=== PATIENT | male | born 1950 | race Caucasian/White ===

== ENCOUNTER 2019-12-07 10:15 | Outpatient (REF) | payer MEDICARE, SELFPAY ==
--- NOTE | 2019-12-07 10:18 | XR_ITS ---
EXAMINATION: XR HIP, RIGHT CLINICAL INFORMATION: Unilateral primary osteoarthritis right hip COMPARISON: Pelvic radiographs 09/20/2019, or radiographs right hip 11/15/2017 TECHNIQUE: AP and frog-lateral projections of the right hip. FINDINGS: There are progressive osteoarthritic changes right hip greatest superior lateral aspect with joint narrowing, osteophytes, subchondral sclerosis, and small geodes. There is bulky osteophyte from the superior lateral acetabulum and small osteophyte base femoral head. There is no fracture or destructive process. No dislocation. The right SI joint in the pubis are unremarkable. IMPRESSION: Progressive osteoarthritic changes right hip.
== END 2019-12-07 10:16 | disposition home or self-care (01) ==
LOC: HO.XRAY 10:15
PROVIDERS: PCP Emergency Medicine; Referring Provider Emergency Medicine; Visit Provider Physician Assistant
DX: M16.11 Unilateral primary osteoarthritis, right hip (principal)
CPT/HCPCS: 73502; 99213

== ENCOUNTER → 2020-02-07 13:37 | Outpatient (BNVA) | payer MEDICARE, SELFPAY | PROVIDERS: PCP Emergency Medicine; Visit Provider Nurse Practitioner | DX: K21.9 Gastro-esophageal reflux disease without esophagitis (principal); K64.9 Unspecified hemorrhoids | CPT/HCPCS: Q3014 ==

== ENCOUNTER → 2020-02-18 12:55 | Outpatient (BNVA) | payer MEDICARE, SELFPAY | PROVIDERS: PCP Emergency Medicine; Visit Provider Surgery | DX: K64.4 Residual hemorrhoidal skin tags (principal) | CPT/HCPCS: 46600; 99202 ==

== ENCOUNTER → 2020-06-11 12:44 | Outpatient (BNVA) | payer MEDICARE, SELFPAY | PROVIDERS: PCP Internal Medicine; Visit Provider Nurse Practitioner | DX: K64.9 Unspecified hemorrhoids (principal); K21.9 Gastro-esophageal reflux disease without esophagitis; K59.04 Chronic idiopathic constipation; R10.33 Periumbilical pain | CPT/HCPCS: 99212 ==

== ENCOUNTER → 2020-06-16 12:41 | Outpatient (BNVA) | payer MEDICARE, SELFPAY | PROVIDERS: PCP Emergency Medicine; Visit Provider Orthopaedic Surgery | DX: M16.11 Unilateral primary osteoarthritis, right hip (principal); Z98.890 Other specified postprocedural states | CPT/HCPCS: 99212 ==

== ENCOUNTER 2020-06-24 09:31 | Outpatient (REF) | payer MEDICARE, SELFPAY ==
--- NOTE | ~2020-06-24 | FL_ITS ---
EXAMINATION: XR UPPER GI SERIES WITH SMALL BOWEL CLINICAL INFORMATION: Chronic etiopathic constipation COMPARISON: None. TECHNIQUE: Upper GI was performed using thin and thick barium and effervescent granules. Small bowel follow-through was subsequently performed following additional thin barium. FINDINGS: The esophagus is normal-appearing. No esophageal hernia, mass, stricture or reflux is seen. The stomach and duodenum are normal-appearing. No fold thickening, mass, ulcer or stricture is seen. Oral contrast reaches the colon at 30 minutes. Small bowel transit is normal. Small bowel mucosal pattern is normal. No fistula, mass, bowel wall thickening, stricture or evidence of obstruction is seen. FLUOROSCOPY TIME: 1.2 minutes DOSE AREA PRODUCT: 17 monique per centimeter squared. 38 saved fluoroscopic images. FL/FL upper GI small bowel IMPRESSION: Normal upper GI and small bowel follow-through.
== END 2020-06-24 09:32 | disposition home or self-care (01) ==
LOC: HO.XRAY 09:31
PROVIDERS: Visit Provider Nurse Practitioner
DX: K59.04 Chronic idiopathic constipation (principal); R10.33 Periumbilical pain
CPT/HCPCS: 74240; 74248

== ENCOUNTER → 2020-07-15 12:37 | Outpatient (BNVA) | payer MEDICARE, SELFPAY | PROVIDERS: Referring Provider Internal Medicine; Visit Provider Nurse Practitioner | DX: R10.33 Periumbilical pain (principal); K64.9 Unspecified hemorrhoids; K21.9 Gastro-esophageal reflux disease without esophagitis; K59.04 Chronic idiopathic constipation | CPT/HCPCS: 99212 ==

== ENCOUNTER → 2020-07-28 15:17 | Outpatient (BNVA) | payer MEDICARE, SELFPAY | PROVIDERS: PCP Internal Medicine; Visit Provider Surgery | DX: K64.8 Other hemorrhoids (principal) | CPT/HCPCS: 46600; 99212 ==

== ENCOUNTER 2020-08-12 06:38 | Day surgery (SDC) | payer MEDICARE, SELFPAY ==
[2020-08-06 14:25] VITALS: BMI 30.9
--- NOTE | 2020-08-11 08:45 | HO.ANESPROP2 ---
HPI - Anesthesia Eval Consult details Narrative: 70yo M for Hemorrhoidectomy, EUA PMFSH Active Problems Active Problems: All Active Problems (Updated 08/05/20 @ 15:38 by Clara Johns) Primary osteoarthritis of right hip (Acute) Chronic idiopathic constipation (Acute) GERD (gastroesophageal reflux disease) (Acute) Hemorrhoids (Acute) Periumbilical abdominal pain (Acute) Hemorrhoids with complication (Acute) Past Medical History Medical History GERD (gastroesophageal reflux disease) Hemorrhoids with complication Family History Family History Brother Diabetes Blind Surgical History Surgical History History of arthroplasty of left hip (11/09/16) History of colonoscopy History of esophagogastroduodenoscopy (EGD) History of prostate surgery (2004) History of pterygium excision Hx of cataract extraction Social History Social History Household Members: None Alcohol intake: current Alcohol intake frequency: holidays/special occasions only Alcohol type: beer Current occupational status: disabled 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
--- NOTE | 2020-08-12 07:18 | MHC.SHP ---
Pre-Procedural Eval Section B Chief Complaint: Hemorrhoids with complication Allergies: Allergies Allergy/AdvReac Type Severity Reaction Status Date / Time No Known Allergies Allergy Verified 07/28/20 15:32 [No Known Allergies*] Plan I have reviewed the history and physical and performed a pertinent physical examination on my patient. No changes have occurred unless specified.
[2020-08-12 07:24] VITALS: BP 139/77; PULSE 75; RESP 16; TEMP 36.3; O2SAT 95
[2020-08-12] MEDS: Lactated Ringers 1,000 ML 100 ML IVCONT (07:35)
--- NOTE | 2020-08-12 08:13 | P.CONAN_ITS ---
[facility] Active Problems Active Problems: All Active Problems (Updated 08/05/20 @ 15:38 by Clara de la paz) Primary osteoarthritis of right hip (Acute) Chronic idiopathic constipation (Acute) GERD (gastroesophageal reflux disease) (Acute) Hemorrhoids (Acute) Periumbilical abdominal pain (Acute) Hemorrhoids with complication (Acute) Past Medical History Medical History GERD (gastroesophageal reflux disease) Hemorrhoids with complication Family History Family History Brother Diabetes Blind Family history of problems with anesthesia: No Surgical History Surgical History History of arthroplasty of left hip (11/09/16) History of colonoscopy History of esophagogastroduodenoscopy (EGD) History of prostate surgery (2004) History of pterygium excision Hx of cataract extraction History of Problems with Anesthesia: No Social History Social History Household Members: None Alcohol intake: current Alcohol intake frequency: holidays/special occasions only Alcohol type: beer Advance Directives Information Provided: No Current occupational status: disabled 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 Meds Allergies Allergy/AdvReac Type Severity Reaction Status Date / Time No Known Allergies Allergy Verified 07/28/20 15:32 [No Known Allergies*] Active Medications: Current Medications Generic Name Dose Route Start Last Admin Trade Name Freq PRN Reason Stop Dose Admin Lactated Ringer's 1,000 mls @ 100 mls/hr 08/12/20 06:15 08/12/20 07:35 Lr IVCONT 100 mls/hr .Q10H IVETTE Administration Home Medications Medication Instructions Recorded Confirmed Last Taken Type tamsulosin 0.4 mg capsule 0.4 mg PO BEDTIME 12/07/19 08/06/20 Unknown History zolpidem 5 mg tablet 5 mg PO BEDTIME PRN 12/07/19 08/06/20 Unknown History Exam Exam Date and Time: August 12, 2020 0813 Height,Weight and Vital Signs: Height 5 ft 6 in Weight 87 kg Last Vital Signs Temp 97.4 F 08/12/20 07:24 Pulse 75 08/12/20 07:24 Resp 16 08/12/20 07:24 BP 139/77 08/12/20 07:24 Pulse Ox 95 08/12/20 07:24 Airway Mallampati Class: I TM Dist: <=3cm Neck ROM: Full Denture: Upper and Lower Assessment and Plan Assessment Anesthesia Assessment: Anesthesia Plan Discussed and Chart Reviewed Final Anesthetic Review NPO: Yes ASA Class: II Final Preanesthetic Review: No Changes in Pt Med Stat, Meds/Allgs Chart Reviewed, Consent Obtained/Reviewed and Anes Risks/Benef Reviewed Patient Risk: Low Procedure Risk: Intermediate Anesthetic Plan Anesthetic Plan: GA and Agree w/ Assess. and Plan Disposition: Standard PACU
--- NOTE | 2020-08-12 09:06 | P.OP_ITS ---
Operative Note Operative Note Date of Service: 08/12/20 Narrative: Preop diagnosis: Internal and external hemorrhoids with pain and recurrent swelling Postop diagnosis: As above Procedure: Exam under anesthesia, hemorrhoidectomy x2 columns Surgeon: José Miguel Kessler MD The patient is a 70-year-old male who has had a long history of hemorrhoids with significant pain and discomfort. In view of worsening symptoms he wanted to proceed with hemorrhoidectomy. He understood the technique of the procedure. He was aware of the risks, benefits, and alternatives. She was brought to the operating room and placed in prone yash-knife position under general anesthesia via laryngeal mask airway. The buttocks were retracted with wide tape laterally. The perianal area was prepped and draped in the usual sterile fashion. A surgical time-out was done. The patient received Cefotan 2 g IV preoperatively Examination of the anal orifice revealed moderate-sized external hemorrhoids on both left and right side. I inserted the Jesus Granda retractor and examined the anal canal circumferentially. Again this mix of internal and external columns were seen on the left and right side. There were no other lesions. There was no fissure. There was no induration in the anal canal. I applied a Orr grasper at the hemorrhoidal column on the right side which was the bigger column. I applied a [id number] stitch with chromic 3- 0 at its pedicle past the dentate line. I made an incision around this hemorrhoidal column to the perianal skin using blade 15. I excised this hemorrhoidal column above the plane of sphincters along this incision using fine scissors all the way to the pedicle. I closed this incision with a running chromic 3-0 stitch. Additional hemostatic sutures with a chromic 3-0 were then placed. I then proceeded to retract the hemorrhoidal column on the left side with a Orr grasper as well. I applied a fvdtwx-[id number] chromic 3-0 stitch at the pedicle. I made an incision around this hemorrhoidal column all the way to the perianal skin using a blade 15. I excised this hemorrhoidal column above the plane of sphincters using scissors. I closed this incision with a running chromic 3-0 stitch. Additional hemostatic sutures with a chromic 3-0 were then placed Once hemostasis was ensured, I infiltrated the perianal area with Marcaine 0.5% for postop analgesia. I positioned a rolled Gelfoam into the anal canal for additional hemostasis. Procedures on completed The patient tolerated procedure well. There were no complication noted. Initial and final counts of sponges and instruments were correct. Estimated blood loss about 20 cc The patient was extubated without difficulty and transferred to the recovery room with stable vital signs.
[2020-08-12 09:10] VITALS: BP 154/88; PULSE 72; RESP 18; TEMP 36.5; O2SAT 99
--- NOTE | 2020-08-12 09:10 | PM.OP ---
Brief Operative Note Date of Service: 08/12/20 Pre-op diagnosis: Internal and external hemorrhoids Post-op diagnosis: same Procedure: Exam under anesthesia hemorrhoidectomy x2 Surgeon: José Miguel Kessler MD Anesthesia: GLMA Was an Hot Metal Car Operator used for this Procedure?: No Estimated blood loss (mL): 20 Pathology: other (Hemorrhoids) Condition: stable Disposition: PACU
[2020-08-12 09:15] VITALS: BP 147/78; PULSE 68; RESP 16; O2SAT 100
[2020-08-12] MEDS: oxyCODONE HCl Immed Release 5 MG TABLET PO (09:18)
[2020-08-12] MEDS: Acetaminophen 325 MG TABLET 650 MG PO (09:18)
[2020-08-12 09:20] VITALS: BP 142/79; PULSE 72; RESP 18; O2SAT 99
[2020-08-12 09:25] VITALS: BP 141/67; PULSE 64; RESP 16; O2SAT 98
[2020-08-12 09:40] VITALS: BP 137/76; PULSE 67; RESP 18; O2SAT 98
== END 2020-08-12 10:44 | disposition home or self-care (01) ==
PROVIDERS: Visit Provider Surgery
PROC: (CPT 46260; principal; 2020-08-12 08:30)
DX: K64.8 Other hemorrhoids (principal); K64.4 Residual hemorrhoidal skin tags; K21.9 Gastro-esophageal reflux disease without esophagitis; Z79.899 Other long term (current) drug therapy
CPT/HCPCS: 46260; 88304; J3010

== ENCOUNTER → 2020-08-19 10:02 | Outpatient (BNVA) | payer MEDICARE, SELFPAY | PROVIDERS: PCP Internal Medicine; Visit Provider Orthopaedic Surgery ==

== ENCOUNTER → 2020-09-01 14:59 | Outpatient (BNVA) | payer MEDICARE, SELFPAY | PROVIDERS: PCP Internal Medicine; Visit Provider Surgery | DX: Z48.815 Encounter for surgical aftercare following surgery on the digestive system (principal); Z87.19 Personal history of other diseases of the digestive system | CPT/HCPCS: 99212 ==

== ENCOUNTER 2020-09-18 | Outpatient (REF) | payer MEDICARE, SELFPAY ==
--- NOTE | 2020-08-19 11:02 | ECG_ITS ---
Test Reason : PREPROC EXAM Blood Pressure : / mmHG Vent. Rate : 066 BPM Atrial Rate : 066 BPM P-R Int : 158 ms QRS Dur : 080 ms QT Int : 374 ms P-R-T Axes : 064 018 033 degrees QTc Int : 392 ms Sinus rhythm with Premature atrial complexes with Aberrant conduction Otherwise normal ECG When compared with ECG of 04-SEP-2015 23:12, Aberrant conduction is now Present Referred By: Hang Manzo Electronically Signed By:LATOSHA WOLFF MD
[2020-08-19 11:43] LABS: MANUAL DIFF FLAG NO
[2020-08-19 11:59] LABS: Basophils Percent Auto 0.4 % (0-2); Eosinophils Absolute Auto 0.2 X10*3/uL (0.0-0.4); Eosinophils Percent Auto 2.4 % (0-4); Hematocrit 38.5 % (42-52); Hemoglobin 12.9 g/dl (14.0-18.0); Imm Gran Abs Auto 0.05 X10*3/uL (0.00-0.03); Imm Gran Pct Auto 0.7 % (0.0-0.4); Lymphocytes Absolute Auto 2.1 X10*3/uL (1.2-4.9); Lymphocytes Percent Auto 27.9 % (20-40); Mean Corpuscular HGB Conc 33.5 g/dl (31.0-36.0); Mean Corpuscular Hemoglobin 30.7 pg (27.0-33.0); Mean Corpuscular Volume 91.7 fL (80-98); Mean Platelet Volume 9.9 fL (9.4-12.4); Monocytes Absolute Auto 0.6 X10*3/uL (0.1-1.2); Monocytes Percent Auto 7.6 % (2-11); Neutrophils Absolute Auto 4.6 X10*3/uL (2.0-8.3); Platelet Count 270 X10*3/uL (160-400); Red Cell Distribution Width 13.6 % (11.0-16.0); White Blood Count 7.5 X10*3/uL (4.8-10.8)
[2020-08-19 12:40] LABS: Anion Gap 11 (12-20); Blood Urea Nitrogen 11 mg/dL (9-16); Calcium 9.8 mg/dL (8.4-10.2); Carbon Dioxide 21 mmol/L (22-29); Chloride 113 mmol/L (96-108); Estimated Glomerular Filt Rate > 60; Glucose Random 89 mg/dL (60-115); Potassium 4.3 mmol/L (3.3-5.1); Sodium 141 mmol/L (135-145)
== END 2020-09-18 00:01 | disposition home or self-care (01) ==
LOC: HO.LAB
PROVIDERS: PCP Internal Medicine; Visit Provider Orthopaedic Surgery
DX: Z01.812 Encounter for preprocedural laboratory examination (principal); Z01.810 Encounter for preprocedural cardiovascular examination; M16.11 Unilateral primary osteoarthritis, right hip; I49.3 Ventricular premature depolarization; I45.89 Other specified conduction disorders
CPT/HCPCS: 36415; 80048; 85025; 93005

== ENCOUNTER → 2020-10-09 12:34 | Outpatient (BNVA) | payer MEDICARE, SELFPAY | PROVIDERS: PCP Internal Medicine; Visit Provider Physician Assistant | DX: M16.11 Unilateral primary osteoarthritis, right hip (principal) | CPT/HCPCS: 99212 ==

== ENCOUNTER 2020-10-15 06:36 | Inpatient (IN) | payer MEDICARE, SELFPAY ==
[2020-09-18 12:32] VITALS: BP 112/69; PULSE 70; RESP 20; O2SAT 98; BMI 29.8
--- NOTE | 2020-09-18 13:05 | P.CONAN_ITS ---
Documented by User: Yusra Becerril NP 10/14/20 09:18 HPI - Anesthesia Eval Consult details Narrative: 70yo M for for Right Total Hip Replacement s/p hemmoroidectomy 07/2020 with GA-LMA 4 s/p L MERISSA 2016. Anesthesia went very well per patient. Old record requested. PCP cleared [facility] Active Problems Active Problems: All Active Problems (Updated 09/18/20 @ 12:45 by Clara Johns) Primary osteoarthritis of right hip (Acute) Chronic idiopathic constipation (Acute) GERD (gastroesophageal reflux disease) (Acute) Hemorrhoids (Acute) Periumbilical abdominal pain (Acute) Hemorrhoids with complication (Acute) Past Medical History Medical History Arthritis COVID-19 vaccine administered GERD (gastroesophageal reflux disease) Hemorrhoids with complication History of BPH HTN (hypertension) Family History Family History Brother Diabetes Blind Family history of problems with anesthesia: No Surgical History Surgical History History of arthroplasty of left hip (11/09/16) History of colonoscopy History of esophagogastroduodenoscopy (EGD) History of hemorrhoidectomy History of prostate surgery (2004) History of pterygium excision Hx of cataract extraction History of Problems with Anesthesia: No Social History Social History Household Members: None Are you a primary director career services to a significant other at home: No Do you presently have visiting nurse or other home services: Yes ([facility]) Alcohol intake: current Alcohol intake frequency: holidays/special occasions only Alcohol type: beer Patient Tobacco Use Status: Never used Tobacco Are you DNR?: No Advance Directives: No Advance Directives Information Provided: Yes (states his son Sharif-no official HCP on file) Advance Directives on File: No Recently lost weight without trying: No Eating poorly because of decreased appetite: No Nutrition Risks: No Nutritional Risk Poor oral hygiene: No (one upper implant screw but no teeth at this time) Current occupational status: disabled 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 Narrative Narrative: No recent illness No CP/SOB within limits of pain Meds Allergies Allergy/AdvReac Type Severity Reaction Status Date / Time No Known Allergies Allergy Verified 10/09/20 12:42 [No Known Allergies*] Home Medications Medication Instructions Recorded Confirmed Last Taken Type tamsulosin 0.4 mg capsule (Flomax) 0.4 mg PO BEDTIME 12/07/19 09/18/20 Unknown History zolpidem 5 mg tablet (Ambien) 5 mg PO BEDTIME PRN 12/07/19 09/18/20 Unknown History lisinopril 10 mg tablet 1 tab PO DAILY 09/18/20 09/18/20 Unknown History paroxetine HCl 20 mg tablet 1 tab PO DAILY 09/18/20 09/18/20 Unknown History sennosides 8.6 mg tablet (senna) 2 tab PO DAILY PRN 09/18/20 09/18/20 Unknown History Exam Exam Date and Time: September 18, 2020 1305 Height,Weight and Vital Signs: Height 5 ft 6 in Weight 83.915 kg Last Vital Signs Pulse 70 09/18/20 12:32 Resp 20 09/18/20 12:32 BP 112/69 09/18/20 12:32 Pulse Ox 98 09/18/20 12:32 Pertinent Lab Results Pertinent Lab Results: Laboratory Tests 08/19/20 08/19/20 11:10 11:10 WBC 7.5 Hgb 12.9 L Hct 38.5 L Plt Count 270 Sodium 141 Potassium 4.3 Chloride 113 H Carbon Dioxide 21 L BUN 11 Creatinine 1.15 Lab Results 09/18/20 10/10/20 Range/Units 13:00 14:25 Nasal Screen MRSA (PCR) NEGATIVE (Negative) Nasal S. aureus Screen POSITIVE A (Negative) Nasal MRSA/S.aureus Interp SEE NOTE Blood Type A Positive Antibody Screen NEGATIVE Narrative Narrative: EKG 07/2020 Vent. Rate : 066 BPM ? ? Atrial Rate : 066 BPM ?? P-R Int : 158 ms? QRS Dur : 080 ms ? ? QT Int : 374 ms ? ? ? P-R-T Axes : 064 018 033 degrees ?? QTc Int : 392 ms ? Sinus rhythm with Premature atrial complexes with Aberrant conduction Otherwise normal ECG When compared with ECG of 04-SEP-2015 23:12, Aberrant conduction is now Present Airway Mallampati Class: II TM Dist: >3cm Neck ROM: Full Loose/Missing/Broken Teeth: Yes Heart: RRR Lungs: CTAB Assessment and Plan Assessment Anesthesia Assessment: Anesthesia Plan Discussed and PAT Visit Final Anesthetic Review Family History of Problems with Anesthesia: No History of Problems with Anesthesia: No Documented by User: Yana Gonzalez MD 10/15/20 07:04 [facility] Past Medical History Medical History Arthritis COVID-19 vaccine administered GERD (gastroesophageal reflux disease) Hemorrhoids with complication History of BPH HTN (hypertension) Family History Family History Brother Diabetes Blind Surgical History Surgical History History of arthroplasty of left hip (11/09/16) History of colonoscopy History of esophagogastroduodenoscopy (EGD) History of hemorrhoidectomy History of prostate surgery (2004) History of pterygium excision Hx of cataract extraction Social History Social History Household Members: None Are you a primary director career services to a significant other at home: No Do you presently have visiting nurse or other home services: Yes ([employer]-gran daughter) Alcohol intake: current Alcohol intake frequency: holidays/special occasions only Alcohol type: beer Patient Tobacco Use Status: Never used Tobacco Are you DNR?: No Advance Directives: No Advance Directives Information Provided: Yes (states his son Sharif-no official HCP on file) Advance Directives on File: No Recently lost weight without trying: No Eating poorly because of decreased appetite: No Nutrition Risks: No Nutritional Risk Poor oral hygiene: No (one upper implant screw but no teeth at this time) Current occupational status: disabled 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 Meds Allergies Allergy/AdvReac Type Severity Reaction Status Date / Time No Known Allergies Allergy Verified 10/09/20 12:42 [No Known Allergies*] Home Medications Medication Instructions Recorded Confirmed Last Taken Type tamsulosin 0.4 mg capsule (Flomax) 0.4 mg PO BEDTIME 12/07/19 09/18/20 Unknown History zolpidem 5 mg tablet (Ambien) 5 mg PO BEDTIME PRN 12/07/19 09/18/20 Unknown History lisinopril 10 mg tablet 1 tab PO DAILY 09/18/20 09/18/20 Unknown History paroxetine HCl 20 mg tablet 1 tab PO DAILY 09/18/20 09/18/20 Unknown History sennosides 8.6 mg tablet (senna) 2 tab PO DAILY PRN 09/18/20 09/18/20 Unknown History Assessment and Plan Assessment Anesthesia Assessment: Chart Reviewed Final Anesthetic Review NPO: Yes ASA Class: II Final Preanesthetic Review: No Changes in Pt Med Stat, Meds/Allgs Chart Reviewed, Consent Obtained/Reviewed and Anes Risks/Benef Reviewed Patient Risk: Low Procedure Risk: Intermediate Assessment/Block/Sedation in SS: Assess/Block/Sedation- Anesthetic Plan Anesthetic Plan: GA
[2020-09-18 15:13] LABS: MRSA Nasal PCR NEGATIVE (Negative); SA Nasal PCR POSITIVE (Negative)
[2020-10-15] VITALS (13 sets, daily range): BP systolic 127–151; BP diastolic 54–95; PULSE 62–99; RESP 16–20; TEMP 36.3–36.8; O2SAT 94–100
--- NOTE | ~2020-10-15 | XR_ITS ---
EXAMINATION: XR PELVIS CLINICAL INFORMATION: Post right hip replacement COMPARISON: Previous x-ray most recent November 2019 TECHNIQUE: AP view of the pelvis. FINDINGS: There is a new right hip replacement in satisfactory position. No fracture or dislocation is seen. There is a left hip replacement that appears unchanged. Soft tissues are unremarkable. XR/XR pelvis 1-2V IMPRESSION: Satisfactory appearance of right hip replacement.
[2020-10-15 06:51] LABS: COVID-19 Test Negative (Negative)
[2020-10-15] MEDS: oxyCODONE HCl ER 10 MG TAB.ER.12H PO ×2 (07:08→20:03)
[2020-10-15] MEDS: Lactated Ringers 1,000 ML 100 ML IVCONT (07:22)
--- NOTE | 2020-10-15 07:26 | MHC.SHP ---
Pre-Procedural Eval Section A Date of Service: 10/15/20 The patient is an INPATIENT: No Changes since office visit: Yes Patient answered all questions; No Cold of Flu in the past 2 weeks, No New Medical Problems and No Changes in Medication The History & Physical has been completed within 30 days and I have reviewed it.: Yes Section B Chief Complaint: Osteoarthritis Right Hip Allergies: Allergies Allergy/AdvReac Type Severity Reaction Status Date / Time No Known Allergies Allergy Verified 10/15/20 07:07 [No Known Allergies*] Plan I have reviewed the history and physical and performed a pertinent physical examination on my patient. No changes have occurred unless specified.
--- NOTE | 2020-10-15 09:26 | P.BOP_ITS ---
Brief Operative Note Date of Service: 10/15/20 Pre-op diagnosis: right hip OA Post-op diagnosis: same Procedure: right MERISSA Implants: Trident 2 52; Accolade 2 #5 127 deg with 36 -2.5 ceramic head and 20 deg post lip liner Surgeon: Hang Manzo MD Anesthesia: GETA and local Was an Technical Solutions Consultant used for this Procedure?: Yes Technical Solutions Consultant: Margoth Sadler Estimated blood loss (mL): 150 IV fluids (mL): 1,000 Pathology: other Condition: stable Disposition: PACU
--- NOTE | 2020-10-15 09:33 | P.OP_ITS ---
Operative Note Operative Note Date of Service: 10/15/20 Narrative: Pre-op diagnosis: right hip OA Post-op diagnosis: same Procedure: right MERISSA Implants: Trident 2 52; Accolade 2 #5 127 deg with 36 -2.5 ceramic head and 20 deg post lip liner Surgeon: Hang Manzo MD Anesthesia: GETA and local Was an Digital Design Engineer used for this Procedure?: Yes Digital Design Engineer: Margoth Sadler Estimated blood loss (mL): 150 IV fluids (mL): 1,000 Pathology: other Condition: stable Disposition: PACU Procedure in detail: Patient was brought into the operating room and placed in the lateral decubitus position. All bony prominences were well padded and the limb was prepped and draped in standard sterile fashion. Time-out was called to identify proper site, procedure, proper surgeon and IV antibiotics and 1 g of transaxemic acid were administered. I began by making a curvilinear incision over the ophthalmic assistant olateral aspect of the greater trochanter. Dissection was taken down to the tensor fascia which was incised in line with the incision and a Charnley retractor was placed. Cautery was used to maintain hemostasis. The hip was internally rotated and the external rotators were identified. The vessels were cauterized and a full-thickness capsular/external rotator layer was developed starting just proximal to the piriformis. This layer was tagged and a dull Hohmann retractor was placed underneath the neck in the hip was dislocated. The head was deformed and eburnated. A neck cut was made 1 cm proximal to the lesser trochanter and the head and neck were removed and measured on the back table. I then placed my anterior and posterior acetabular retractors and performed a labrectomy. The cup was reamed to a 52 and I then impacted a 52 cup at approximately 45 degrees of inclination and 25 degrees of version. I then placed a ___20 deg posterior lipped liner and turned my attention to the femur. I identified the piriformis insertion and used this as a starting point for my alida cutter. The medius tendon was protected with a Hibs retractor. I then used a Charnley awl to identify the canal and a curved curette to remove the lateral bone. I then sequentially broached in the patient's natural version to a size 5 and placed my trial implants. Using a -5 36 head. I took the hip through range of motion and was very satisfied with the stability and length. Therefore removed all instrumentation copiously irrigated placed my final femoral implant. I again took the hip through range of motion and was satisfied with the stability and length using a -2.5 and so my final femoral head was impacted in place. I then irrigated for 3 minutes with iodine and placed 1 g of local TXA. I then performed a capsular closure with FiberWire, Marc's fascia with 0 Vicryl, subcuticular with 2-0 vicryl and skin with carlota. Patient was placed into a sterile dressing. Radiographs were obtained at the completion of the case and I was satisfied with the component position. Patient was extubated brought to the recovery room in stable condition.
[2020-10-15] MEDS: HYDROmorphone HCl 0.5 MG/0.5 ML SYRINGE IVPUSH (09:51)
[2020-10-15] MEDS: oxyCODONE HCl Immed Release 5 MG TABLET PO (10:50)
[2020-10-15] MEDS: Dextrose 5 % and 0.45 % NaCl 1,000 ML 80 ML IVCONT ×2 (11:41→21:41)
[2020-10-15] MEDS: HYDROmorphone HCl 0.5 MG/0.5 ML SYRINGE 0.25 MG IVPUSH (12:08)
--- NOTE | 2020-10-15 13:23 | HO.PM.IMCN ---
History of Present Illness Data of Consult Service Date: 10/15/20 Requesting physician: Hang Manzo Primary Care Provider: Frances Lua MD [facility] Reason for consult: Medical Management This is a 70 yo M with a PMH as outlined below who is admitted post-op from a [facility] under the orthopedic services. Medical services are consulted for management of his medical issues. Patient is seen and examined on med/surg with the help of a Nigerian speaking computer hardware designer. The patient reports no active complaints. He ambulated with PT and reports he felt well doing so. In regards to his chronic medical problems, he reports he has none. Review of Systems Review of Systems: General - no fevers or chills Cardiovascular - no chest pain Respiratory - no shortness of breath or cough Abdominal- no abdominal pain, nausea, vomiting, diarrhea PMFSH Medical History Arthritis COVID-19 vaccine administered GERD (gastroesophageal reflux disease) Hemorrhoids with complication History of BPH HTN (hypertension) Family History Brother Diabetes Blind Pertinent family history: Diabetes in brother, mother Surgical History History of arthroplasty of left hip (11/09/16) History of colonoscopy History of esophagogastroduodenoscopy (EGD) History of hemorrhoidectomy History of prostate surgery (2004) History of pterygium excision Hx of cataract extraction Social History Household Members: None Are you a primary direct support professional caregiver to a significant other at home: No Do you presently have visiting nurse or other home services: Yes ([facility]) Alcohol intake: current Alcohol intake frequency: holidays/special occasions only Alcohol type: beer Patient Tobacco Use Status: Never used Tobacco Currently Displaying Signs/Symptoms of Drug Intoxication Withdrawal: No Are you DNR?: No Advance Directives: No Advance Directives Information Provided: Yes (states his son Sharif-no official HCP on file) Advance Directives on File: No Do you have thoughts of harming others: None Recently lost weight without trying: No Eating poorly because of decreased appetite: No Nutrition Risks: No Nutritional Risk Poor oral hygiene: No (one upper implant screw but no teeth at this time) Current occupational status: disabled 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 Meds Allergies Allergy/AdvReac Type Severity Reaction Status Date / Time No Known Allergies Allergy Verified 10/15/20 07:07 [No Known Allergies*] Active Medications: Current Medications Generic Name Dose Route Start Last Admin Trade Name Freq PRN Reason Stop Dose Admin Acetaminophen 650 mg 10/15/20 09:39 Acetaminophen 325 Mg Tablet PO Q6H PRN Pain, Mild (Pain Scale 1-3) Celecoxib 200 mg 10/15/20 21:00 Celecoxib 200 Mg Capsule PO BID [facility] Docusate Sodium 100 mg 10/15/20 21:00 Docusate Sodium 100 Mg Capsule PO BID IVETTE Docusate Sodium 100 mg 10/15/20 21:00 Docusate Sodium 100 Mg Capsule PO BID [facility] Hydromorphone HCl 0.25 mg 10/15/20 09:39 10/15/20 12:08 Hydromorphone Hcl 0.5 Mg/0.5 Ml Syringe IVPUSH 0.25 mg Q4H PRN Administration Pain, Severe (Pain Scale 7-10) Protocol Dextrose/Sodium Chloride 1,000 mls @ 80 mls/hr 10/15/20 09:45 10/15/20 11:41 D51/2ns IVCONT 80 mls/hr .[id number] IVETTE Administration Cefazolin Sodium 2 gm/ Sodium 50 mls @ 100 mls/hr 10/15/20 14:00 Chloride IV 10/15/20 14:29 POSTOP ONE Lisinopril 10 mg 10/16/20 09:00 Lisinopril 10 Mg Tablet PO DAILY [facility] Protocol Non-Formulary Medication 60 mg 10/15/20 21:00 Dexlansoprazole [Dexilant] PO BEDTIME IVETTE Ondansetron HCl 4 mg 10/15/20 09:39 Ondansetron Hcl 4 Mg/2 Ml Vial IVPUSH Q8H PRN Nausea and Vomiting Oxycodone HCl 10 mg 10/15/20 21:00 Oxycodone Hcl Er 10 Mg Tab.Er.12h PO BID IVETTE Oxycodone HCl 5 - 10 mg 10/15/20 13:19 Oxycodone Hcl Immed Release 5 Mg Tablet PO Q4H PRN Pain, Moderate (Pain Scale 4-6 Paroxetine HCl 20 mg 10/16/20 09:00 Paroxetine Hcl 20 Mg Tablet PO DAILY IVETTE Sodium Chloride 3 ml 10/15/20 16:00 0.9 % Sodium Chloride Flush 3 Ml Syringe IVFLUSH QSHIFT IVETTE Tamsulosin HCl 0.4 mg 10/15/20 21:00 Tamsulosin Hcl 0.4 Mg Capsule PO BEDTIME IVETTE Zolpidem Tartrate 5 mg 10/15/20 13:15 Zolpidem Tartrate 5 Mg Tablet PO BEDTIME PRN Insomnia Home Medications Medication Instructions Recorded Confirmed Last Taken Type tamsulosin 0.4 mg capsule (Flomax) 0.4 mg PO BEDTIME 12/07/19 09/18/20 Unknown History zolpidem 5 mg tablet (Ambien) 5 mg PO BEDTIME PRN 12/07/19 09/18/20 Unknown History lisinopril 10 mg tablet 1 tab PO DAILY 09/18/20 09/18/20 Unknown History paroxetine HCl 20 mg tablet 1 tab PO DAILY 09/18/20 09/18/20 Unknown History sennosides 8.6 mg tablet (senna) 2 tab PO DAILY PRN 09/18/20 09/18/20 Unknown History Physical Exam Vital Signs and Narrative: Vital Signs: Last Vital Signs Temp 97.3 F 10/15/20 12:00 Pulse 67 10/15/20 12:00 Resp 17 10/15/20 12:00 BP 146/75 H 10/15/20 12:00 Pulse Ox 99 10/15/20 12:00 Body Mass Index 29.8 Const: Other: General - no acute distress, appears comfortable Cardiovascular - regular rate and rhythm, S1-S2 Lungs - normal respiratory effort, clear to auscultation bilaterally, no wheezing Abdomen - soft, nontender, no rebound or guarding Extremities - no edema bilaterally Neuro - awake and alert, no focal deficits Results Labs Labs: Laboratory Results - last 24 hr 10/15/20 06:30 COVID-19 ([facility]) Negative COVID-19 Clin Com See Note Imaging Radiologist's Impressions: Impressions Pelvis X-Ray 10/15/20 08:20 IMPRESSION: Satisfactory appearance of right hip replacement. Assessment and Plan (1) Primary osteoarthritis of right hip: Status: Acute This is a 70 yo M with who is admitted under the orthopedic services post-op from a R [facility]. Medical services consulted for medical management. 1. HTN continue lisinopril 2. GERD PPI -- his home med is NF, changed to Prilosec 3. Constipation continue scheduled colace 4. Mood continue Paroxetine 5. BPH flomax 6. R [facility] mgmt per ortho Medically stable, will follow up as needed. If any specific questions, please re-consult PRN or [facility]. Thank you.
[2020-10-15] MEDS: oxyCODONE HCl Immed Release 5 MG TABLET 10 MG PO (14:05)
[2020-10-15] MEDS: Tamsulosin HCL 0.4 MG CAPSULE PO (20:03)
[2020-10-15] MEDS: Docusate Sodium 100 MG CAPSULE PO (20:03)
[2020-10-15] MEDS: Omeprazole 40 MG CAPSULE.DR PO (20:03)
[2020-10-15] MEDS: Celecoxib 200 MG CAPSULE PO (20:03)
[2020-10-16] VITALS (7 sets, daily range): BP systolic 106–131; BP diastolic 63–65; PULSE 63–80; RESP 16–18; TEMP 36.1–36.7; O2SAT 96–98
[2020-10-16] MEDS: diphenhydrAMINE HCL 25 MG TABLET PO (00:37)
[2020-10-16 06:18] LABS: Hematocrit 34.9 % (42-52); Hemoglobin 11.7 g/dl (14.0-18.0)
[2020-10-16] MEDS: oxyCODONE HCl Immed Release 5 MG TABLET PO (06:27)
[2020-10-16 06:46] LABS: Anion Gap 9 (12-20); Blood Urea Nitrogen 9 mg/dL (9-16); Carbon Dioxide 26 mmol/L (22-29); Chloride 106 mmol/L (96-108); Creatinine Clr Calc Pharmacy 84.5; Estimated Glomerular Filt Rate > 60; Glucose Fasting 135 mg/dL (60-99); Potassium 4.1 mmol/L (3.3-5.1); Sodium 137 mmol/L (135-145)
--- NOTE | 2020-10-16 07:45 | P.PNOP_ITS ---
Subjective Subjective Date of Service: 10/16/20 Interval history: POD! s/p RTHA with Dr. Manzo. Patient is resting comfortably in bed. NO overnight events. Pain is well managed. No additional complaints. Physical Exam Vital Signs: Vital Signs: Last Vital Signs Temp 96.9 F 10/16/20 07:31 Pulse 66 10/16/20 07:31 Resp 16 10/16/20 07:31 BP 131/65 10/16/20 07:31 Pulse Ox 96 10/16/20 07:31 Body Mass Index 29.8 Const: General: cooperative, healthy appearing and no acute distress Resp: Effort & Inspection: normal respiratory effort and able to speak in complete sentences Cardio: Rate: regular rate Peripheral pulses: Peripheral pulses 2+ throughout GI: Palpation (GI): Soft to palpation Skin: Lesions: no lesions Rashes: no rashes Extrem: Other: Right hip aquacel is clean, dry, and intact. Patient is able to plantarflex and dorsiflex. NVI. Procedures Date of Service Date of Service: 10/16/20 Progress Note: A&P Assessment and plan (1) Status post total replacement of right hip: Status: Acute Assessment and Plan: Continue pain mgmnt Begin ASA for dvt ppx Continue PT for RTHA Dispo planning-Continue PT today and pain mgmnt Fall Risk Details Current Medications: Current Medications Generic Name Dose Route Start Last Admin Trade Name Freq PRN Reason Stop Dose Admin Acetaminophen 650 mg 10/15/20 09:39 Acetaminophen 325 Mg Tablet PO Q6H PRN Pain, Mild (Pain Scale 1-3) Celecoxib 200 mg 10/15/20 21:00 10/15/20 20:03 Celecoxib 200 Mg Capsule PO 200 mg BID IVETTE Administration Docusate Sodium 100 mg 10/15/20 21:00 10/15/20 20:03 Docusate Sodium 100 Mg Capsule PO 100 mg BID IVETTE Administration Hydromorphone HCl 0.25 mg 10/15/20 09:39 10/15/20 12:08 Hydromorphone Hcl 0.5 Mg/0.5 Ml Syringe IVPUSH 0.25 mg Q4H PRN Administration Pain, Severe (Pain Scale 7-10) Protocol Dextrose/Sodium Chloride 1,000 mls @ 80 mls/hr 10/15/20 09:45 10/15/20 21:41 D51/2ns IVCONT 80 mls/hr .[id number] IVETTE Administration Lisinopril 10 mg 10/16/20 09:00 Lisinopril 10 Mg Tablet PO DAILY [facility] Protocol Omeprazole 40 mg 10/15/20 21:00 10/15/20 20:03 Omeprazole 40 Mg Capsule.Dr PO 40 mg BEDTIME IVETTE Administration Ondansetron HCl 4 mg 10/15/20 09:39 Ondansetron Hcl 4 Mg/2 Ml Vial IVPUSH Q8H PRN Nausea and Vomiting Oxycodone HCl 10 mg 10/15/20 21:00 10/15/20 20:03 Oxycodone Hcl Er 10 Mg Tab.Er.12h PO 10 mg BID IVETTE Administration Oxycodone HCl 5 mg 10/15/20 13:19 10/16/20 06:27 Oxycodone Hcl Immed Release 5 Mg Tablet PO 5 mg Q4H PRN Administration Pain, Moderate (Pain Scale 4-6 Oxycodone HCl 10 mg 10/15/20 13:28 10/15/20 14:05 Oxycodone Hcl Immed Release 5 Mg Tablet PO 10 mg Q4H PRN Administration Pain, Severe (Pain Scale 7-10) Paroxetine HCl 20 mg 10/16/20 09:00 Paroxetine Hcl 20 Mg Tablet PO DAILY IVETTE Sodium Chloride 3 ml 10/15/20 16:00 10/16/20 00:17 0.9 % Sodium Chloride Flush 3 Ml Syringe IVFLUSH Not Given QSHIFT IVETTE Tamsulosin HCl 0.4 mg 10/15/20 21:00 10/15/20 20:03 Tamsulosin Hcl 0.4 Mg Capsule PO 0.4 mg BEDTIME IVETTE Administration Zolpidem Tartrate 5 mg 10/15/20 13:15 Zolpidem Tartrate 5 Mg Tablet PO BEDTIME PRN Insomnia Time Spent With Patient Time: Total time spent is greater than 50% in coordination of care (as documented) at patient's floor/unit and/or counseling patient: Time with patient: less than 15 minutes Quality Stroke Does the patient have a stroke diagnosis?: No VTE Prior VTE?: No VTE Risk Level:: Surgical - low VTE Device Contraindication: N/A - Device Ordered VTE Drug Contraindication: N/A - Med Ordered
[2020-10-16] MEDS: Docusate Sodium 100 MG CAPSULE PO (07:48)
[2020-10-16] MEDS: oxyCODONE HCl ER 10 MG TAB.ER.12H PO (07:48)
[2020-10-16] MEDS: Celecoxib 200 MG CAPSULE PO (07:49)
[2020-10-16] MEDS: PARoxetine HCL 20 MG TABLET PO (07:49)
[2020-10-16] MEDS: lisinopriL 10 MG TABLET PO (07:49)
--- NOTE | 2020-10-16 08:45 | HO.POSTANES ---
Post Anesthesia Evaluation Post Anesthesia Evaluation Vital Signs: Vital Signs Temp Pulse Resp BP Pulse Ox 10/16/20 07:31 96.9 F 66 16 131/65 96 10/16/20 07:15 96.9 F 66 16 131/65 96 10/16/20 03:14 98.1 F 63 16 114/63 98 10/16/20 00:00 97.6 F 68 18 116/63 98 Anesthesia: General Endotracheal-GETA Mental Status: Awake Pain Control: Satisfactory Nausea/Vomiting: None Hydration: Adequate Anesthesia-Related Issues: No Anes. Related Issues
[2020-10-16] MEDS: Aspirin 325 MG TABLET PO (12:47)
--- NOTE | 2020-10-16 12:59 | P.DS_ITS ---
DS: Providers Provider Date of Service: 10/16/20 Date of admission: 10/15/20 06:36 Primary care physician: Frances Lua MD Consults: 10/15/20 09:39 Consult to Medicine Routine Consulting Provider: Hospitalist Reason for consultation: medical management routine DS: Diagnosis Discharge Diagnosis (1) Status post total replacement of right hip: Status: Acute DS: Medications Discharge Medications Home Medications: Home Medications Medication Instructions Recorded Confirmed tamsulosin 0.4 mg capsule (Flomax) 0.4 mg PO BEDTIME 12/07/19 09/18/20 zolpidem 5 mg tablet (Ambien) 5 mg PO BEDTIME PRN 12/07/19 09/18/20 lisinopril 10 mg tablet 1 tab PO DAILY 09/18/20 09/18/20 paroxetine HCl 20 mg tablet 1 tab PO DAILY 09/18/20 09/18/20 sennosides 8.6 mg tablet (senna) 2 tab PO DAILY PRN 09/18/20 09/18/20 Previous Rx's Medication Instructions Recorded walker #1 ea 12/07/19 linaclotide 290 mcg capsule 290 mcg PO DAILY 30 Days #30 cap 06/11/20 (Linzess) docusate sodium 100 mg capsule 100 mg PO BID #60 cap 08/12/20 (Colace) ibuprofen 600 mg tablet 600 mg PO Q6H PRN #30 tab 08/12/20 oxycodone-acetaminophen 5 mg-325 1 - 2 tab PO Q4-6H PRN #30 tab 08/12/20 mg tablet (Percocet) dexlansoprazole 60 mg 60 mg PO BEDTIME #30 cap 09/03/20 capsule,biphase delayed release (Dexilant) hydrocortisone 2.5 % topical cream 1 appl [place] BID 14 Days #30 g 09/03/20 with perineal applicator (Proctozone-HC) acetaminophen 325 mg tablet 650 mg PO Q6H PRN 30 Days #240 tab 10/16/20 aspirin 325 mg tablet,delayed 325 mg PO BID #84 tab 10/16/20 release celecoxib 200 mg capsule 200 mg PO BID 30 Days #60 cap 10/16/20 docusate sodium 100 mg capsule 100 mg PO BID 30 Days #60 cap 10/16/20 oxycodone 5 mg tablet 5 mg PO Q4H PRN 7 Days #42 tab 10/16/20 DS: Summary Hospital Course Hospital Course: Mr. Vega is a 70-year-old male who presented to the office with ongoing right hip pain. He was found to have osteoarthritis of the right hip and failed all conservative treatment. He continued to have difficulty with ambulation and daily activities. Therefore, he consented to move forward with a right total hip arthroplasty. The patient underwent a successful right total hip arthroplasty, they were transferred to PACU and then to the floor to recover. During their stay, their vitals were stable, afebrile at 96.9. Labs were unremarkable, H/H (11.7/34.9). POD 1 they were started on Aspirin 325mg po bid for DVT ppx, they also received Physical Therapy services twice a day. Prior to discharge, their dressing was changed, incision clean dry and intact, new Aquacel dressing applied and the plan was to be discharged home with VNA services. Time Spent with Patient Time attestation: Total time spent providing and/or coordinating discharge services: Discharge coordination time: Less than 30 minutes Quality: Stroke Does the patient have a stroke diagnosis?: No Physical Exam Vital Signs: Vital Signs: Last Vital Signs Temp 96.9 F 10/16/20 11:07 Pulse 80 10/16/20 11:07 Resp 17 10/16/20 11:07 BP 106/63 10/16/20 11:07 Pulse Ox 97 10/16/20 11:07 Body Mass Index 29.8 Const: General: cooperative, healthy appearing and no acute distress Resp: Effort & Inspection: normal respiratory effort and able to speak in complete sentences Cardio: Rate: regular rate Peripheral pulses: Peripheral pulses 2+ throughout GI: Palpation (GI): Soft to palpation Skin: Lesions: no lesions Rashes: no rashes Extrem: Other: Right hip incision is clean dry and intact. Andre intact. The incision site is well approximated. A new Aquacel dressing was applied. Patient is able to plantarflex and dorsiflex. NVI. DS: Data Data Completed and Pending Pending studies at discharge: Pending at discharge 10/15/20 08:56 Surgical [PTH] Routine Labs on day of discharge: Laboratory Results - last 24 hr 10/16/20 10/16/20 05:51 05:51 Hgb 11.7 L Hct 34.9 L Sodium 137 Potassium 4.1 Chloride 106 Carbon Dioxide 26 Anion Gap 9 L BUN 9 Creatinine 0.85 Estim Creat Clear Calc 84.5 Estimated GFR > 60 Fasting Glucose 135 H Calcium 9.0 D Discharge Plan Discharge Patient Disposition: Home Health Service Discharge Diagnosis: total right hip replacement Referrals: Petar Mccray PA-C [Physician Fuel Buyer] - 1 Week (10/23/20 at 1:30pm) Discharge Medications: New celecoxib 200 mg Capsule 200 mg PO BID 30 Days Qty: 60 RF: 0 acetaminophen 325 mg Tablet 650 mg PO Q6H PRN (Reason: Pain, Mild (Pain Scale 1-3)) 30 Days Qty: 240 RF: 0 docusate sodium 100 mg Capsule 100 mg PO BID 30 Days Qty: 60 RF: 0 oxycodone 5 mg Tablet 5 mg PO Q4H PRN (Reason: Pain, Moderate (Pain Scale 4-6) 7 Days Qty: 42 RF: 0 aspirin 325 mg tablet,delayed release (DR/EC) 325 mg PO BID Qty: 84 RF: 0 Continued hydrocortisone [Proctozone-HC] 2.5 % cream with perineal applicator 1 appl OK BID 14 Days Qty: 30 RF: 1 dexlansoprazole [Dexilant] 60 mg capsule,biphase delayed releas 60 mg PO BEDTIME Qty: 30 RF: 1 oxycodone-acetaminophen [Percocet] 5-325 mg tablet 1 - 2 tab PO Q4-6H PRN (Reason: pain) Qty: 30 RF: 0 docusate sodium [Colace] 100 mg capsule 100 mg PO BID Qty: 60 RF: 2 ibuprofen 600 mg tablet 600 mg PO Q6H PRN (Reason: pain) Qty: 30 RF: 0 sennosides [senna] 8.6 mg tablet 2 tab PO DAILY PRN (Reason: constipation) RF: 0 paroxetine HCl 20 mg tablet 1 tab PO DAILY RF: 0 lisinopril 10 mg tablet 1 tab PO DAILY RF: 0 zolpidem [Ambien] 5 mg tablet 5 mg PO BEDTIME PRN (Reason: Insomnia) RF: 0 tamsulosin [Flomax] 0.4 mg capsule 0.4 mg PO BEDTIME RF: 0 (DME) walker Misc See Rx Instructions .MEDSUPPLY Qty: 1 RF: 0 Linzess 290 mcg capsule 290 mcg PO DAILY 30 Days Qty: 30 RF: 3 Discharge Orders: Discharge Order (Routine); Ordered 10/16/20 Ordered By: Margoth Sadler Diet: regular diet Activity on Discharge: Use cane or walker Stand Alone Forms: Patient Portal Discharge page Care Plan Goals: restore fxn to rt hip Health Concerns: none Plan of Treatment: Physical Therapy for total hip arthroplasty: posterior precautions, gait training, ROM, strength Limit stair climbing No showering, no tub bath-keep dressing clean, dry and intact No driving x6 weeks Continue Aspirin tabs once a day x 6 weeks Follow up with [facility] in 2 weeks Assessment: stable for d/c Discharge Date/Time: 10/16/20 15:59
--- NOTE | 2020-10-16 13:53 | MHC.CM.PN ---
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 PT IS CLEARED TO DC HOME TODAY WITH [facility] FOR PT PTS SON WILL PICK HIM UP JUST BEFORE 1500 HOURS HE HAS A [facility] APPT ON CAMPUS AT THAT TIME.
== END 2020-10-16 15:59 | disposition home health service (06) | DRG 470 ==
LOC: HO.SSSA 06:38 → HO.S3 10:21
PROVIDERS: Physician Assistant; Admitting Provider Orthopaedic Surgery; PCP Internal Medicine; Visit Provider Orthopaedic Surgery
PROC: 0SR903A Replacement of Right Hip Joint with Ceramic Synthetic Substitute, Uncemented, Open Approach (ICD-10-PCS; CPT 27130; principal; 2020-10-15 07:30)
DX: M16.11 Unilateral primary osteoarthritis, right hip (principal); I10 Essential (primary) hypertension; K21.9 Gastro-esophageal reflux disease without esophagitis; K59.00 Constipation, unspecified; N40.0 Benign prostatic hyperplasia without lower urinary tract symptoms; F39 Unspecified mood [affective] disorder; Z20.822 Contact with and (suspected) exposure to COVID-19; Z79.899 Other long term (current) drug therapy
CPT/HCPCS: 36415; 72170; 80048; 85014; 85018; 86850; 86900; 86901; 87635; 87640; 87641; 88304; 88311; 97110; 97116; 97161; 97165; C1776; J0131; J0690; J1170; J3010; Q0163

== ENCOUNTER → 2020-10-30 14:07 | Outpatient (BNVA) | payer MEDICARE, SELFPAY | PROVIDERS: Visit Provider Physician Assistant | DX: Z47.1 Aftercare following joint replacement surgery (principal); Z96.641 Presence of right artificial hip joint | CPT/HCPCS: 99212 ==

== ENCOUNTER → 2020-11-20 15:05 | Outpatient (BNVA) | payer MEDICARE, SELFPAY | PROVIDERS: Visit Provider Orthopaedic Surgery | DX: Z47.1 Aftercare following joint replacement surgery (principal); Z96.641 Presence of right artificial hip joint | CPT/HCPCS: 99212 ==

== ENCOUNTER → 2021-01-26 15:17 | Outpatient (BNVA) | payer MEDICARE, SELFPAY | PROVIDERS: Visit Provider Nurse Practitioner ==

== ENCOUNTER → 2021-05-28 12:51 | Outpatient (BNVA) | payer MEDICARE, SELFPAY | PROVIDERS: PCP Internal Medicine; Referring Provider Internal Medicine; Visit Provider Nurse Practitioner | DX: K59.04 Chronic idiopathic constipation (principal); K21.9 Gastro-esophageal reflux disease without esophagitis; K64.8 Other hemorrhoids; K59.9 Functional intestinal disorder, unspecified; R13.12 Dysphagia, oropharyngeal phase; R10.33 Periumbilical pain; R51.9 Headache, unspecified; M54.2 Cervicalgia | CPT/HCPCS: 99212 ==

== ENCOUNTER 2021-07-09 12:52 | Outpatient (REF) | payer OTHER, SELFPAY ==
[2021-07-09 15:16] LABS: Alanine Aminotransferase 45 U/L (0-40); Albumin Level 4.2 g/dL (3.5-5.0); Alkaline Phosphatase 91 U/L (39-117); Anion Gap 12 (12-20); Aspartate Amino Transferase 25 U/L (5-37); Blood Urea Nitrogen 13 mg/dL (9-16); Calcium 10.5 mg/dL (8.4-10.2); Carbon Dioxide 28 mmol/L (22-29); Chloride 103 mmol/L (96-108); Estimated Glomerular Filt Rate > 60; Glucose Random 103 mg/dL (60-115); Potassium 4.7 mmol/L (3.3-5.1); Sodium 138 mmol/L (135-145); Total Protein 7.2 g/dL (6.5-8.0)
[2021-07-09 15:33] LABS: TSH reflex Free T4 1.42 uIU/mL (0.32-4.0)
== END 2021-07-09 12:53 | disposition home or self-care (01) ==
LOC: HO.LAB 12:52
PROVIDERS: PCP Internal Medicine; Referring Provider Internal Medicine; Visit Provider Nurse Practitioner
DX: R10.33 Periumbilical pain (principal); K59.04 Chronic idiopathic constipation
CPT/HCPCS: 36415; 80053; 84443; 99212

== ENCOUNTER → 2021-08-06 14:24 | Outpatient (BNVA) | payer OTHER, SELFPAY | PROVIDERS: PCP Internal Medicine; Visit Provider Nurse Practitioner | DX: K59.9 Functional intestinal disorder, unspecified (principal); K59.04 Chronic idiopathic constipation; R10.33 Periumbilical pain; R13.12 Dysphagia, oropharyngeal phase | CPT/HCPCS: 99212 ==

== ENCOUNTER 2021-08-14 08:03 | Outpatient (REF) | payer OTHER, SELFPAY ==
--- NOTE | ~2021-08-14 | CT_ITS ---
EXAMINATION: CT ABDOMEN AND PELVIS WITHOUT CONTRAST CLINICAL INFORMATION: Periumbilical pain COMPARISON: Previous CT of the abdomen and pelvis most recent June 2016 TECHNIQUE: Multidetector volumetric imaging was performed from the superior aspect of the liver through the pubic symphysis. Sagittal and coronal reformatted images were obtained on the technologist's workstation. This CT examination was performed using dose optimization techniques as appropriate, variously including the following: *Automated exposure control *Adjustment of mA and/or kV according to patient size (this includes techniques or standardized protocols for targeted exams where dose is matched to indication/reason for exam; i.e. extremities or head) *Use of iterative reconstruction technique DLP: 552 mGy-cm FINDINGS: LUNG BASES: The visualized lung bases are unremarkable. LIVER, GALLBLADDER, AND BILIARY TREE: The liver is normal in size, shape, and attenuation. No focal hepatic lesion or biliary ductal dilatation is present. The gallbladder is unremarkable with no evidence of radiopaque gallstones, gallbladder wall thickening, or obvious pericholecystic inflammatory changes. PANCREAS: Unremarkable. SPLEEN: Unremarkable. ADRENAL GLANDS: Unremarkable. KIDNEYS AND URETERS: The kidneys are normal in size, shape, and attenuation. No hydronephrosis, hydroureter, or calculi seen. No perinephric stranding. BLADDER: Not well visualized due to artifact from bilateral hip replacements. GASTROINTESTINAL TRACT: The small and large bowel are unremarkable. The appendix is unremarkable. ABDOMINAL WALL: Small right inguinal hernia containing fat. LYMPH NODES: Normal. VASCULAR: Unremarkable. PELVIC VISCERA: Not well-visualized due to artifact from bilateral hip replacements. OSSEOUS STRUCTURES: Degenerative changes. CT/CT abdomen pelvis wo con IMPRESSION: Small right inguinal hernia containing fat. Limited evaluation of the pelvis due to artifact from bilateral hip replacements. Fleischner guidelines were followed.
== END 2021-08-14 08:04 | disposition home or self-care (01) ==
LOC: HO.CT 08:03
PROVIDERS: Visit Provider Nurse Practitioner
DX: R10.33 Periumbilical pain (principal)
CPT/HCPCS: 74176

== ENCOUNTER 2021-09-03 13:04 | Day surgery (SDC) | payer OTHER, SELFPAY ==
--- NOTE | 2021-09-02 09:32 | P.CONAN_ITS ---
Documented by User: Yusra Becerril NP 09/02/21 09:36 HPI - Anesthesia Eval Consult details Narrative: 71yo M for Upper Endoscopy PMF Active Problems Active Problems: All Active Problems (Updated 05/28/21 @ 13:50 by SHANIKA Gallardo) Small bowel motility disorder (Acute) Generalized headaches (Acute) Neck pain (Acute) Dysphagia, oropharyngeal phase (Acute) Status post total replacement of right hip (Acute) Chronic idiopathic constipation (Acute) GERD (gastroesophageal reflux disease) (Acute) Hemorrhoids (Acute) Periumbilical abdominal pain (Acute) Hemorrhoids with complication (Acute) Past Medical History Medical History Arthritis COVID-19 vaccine administered GERD (gastroesophageal reflux disease) History of BPH HTN (hypertension) Primary osteoarthritis of right hip Family History Family History Brother Diabetes Blind Family history of problems with anesthesia: No Surgical History Surgical History History of arthroplasty of left hip (11/09/16) History of colonoscopy History of esophagogastroduodenoscopy (EGD) History of hemorrhoidectomy History of prostate surgery (2004) History of pterygium excision Hx of cataract extraction History of Problems with Anesthesia: No Social History Social History Household Members: None Are you a primary acute care certified nursing assistant to a significant other at home: No Do you presently have visiting nurse or other home services: Yes ([facility]) Alcohol intake: current Alcohol intake frequency: holidays/special occasions only Alcohol type: beer Patient Tobacco Use Status: Never used Tobacco Are you DNR?: No Advance Directives: No Advance Directives Information Provided: Yes Current occupational status: disabled 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 Meds Allergies Allergy/AdvReac Type Severity Reaction Status Date / Time No Known Allergies Allergy Verified 08/06/21 14:29 [No Known Allergies*] Home Medications Medication Instructions Recorded Confirmed Last Taken Type tamsulosin 0.4 mg capsule (Flomax) 0.4 mg PO BEDTIME 12/07/19 09/18/20 Unknown History lisinopril 10 mg tablet 1 tab PO DAILY 09/18/20 09/18/20 Unknown History paroxetine HCl 20 mg tablet 1 tab PO DAILY 09/18/20 09/18/20 Unknown History atorvastatin 40 mg tablet 40 mg PO DAILY 07/09/21 Unknown History zolpidem 10 mg tablet 10 mg PO BEDTIME 07/09/21 Unknown History Exam Exam Date and Time: September 02, 2021 0932 Pertinent Lab Results Pertinent Lab Results: Laboratory Tests 07/09/21 14:24 Sodium 138 Potassium 4.7 Chloride 103 Carbon Dioxide 28 BUN 13 Creatinine 1.13 Assessment and Plan Assessment Anesthesia Assessment: Chart Reviewed Final Anesthetic Review Family History of Problems with Anesthesia: No History of Problems with Anesthesia: No Documented by User: Marco Rodriguez MD 09/03/21 14:11 PMFSH Past Medical History Medical History Arthritis COVID-19 vaccine administered GERD (gastroesophageal reflux disease) History of BPH HTN (hypertension) Primary osteoarthritis of right hip Family History Family History Brother Diabetes Blind Surgical History Surgical History History of arthroplasty of left hip (11/09/16) History of colonoscopy History of esophagogastroduodenoscopy (EGD) History of hemorrhoidectomy History of prostate surgery (2004) History of pterygium excision Hx of cataract extraction Social History Social History Household Members: None Are you a primary acute care certified nursing assistant to a significant other at home: No Do you presently have visiting nurse or other home services: Yes ([facility]) Alcohol intake: current Alcohol intake frequency: holidays/special occasions only Alcohol type: beer Patient Tobacco Use Status: Never used Tobacco Are you DNR?: No Advance Directives: No Advance Directives Information Provided: Yes Current occupational status: disabled 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 Meds Allergies Allergy/AdvReac Type Severity Reaction Status Date / Time No Known Allergies Allergy Verified 08/06/21 14:29 [No Known Allergies*] Home Medications Medication Instructions Recorded Confirmed Last Taken Type tamsulosin 0.4 mg capsule (Flomax) 0.4 mg PO BEDTIME 12/07/19 09/18/20 Unknown History lisinopril 10 mg tablet 1 tab PO DAILY 09/18/20 09/18/20 Unknown History paroxetine HCl 20 mg tablet 1 tab PO DAILY 09/18/20 09/18/20 Unknown History atorvastatin 40 mg tablet 40 mg PO DAILY 07/09/21 Unknown History zolpidem 10 mg tablet 10 mg PO BEDTIME 07/09/21 Unknown History Exam Airway Mallampati Class: II TM Dist: >3cm Neck ROM: Full Denture: Upper and Lower Loose/Missing/Broken Teeth: Yes Assessment and Plan Assessment Anesthesia Assessment: Anesthesia Plan Discussed Final Anesthetic Review NPO: Yes ASA Class: II Final Preanesthetic Review: No Changes in Pt Med Stat, Meds/Allgs Chart Reviewed, Consent Obtained/Reviewed and Anes Risks/Benef Reviewed Patient Risk: Low Procedure Risk: Low Anesthetic Plan Anesthetic Plan: MAC: Disposition: Standard PACU
[2021-09-03 13:16] VITALS: BP 116/66; PULSE 84; RESP 8; TEMP 36.3; O2SAT 99; BMI 29.9
[2021-09-03] MEDS: Lactated Ringers 1,000 ML 100 ML IVCONT (13:30)
--- NOTE | 2021-09-03 13:38 | MHC.SHP ---
Pre-Procedural Eval Section A Date of Service: 09/03/21 Section B Chief Complaint: dysphagia Relevant Family History (Specify if Yes): No Relevant Social History: None Present Medications: see Short Stay Collaborative assessment Medical History: Significant History (Arthritis COVID-19 vaccine administered GERD (gastroesophageal reflux disease) History of BPH HTN (hypertension) Primary osteoarthritis of right hip) History of Previous Operations: Relevant previous surgery/procedure and date(s) (History of arthroplasty of left hip (11/09/16) History of colonoscopy History of esophagogastroduodenoscopy (EGD) History of hemorrhoidectomy History of prostate surgery (2004) History of pterygium excision Hx of cataract extraction) Allergies: Allergies Allergy/AdvReac Type Severity Reaction Status Date / Time No Known Allergies Allergy Verified 08/06/21 14:29 [No Known Allergies*] Review of Systems Sugical H&P ROS: Negative: Constitution, Cardiovascular, Respiratory, Neurological, Psychiatric, Hem-Onc, Allergic/Immunologic, Gastrointestinal, Genitourinary, Musculoskeletal, Integumentary, Endocrine and Eyes/Ears/Nose/Throat Exam Surgical H&P Exam: Normal: HEENT, Normal: Heart, Normal: Lungs, Normal: Extremities, Normal: Abdomen, Normal: Skin and Normal: Neurological Plan Diagnosis/Plan: Unchanged I have reviewed the history and physical and performed a pertinent physical examination on my patient. No changes have occurred unless specified.
--- NOTE | 2021-09-03 13:40 | W.PM.OPN ---
Operative Note Operative Note Date of Service: 09/03/21 Narrative: Procedure Description: EGD Indication: dysphagia Anesthesia: MAC FLEXIBLE TRANSORAL UPPER GASTROINTESTINAL ENDOSCOPY UPPER ENDOSCOPY Consent: Indications for the procedure and potential complications of bleeding, perforation, reaction to medications and missed diagnosis were discussed with the patient and informed consent was obtained. Instrument: Olympus GIF H 190 J mid size upper endoscope Monitoring: Vital signs and clinical assessment, continuous EKG monitoring, Pulse oximetry, Carbon Dioxide monitoring and blood pressure monitoring were done throughout the procedure. Procedure: The patient was placed in the left lateral decubitis position and pre-procedure medications were administered and a bite block was placed. The endoscope was inserted into the mouth and advanced under direct vision to the third part of duodenum. A careful inspection was made as the upper endoscope was withdrawn including a retroflexed examination of the proximal stomach; Findings and interventions are described below. Findings: Larynx:normal Esophagus: GE junction at 40 cm, diaphragm hiatus at 40 cm, bx taken from GEJ, and random esophagus, balloon dilation doen to 19 mm with resistance felt but no tears seen Stomach: Nodular mucosa. Biopsies were obtained. Grade 2 flap valve on retroflexed examination of the cardia. Duodenum: Normal bulb and descending duodenum, bx taken Intervention: Biopsies as noted above, ballon dilation Impression/Findings: esophgeal dilation, PLAN: await bx, if h pylori pos then treat if dysphagia persists then Modified barium swallow and if still neg then manometry/ pH impedance studies
[2021-09-03 14:10] VITALS: BP 117/64; BP 93/57; PULSE 69; PULSE 80; RESP 18; TEMP 37.4; TEMP 37.6; O2SAT 96; O2SAT 97
[2021-09-03 14:25] VITALS: BP 112/62; PULSE 87; RESP 16; O2SAT 98
== END 2021-09-03 14:41 | disposition home or self-care (01) ==
PROVIDERS: PCP Internal Medicine; Visit Provider Internal Medicine Gastroenterology
PROC: 0DJ08ZZ Inspection of Upper Intestinal Tract, Via Natural or Artificial Opening Endoscopic (ICD-10-PCS; CPT 43235; principal; 2021-09-03 12:00)
DX: R13.10 Dysphagia, unspecified (principal); K59.04 Chronic idiopathic constipation; K59.9 Functional intestinal disorder, unspecified; K44.9 Diaphragmatic hernia without obstruction or gangrene; K21.9 Gastro-esophageal reflux disease without esophagitis; F11.20 Opioid dependence, uncomplicated; I10 Essential (primary) hypertension; Z79.899 Other long term (current) drug therapy; Z98.890 Other specified postprocedural states
CPT/HCPCS: 43249; 43239; 88305; 88342; C1726

== ENCOUNTER 2021-09-09 14:06 | Outpatient (REF) | payer OTHER, SELFPAY ==
--- NOTE | ~2021-09-09 | FL_ITS ---
EXAMINATION: XR BARIUM SWALLOW CLINICAL INFORMATION: Dysphagia, oropharyngeal phase. COMPARISON: None TECHNIQUE: Real-time fluoroscopic guidance provided to speech therapy to perform a modified barium swallowing evaluation. Multiple consistencies were evaluated. FINDINGS: No aspiration or penetration seen with any of the consistencies evaluated. FLUOROSCOPY TIME: 1.0 minutes DOSE AREA PRODUCT: 0.546 Gy-cm2 (monique-centimeter squared) FL/FL barium swallow modified IMPRESSION: No aspiration or penetration seen. Please refer to speech therapy report for further details.
--- NOTE | 2021-09-11 16:44 | MHC.SL.IMP ---
Date of Plan of Treatment: 09/11/21 Onset of Symptoms/Illness: 09/11/21 Date Treatment Started: 09/11/21 Admitting Diagnosis: Arthritis COVID19 vaccine administered GERD History of BPH HTN Primary osteoarthritis of right hip History of arthroplasty of left hip (11/09/16) History of colonoscopy History of esophagogastoduodenoscopy (EGD) History of hemorrhoidectomy History of prostate surgery (2004) History of pterygium excision Hx of cataract extraction Primary Speech & Language Diagnosis: R13.12 Oropharyngeal Phase Dysphagia Reason for Today's Visit: 94856 Modified Barium Swallow Study Pre-evaluation Dietary Consistencies: Regular Pre-evaluation Liquid Consistency: Thin Pre-evaluation Medication Administration: Whole with Liquid Medical History: Modified Barium Swallow Study Fluoroscopic Evaluation of Swallowing Function CPT Code 01357 Evaluation Year: 2021 Reason for Study: Patient reports globus sensation. Referring Physician: Pearl Batista NP Evaluating Clinician: Ximena Tom MA, CCC-RECOVERY RN Study Number: 1 Patient Name: Eladio Vega Status: Outpatient Age: 71 Gender: Male MEDICAL HISTORY: Year of Onset or Diagnosis: 2021 Comorbidities: Arthritis COVID19 vaccine administered GERD History of BPH HTN Primary osteoarthritis of right hip History of arthroplasty of left hip (11/09/16) History of colonoscopy History of esophagogastoduodenoscopy (EGD) History of hemorrhoidectomy History of prostate surgery (2004) History of pterygium excision Hx of cataract extraction Current (pre-evaluation) Intake/Diet: Route: PO Diet Grade: Regular Liquid Consistencies: Thin Pre-Study Functional Oral Intake Scale (FOIS): 7- Total oral intake with no restrictions Pain: Unable to assess reported at time of study SUBJECTIVE: Pt is a 71 year old male referred for a modified barium swallow study by Pearl VOSS of [facility]. Pt reports he has had problems swallowing for quite some time. He reports pain and discomfort when swallowing, as well as globus sensation. Pt stated that food feels stuck in his throat when he swallows and he has a hard time getting it down. Additionally pt reported difficulty breathing when laying down. Oral Motor Exam Facial Symmetry: Symmetrical Mouth Occlusion: Normal Oral-Facial Teeth Characteristics: Edentulous Dental Appliance Oral-Facial Lip Pucker Description: Normal Oral-Facial Smile (Lips) Description: Normal Oral-Facial Puff Cheeks Description: Normal Tongue Size: Normal Tongue Excursion Description: Normal Tongue Range of Movement Description: Normal Tongue Speed of Movement Description: Normal Tongue Strength of Movement (against opposing pressure): Normal Tongue Movement Characteristics: Normal/Absent Is patient able to manage secretions?: Yes Food and Liquid Trials: Oral Impairment: Lip Closure: Did not test Oral Impairment: Tongue Control During Bolus Hold: 1=Escape to lateral buccal cavity/floor of mouth (FOM) Oral Impairment: Bolus Preparation/Mastication: 1=Slow prolonged chewing/mashing with complete re-collection Oral Impairment: Bolus Transport/Lingual Motion: 0=Brisk tongue motion Oral Impairment: Oral Residue: 1=Trace residue lining oral structures Oral Impairment:Initiation of Pharyngeal Swallow: 3=Bolus head in pyriforms Pharyngeal Impairment: Soft Palate Elevation: 0=No bolus between soft palate (SP)/pharyngeal wall (PW) Pharyngeal Impairment: Laryngeal Elevation: 0=Complete superior movement of thyroid cartilage (see description) Pharyngeal Impairment: Anterior Hyoid Excursion: 0=Complete anterior movement Pharyngeal Impairment: Epiglottic Movement: 0=Complete inversion Pharyngeal Impairment: Laryngeal Vestibular Closure:: 0=Complete: no air/contrast in laryngeal vestibule Pharyngeal Impairment: Pharyngeal Stripping Wave: 0=Present: complete Pharyngeal Impairment: Pharyngeal Contraction: Did not test Pharyngeal Impairment: Pharyngoesophageal Segment Openin=Complete distension and complete duration: no obstruction of flow Pharyngeal Impairment: Tongue Base (TB) Retraction: 2=Narrow column of contrast/air between TB and posterior PW Pharyngeal Impairment: Pharyngeal Residue: 1=Trace residue within or on pharyngeal structures Pharyngeal Impairment: Esophageal Clearance Upright Position: Did not test Impressions and Recommendations Clinical Observations: OBJECTIVE: Time-out: performed at 02:45 Evaluation Start: 02:30; Stop: 02:40 Patient Positioning: Seated 70-90 degrees Viewing Planes: LATERAL ONLY Contrast: MBSImP? Standardized Protocol using commercially prepared, standardized Barium viscosities, including: Varibar? THIN LIQUID (40% w/v, <15 cps) , 1/2 Shortbread Cookie (1 x1 x.25 ) MBSImP ID: [id number] MBSImP Results: Lip closure for intraoral bolus containment could not be assessed due to logistical reasons not related to physiologic impairment. Tongue control during bolus hold allowed bolus escape to the lateral buccal cavity/floor of mouth. Bolus preparation and mastication resulted in slow, prolonged chewing/mashing but with complete re-collection. Bolus transport/lingual motion was with brisk tongue motion. Oral residue was a trace, lining oral structures. Initiation of the pharyngeal swallow occurred when the bolus head was in the pyriform sinuses. Soft palate elevation resulted in no bolus between the soft palate and the pharyngeal wall. Laryngeal elevation demonstrated complete superior movement of the thyroid cartilage with complete approximation of the arytenoids to the epiglottic petiole. Anterior hyoid excursion demonstrated complete anterior movement. Epiglottic movement resulted in complete inversion. Laryngeal vestibular closure was complete, as indicated by no air or contrast within the laryngeal vestibule at the height of the swallow. Pharyngeal stripping wave was present and complete. Pharyngeal contraction could not be determined due to logistical reasons not related to physiologic impairment. Pharyngoesophageal segment opening was completely distended for complete duration with no obstruction of bolus flow. Tongue base retraction allowed a narrow column of contrast or air between the retracted tongue base and the posterior pharyngeal wall. Pharyngeal residue was a trace within or on pharyngeal structures. Esophageal clearance in the upright position could not be assessed due to logistical reasons not related to physiologic impairment. Oral Impairment Score: 5 (absence of score, component 1) Pharyngeal Impairment Score: 2 (absence of score, component 13) Esophageal Impairment Score: --- (absence of score, component 17) Laryngeal Penetration and Aspiration: Neither penetration nor aspiration was observed in today's study with Cookie, Thin. ASSESSMENT: Clinician Assessment: This exam was conducted by a multidisciplinary team, which included a speech pathologist, radiologist, and echocardiography radiology technologist. Pt was seated upright at 90 degrees for lateral view only. Pt trialed the following liquid and solid consistencies: thin liquid barium by cup, pureed solid (mixture applesauce with barium paste), ground solid (mixture chicken salad with barium paste), regular solid (Shona Doone cookie coated with barium paste). Oral phase was mildly prolonged. There was escape of liquid to the floor of mouth, but no premature posterior escape. Mastication was mildly slow and prolonged, trace oral residue cleared with subsequent swallow. Posterior lingual movement for transport of bolus was brisk, WFL. Pharyngeal swallow trigger was significantly delayed, initiated as bolus head reached pyriform sinuses. There was no nasopharyngeal reflux. Complete laryngeal elevation with complete anterior hyoid excursion and complete epiglottic inversion. There was one instance of epiglottic coating with chain sips of thin liquid, but no evidence of tracheal aspiration or penetration with solids and liquids. Trace residue w/ liquids in the valleculae and pyriform sinuses and trace residue with bites of solids on posterior pharyngeal wall. Pharyngeal residue completely cleared with subsequent swallow. There was no obstruction of flow through pharyngoesophageal segment opening. Liquid Intake Recommendation: Thin Liquid Intake Strategies: Small Sips Dietary Recommendations: Regular Medication Administration: Whole with Liquid Please contact the pharmacy regarding appropriate crushable or liquid drug formulations that are available whenever modified delivery is recommended. Compensatory Strategies Recommended: Sitting Upright (90 deg) Double Swallow Small Bites and Sips Alternate Liquids/Solids Rate of Ingestion Change Supervision during eating and or drinking: None Needed Recommendation for Speech Therapy: NA:Typical Evaluation Text Comment: PLAN: Intake Recommendations: Route: PO Diet Grade: Regular Liquid Consistencies: Thin Post-Study Functional Oral Intake Scale (FOIS): 7- Total oral intake with no restrictions There was no evidence of aspiration or penetration during this exam. Trace oral and pharyngeal residue cleared with subsequent swallow. Recommend pt to continue with unmodified diet- regular solids with thin liquids. Recommend pt continue workup w/ G.I. specialist. Pt may benefit from consult with package checker if indicated given his complaints of difficulty breathing when laying down. Suggested Referrals: The patient might benefit from a referral to: -Gastroenterology Indication for Referral: ongoing care Therapy Recommendations: Therapy will be discontinued Prognosis for Improvement: The prognosis for the patient to meet nutritional needs by mouth is good based on degree of impairment. Clinician - Supplemental, Miscellaneous Communication: It is important to note MBSS objective studies are snapshots in time and Patient function might vary with factors such as time of day or concomitant medical conditions. For this reason, the final treatment plan for this patient should rest with their medical care team. Additional recommendations should be considered with the totality of the Patient in mind. Thank for the opportunity to participate in the care of this patient. If you have any questions about the content of this report, please contact the [facility] at [facility]. Education: Education regarding findings from today's study and plans for therapy were provided to Patient only through Verbal Instruction. Understanding was expressed by the Patient only. Builder Operator Clinician/Clinical Fellow: No Supervisory Statement: N/A Speech Language Pathologist: Ximena Tom M.A., [facility] RN
== END 2021-09-09 14:07 | disposition home or self-care (01) ==
LOC: HO.XRAY 14:06
PROVIDERS: Visit Provider Nurse Practitioner
DX: R13.12 Dysphagia, oropharyngeal phase (principal)
CPT/HCPCS: 74230; 92611

== ENCOUNTER → 2021-09-16 10:48 | Outpatient (BNVA) | payer OTHER, SELFPAY | PROVIDERS: PCP Internal Medicine; Visit Provider Nurse Practitioner | DX: R13.12 Dysphagia, oropharyngeal phase (principal); K59.9 Functional intestinal disorder, unspecified; K59.04 Chronic idiopathic constipation; K64.9 Unspecified hemorrhoids; K21.9 Gastro-esophageal reflux disease without esophagitis; Z79.899 Other long term (current) drug therapy; Z98.890 Other specified postprocedural states | CPT/HCPCS: 99212 ==

== ENCOUNTER → 2021-10-09 16:17 | Outpatient (BNVA) | payer OTHER, SELFPAY | PROVIDERS: PCP Internal Medicine; Visit Provider Nurse Practitioner | DX: K59.03 Drug induced constipation (principal); T40.2X5A Adverse effect of other opioids, initial encounter; K59.04 Chronic idiopathic constipation; K59.9 Functional intestinal disorder, unspecified; R13.12 Dysphagia, oropharyngeal phase; K21.9 Gastro-esophageal reflux disease without esophagitis | CPT/HCPCS: 99212 ==

== ENCOUNTER → 2021-10-23 15:59 | Outpatient (BNVA) | payer OTHER, SELFPAY | PROVIDERS: PCP Internal Medicine; Visit Provider Nurse Practitioner | DX: Z01.818 Encounter for other preprocedural examination (principal); K59.03 Drug induced constipation; T40.2X5A Adverse effect of other opioids, initial encounter; K59.04 Chronic idiopathic constipation; K21.9 Gastro-esophageal reflux disease without esophagitis; K64.8 Other hemorrhoids | CPT/HCPCS: 99212 ==

== ENCOUNTER 2021-10-30 22:55 | Emergency (ER) | payer OTHER, SELFPAY ==
--- NOTE | ~2021-10-30 | CT_ITS ---
EXAMINATION: CT HEAD WITHOUT CONTRAST CLINICAL INFORMATION: EtOH, fall COMPARISON: None TECHNIQUE: Contiguous axial imaging was performed from the skull base to vertex without intravenous administration of contrast. This CT examination was performed using dose optimization techniques as appropriate, variously including the following: *Automated exposure control *Adjustment of mA and/or kV according to patient size (this includes techniques or standardized protocols for targeted exams where dose is matched to indication/reason for exam; i.e. extremities or head) *Use of iterative reconstruction technique DLP: 784 mGy-cm FINDINGS: There is no evidence of acute intracranial hemorrhage or territorial infarction. No abnormal mass-effect or midline shift is seen. Alexandre to white matter differentiation is well preserved. No extra-axial fluid collections are identified. The ventricles are normal in size. There is no abnormal attenuation within the brain parenchyma. The osseous structures and soft tissues are normal. The mastoid air cells and visualized portions of the paranasal sinuses are well-aerated. CT/CT head/brain wo IV con IMPRESSION: No acute intracranial pathology.
[2021-10-30 23:11] VITALS: BP 136/76; PULSE 50; O2SAT 95; BMI 30.7
--- NOTE | 2021-10-30 23:20 | ED_ITS ---
HPI - Alcohol General Chief Complaint: ETOH/Substance Use Stated Complaint: weakness/etoh Time Seen by Provider: 10/30/21 23:06 Source: patient and EMS Mode of arrival: EMS Limitations: no limitations History of Present Illness HPI narrative: Patient comes to emergency room complaining of alcohol intoxication. Patient was drinking beer with neighbors. It is unclear why I am the neighbors called EMS. Per EMS report, seems that there was no incidence or falls, seems that the patient was more drunk than everybody else and therefore EMS was called. Patient arrival admits that he drank plenty of beer, denies any injuries, has been awake and alert a whole time, not on blood thinners. Related Data Home Medications Medication Instructions Recorded Confirmed tamsulosin 0.4 mg capsule (Flomax) 0.4 mg PO BEDTIME 12/07/19 09/18/20 lisinopril 10 mg tablet 1 tab PO DAILY 09/18/20 09/18/20 paroxetine HCl 20 mg tablet 1 tab PO DAILY 09/18/20 09/18/20 atorvastatin 40 mg tablet 40 mg PO DAILY 07/09/21 zolpidem 10 mg tablet 10 mg PO BEDTIME 07/09/21 celecoxib 200 mg capsule 200 mg PO BID 10/09/21 Previous Rx's Medication Instructions Recorded walker #1 ea 12/07/19 ibuprofen 600 mg tablet 600 mg PO Q6H PRN pain #30 tabs 08/12/20 oxycodone-acetaminophen 5 mg-325 1 - 2 tab PO Q4-6H PRN pain #30 08/12/20 mg tablet (Percocet) tabs hydrocortisone 2.5 % topical cream 1 appl AR BID 14 days #30 grams 09/03/20 with perineal applicator (Proctozone-HC) docusate sodium 100 mg capsule 100 mg PO BID 30 days #60 caps 10/16/20 bisacodyl 5 mg tablet,delayed 15 mg PO BEDTIME 30 days #90 tabs 05/14/21 release (Dulcolax (bisacodyl)) dexlansoprazole 60 mg 60 mg PO BEDTIME #30 caps 05/14/21 capsule,biphase delayed release (Dexilant) linaclotide 290 mcg capsule 290 mcg PO DAILY #30 caps 05/14/21 (Linzess) metoclopramide HCl 10 mg tablet 10 mg PO QIDACHS #120 tabs 09/16/21 (Reglan) naloxegol 25 mg tablet (Movantik) 25 mg PO QAM #30 tabs 10/09/21 peg 3350-electrolytes 236 240 ml PO Q10M 1 day #4,000 mL 10/23/21 gram-22.74 gram-6.74 gram-5.86 gram solution (Golytely) Allergies Allergy/AdvReac Type Severity Reaction Status Date / Time No Known Allergies Allergy Verified 10/23/21 16:24 [No Known Allergies*] Review of Systems Review of Systems: Constitutional : No Weight loss, No Fever, No Chills, No Night Sweats, No Fatigue, No Malaise ENT/Mouth : No Hearing loss, No Ear Pain, No Nasal Congestion, No Sinus Pain, No Hoarseness, No sore throat, No Rhinorrhea, No Swallowing Difficulty Eyes: No Eye Pain, No Swelling, No Redness, No Foreign Body, No Discharge, No Vision Changes Cardiovascular : No Chest Pain, No SOB, No Dyspnea on Exertion, No Orthopnea, No Edema, No Palpitations Respiratory : No Cough, No Sputum, No Wheezing, No Smoke Exposure, No Dyspnea Gastrointestinal : No Nausea, No Vomiting, No Diarrhea, No Constipation, No abdominal Pain, No Hematochezia, No Melena Genitourinary : no irregular bleeding, No Dysuria, No Urinary Frequency, No Hematuria, No Urinary Incontinence, No Urgency, No Flank Pain, No Urinary Flow Changes, No Hesitancy Musculoskeletal : No joint pain, No Myalgias, No Joint Swelling Skin : No Skin Lesions, No rash Neuro : No Weakness, No Numbness, No Paresthesias, No Loss of Consciousness, No Dizziness, No Headache Psych : No Anxiety/Panic, No Depression, No SI/HI/AH/VH, No Social Issues, admits to heavy alcohol use today Heme/Lymph: No Bruising, No Bleeding,No Lymphadenopathy Endocrine : No Polyuria, No Polydipsia, No Temperature Intolerance [facility] Past Medical History Medical History Arthritis COVID-19 vaccine administered GERD (gastroesophageal reflux disease) Hemorrhoids with complication History of BPH HTN (hypertension) Primary osteoarthritis of right hip Surgical History History of arthroplasty of left hip (11/09/16) History of colonoscopy History of esophagogastroduodenoscopy (EGD) History of hemorrhoidectomy History of prostate surgery (2004) History of pterygium excision Hx of cataract extraction Family History Family History Brother Diabetes Blind Social History Social History Household Members: None Are you a primary skin care specialist to a significant other at home: No Do you presently have visiting nurse or other home services: Yes ([facility]) Alcohol intake: current Alcohol intake frequency: holidays/special occasions only Alcohol type: beer Patient Tobacco Use Status: Never used Tobacco Advance Directives: No Advance Directives Information Provided: No Current occupational status: disabled 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 Physical Exam ED Vital Signs: Vital Signs - 24 hr 10/31/21 00:00 10/31/21 01:38 Temperature 97.7 F Pulse Rate 69 69 Respiratory Rate 14 Blood Pressure 76/34 L 91/53 L Pulse Oximetry 95 Oxygen Delivery Method Room Air BMI result Body Mass Index 30.7 Const Other: Appearance: Alert. Oriented X3. No acute distress. Intoxicated but making sense Eyes: Pupils equal, round and reactive to light. ENT: Pharynx normal. Neck: Normal inspection. Neck supple. No lymph nodes noted. No crepitus CVS: Normal heart rate and rhythm. Pulses normal. Normal S1 and S2 Respiratory: No respiratory distress. Breath sounds normal. No Wheezing. No rales Abdomen: Soft and nontender. No rigidity. No distention. Skin: Skin warm and dry. Normal skin color. Normal skin turgor. Extremities: No lower extremity edema. No Lacerations. No Rash Neuro: Oriented X 3. No motor deficit. No sensory deficit. Moving all extremities. No slurred speech. CN 2 through 12 grossly intact Psych: calm, cooperative, normal affect Course Course Course Narrative: Patient is intoxicated, but alert and oriented x4. Patient denies suicidal homicidal ideation. Patient states that he would like that his son takes him home who is waiting for him in the waiting room. We called his son to pick him up. Patient started walking with his son and he lowered himself to the ground, states he feels too drunk to walk. Were going to keep him a bit longer here. It was a witnessed fall, did not his head, did not lose consciousness. Head CT is negative. Patient is somnolent, easily arousable, alert and oriented x4, normal pupils. Patient's son is at bedside, states that he is unable to take his father because he cannot get him out of the car. Patient's son will be available to pick him up in the morning. At this time, patient agrees with plan, he was in the morning until he bob up. Denies suicidal or homicidal ideation. Patient's son requesting that if his father starts acting up in the morning, requesting to leave, to give the patient's son a call. So far, patient has no intentions of leaving, patient is calm, cooperative Physician observation started at 00:15 01:00, I was informed by the patient's nurse that his blood pressure is in the low 80s. Patient states that he feels well, has no chest pain shortness of breath, headache or dizziness. Patient is being given 1 L of normal saline. 01:48 blood pressure improved to 91/53, 0.5 L of normal saline still pending. Patient will likely need a 2 L. Patient remains awake, alert and oriented x4, states he feels well. All of patient's labs are pending. Sign-out given to Dr. Hung [facility] - Alcohol Imaging Data CT scan - head: Radiologist's impression: FINDINGS: There is no evidence of acute intracranial hemorrhage or territorial infarction. No abnormal mass-effect or midline shift is seen. Alexandre to white matter differentiation is well preserved. No extra-axial fluid collections are identified. The ventricles are normal in size. There is no abnormal attenuation within the brain parenchyma. The osseous structures and soft tissues are normal. The mastoid air cells and visualized portions of the paranasal sinuses are well-aerated. ? CT/CT head/brain wo IV con IMPRESSION: No acute intracranial pathology. Discharge Plan Discharge Clinical Impression: Alcohol intoxication Patient Disposition: Still a Patient Instructions: Alcohol Intoxication (ED) Additional Instructions: Please follow-up with your primary care physician tomorrow. If you have any worsening or new symptoms, please return to the emergency room or call 911 Prescriptions: No Action hydrocortisone [Proctozone-HC] 2.5 % cream with perineal applicator 1 appl AR BID 14 Days Qty: 30 1RF Dexilant 60 mg capsule,biphase delayed releas 60 mg PO BEDTIME Qty: 30 6RF Linzess 290 mcg capsule 290 mcg PO DAILY Qty: 30 6RF bisacodyl [Dulcolax (bisacodyl)] 5 mg tablet,delayed release (DR/EC) 15 mg PO BEDTIME 30 Days Qty: 90 6RF Rx Instructions: Please take this qhs and the Linzess qam as his CIC is severe oxycodone-acetaminophen [Percocet] 5-325 mg tablet 1 - 2 tab PO Q4-6H PRN (Reason: pain) Qty: 30 0RF ibuprofen 600 mg tablet 600 mg PO Q6H PRN (Reason: pain) Qty: 30 0RF paroxetine HCl 20 mg tablet 1 tab PO DAILY lisinopril 10 mg tablet 1 tab PO DAILY docusate sodium 100 mg Capsule 100 mg PO BID 30 Days Qty: 60 0RF tamsulosin [Flomax] 0.4 mg capsule 0.4 mg PO BEDTIME (DME) walker Misc See Rx Instructions .MEDSUPPLY Qty: 1 0RF Rx Instructions: Folding Front wheeled walker peg 3350-electrolytes [Golytely] 236-22.74-6.74 -5.86 gram recon soln 240 ml PO Q10M 1 Days Qty: 4000 0RF Rx Instructions: until fecal effluent is clear; do not exceed a total volume of 2,000 mL zolpidem 10 mg tablet 10 mg PO BEDTIME atorvastatin 40 mg tablet 40 mg PO DAILY metoclopramide HCl [Reglan] 10 mg tablet 10 mg PO QIDACHS Qty: 120 6RF celecoxib 200 mg capsule 200 mg PO BID Movantik 25 mg tablet 25 mg PO QAM Qty: 30 6RF Rx Instructions: must be taken on empty stomach; no food 1 hr after or 2-3 hrs before dose
[2021-10-31] VITALS: BP 76/34; PULSE 69; RESP 14; TEMP 36.5; O2SAT 95
[2021-10-31 01:38] VITALS: BP 91/53; PULSE 69
[2021-10-31] MEDS: 0.9 % Sodium Chloride 1,000 ML 999 ML IVCONT (01:38)
--- NOTE | 2021-10-31 01:56 | ECG_ITS ---
Test Reason : FALL Blood Pressure : / mmHG Vent. Rate : 066 BPM Atrial Rate : 066 BPM P-R Int : 182 ms QRS Dur : 084 ms QT Int : 398 ms P-R-T Axes : 068 007 020 degrees QTc Int : 417 ms Normal sinus rhythm Normal ECG When compared with ECG of 19-AUG-2020 11:06, Aberrant conduction is no longer Present Referred By: Jacque Dominguez Electronically Signed By:ZARA RODRÍGUEZ
[2021-10-31 04:11] LABS: MANUAL DIFF FLAG NO
[2021-10-31 04:12] LABS: Basophils Percent Auto 0.3 % (0-2); Eosinophils Percent Auto 0.4 % (0-4); Hematocrit 37.9 % (42.0-52.0); Hemoglobin 13.1 g/dl (14.0-18.0); Imm Gran Abs Auto 0.03 X10*3/uL (0.00-0.03); Imm Gran Pct Auto 0.4 % (0.0-0.4); Lymphocytes Absolute Auto 1.4 X10*3/uL (1.2-4.9); Lymphocytes Percent Auto 18.6 % (20-40); Mean Corpuscular HGB Conc 34.6 g/dl (31.0-36.0); Mean Corpuscular Hemoglobin 31.1 pg (27.0-33.0); Mean Platelet Volume 9.4 fL (9.4-12.4); Monocytes Absolute Auto 0.4 X10*3/uL (0.1-1.2); Neutrophils Absolute Auto 5.5 x10*3/uL (2.0-8.3); Neutrophils Percent Auto 75.3 % (45-73); Platelet Count 190 X10*3/uL (160-400); Red Blood Count 4.21 X10*6/uL (4.60-5.80); Red Cell Distribution Width 13.9 % (11.0-16.0); White Blood Count 7.3 X10*3/uL (4.8-10.8)
[2021-10-31 04:28] LABS: COVID-19 Test Negative (Negative)
[2021-10-31 04:31] LABS: Troponin-I High Sensitivity 17.5 ng/L (<3.5-35.0)
[2021-10-31 04:33] LABS: Alanine Aminotransferase 35 U/L (0-40); Albumin Level 3.9 g/dL (3.5-5.0); Alkaline Phosphatase 70 U/L (39-117); Anion Gap 16 (12-20); Aspartate Amino Transferase 19 U/L (5-37); Bilirubin Direct 0.2 mg/dL (0.0-0.5); Bilirubin Total 0.5 mg/dL (0.0-1.0); Blood Urea Nitrogen 24 mg/dL (9-16); Calcium 9.4 mg/dL (8.4-10.2); Carbon Dioxide 21 mmol/L (22-29); Chloride 107 mmol/L (96-108); Creatinine Clr Calc Pharmacy 52.6; Estimated Glomerular Filt Rate 54; Ethanol < 10 mg/dL; Glucose Random 115 mg/dL (60-115); Magnesium 1.9 mg/dL (1.6-2.6); Potassium 4.7 mmol/L (3.3-5.1); Sodium 139 mmol/L (135-145); Total Protein 6.7 g/dL (6.5-8.0)
[2021-10-31 06:52] VITALS: BP 108/61; PULSE 60; RESP 14; O2SAT 96
[2021-10-31 07:17] VITALS: BP 111/60; PULSE 89; RESP 16; TEMP 36.6; O2SAT 98
== END 2021-10-31 07:21 | disposition home or self-care (01) ==
PROVIDERS: Emergency Provider Emergency Medicine
DX: F10.129 Alcohol abuse with intoxication, unspecified (principal); R51.9 Headache, unspecified; Y90.9 Presence of alcohol in blood, level not specified; Z20.822 Contact with and (suspected) exposure to COVID-19; Z79.899 Other long term (current) drug therapy
CPT/HCPCS: 70450; 80048; 80076; 82077; 83735; 84484; 85025; 87635; 93005; 96360; 96361; 99285

== ENCOUNTER → 2021-11-06 15:17 | Outpatient (BNVA) | payer OTHER, SELFPAY | PROVIDERS: PCP Internal Medicine; Visit Provider Nurse Practitioner | DX: K59.03 Drug induced constipation (principal); T40.2X5D Adverse effect of other opioids, subsequent encounter; K59.04 Chronic idiopathic constipation; K59.9 Functional intestinal disorder, unspecified; K21.9 Gastro-esophageal reflux disease without esophagitis; K64.9 Unspecified hemorrhoids; Z12.11 Encounter for screening for malignant neoplasm of colon | CPT/HCPCS: 99212 ==

== ENCOUNTER → 2022-05-13 13:34 | Outpatient (BNVA) | payer OTHER, SELFPAY | PROVIDERS: PCP Internal Medicine; Visit Provider Nurse Practitioner | DX: Z01.818 Encounter for other preprocedural examination (principal); K59.04 Chronic idiopathic constipation; K21.9 Gastro-esophageal reflux disease without esophagitis; K59.9 Functional intestinal disorder, unspecified; D12.6 Benign neoplasm of colon, unspecified | CPT/HCPCS: 99212 ==

== ENCOUNTER → 2022-06-03 15:33 | Outpatient (BNVA) | payer OTHER, SELFPAY | PROVIDERS: PCP Internal Medicine; Visit Provider Nurse Practitioner | DX: Z01.818 Encounter for other preprocedural examination (principal); K59.04 Chronic idiopathic constipation | CPT/HCPCS: 99212 ==

== ENCOUNTER 2022-06-04 14:28 | Outpatient (REF) | payer OTHER, SELFPAY ==
[2022-06-04 14:40] LABS: MANUAL DIFF FLAG NO
[2022-06-04 15:18] LABS: Basophils Percent Auto 0.6 % (0-2); Eosinophils Absolute Auto 0.1 X10*3/uL (0.0-0.4); Eosinophils Percent Auto 2.4 % (0-4); Hematocrit 39.7 % (42.0-52.0); Hemoglobin 13.6 g/dl (14.0-18.0); Imm Gran Abs Auto 0.01 X10*3/uL (0.00-0.03); Imm Gran Pct Auto 0.2 % (0.0-0.4); Lymphocytes Absolute Auto 1.9 X10*3/uL (1.2-4.9); Lymphocytes Percent Auto 38.7 % (20-40); Mean Corpuscular HGB Conc 34.3 g/dl (31.0-36.0); Mean Corpuscular Hemoglobin 31.3 pg (27.0-33.0); Mean Corpuscular Volume 91.5 fL (80.0-98.0); Mean Platelet Volume 9.6 fL (9.4-12.4); Monocytes Absolute Auto 0.4 X10*3/uL (0.1-1.2); Neutrophils Absolute Auto 2.4 x10*3/uL (2.0-8.3); Neutrophils Percent Auto 49.1 % (45-73); Platelet Count 227 X10*3/uL (160-400); Red Blood Count 4.34 X10*6/uL (4.60-5.80); Red Cell Distribution Width 13.8 % (11.0-16.0); White Blood Count 4.9 X10*3/uL (4.8-10.8)
[2022-06-04 15:49] LABS: Alanine Aminotransferase 31 U/L (0-40); Albumin Level 4.1 g/dL (3.5-5.0); Alkaline Phosphatase 72 U/L (39-117); Anion Gap 13 (12-20); Aspartate Amino Transferase 21 U/L (5-37); Bilirubin Total 1.1 mg/dL (0.0-1.0); Blood Urea Nitrogen 22 mg/dL (9-16); Carbon Dioxide 25 mmol/L (22-29); Chloride 110 mmol/L (96-108); Estimated Glomerular Filt Rate > 60; Glucose Random 97 mg/dL (60-115); Potassium 4.7 mmol/L (3.3-5.1); Sodium 143 mmol/L (135-145); Total Protein 6.6 g/dL (6.5-8.0)
[2022-06-04 16:07] LABS: TSH reflex Free T4 1.11 uIU/mL (0.32-4.0)
== END 2022-06-04 14:29 | disposition home or self-care (01) ==
LOC: HO.LAB 14:28
PROVIDERS: PCP Internal Medicine; Visit Provider Nurse Practitioner
DX: Z01.818 Encounter for other preprocedural examination (principal); K59.04 Chronic idiopathic constipation
CPT/HCPCS: 36415; 80053; 84443; 85025

== ENCOUNTER 2022-07-21 10:52 | Day surgery (SDC) | payer OTHER, SELFPAY ==
[2022-07-15 15:02] VITALS: BMI 29.8
--- NOTE | 2022-07-21 11:27 | MHC.SHP ---
Pre-Procedural Eval Section A Date of Service: 07/21/22 Section B Chief Complaint: hx of colon polyps Relevant Family History (Specify if Yes): No Relevant Social History: None Present Medications: see Short Stay Collaborative assessment Medical History: Significant History (Arthritis COVID-19 vaccine administered GERD (gastroesophageal reflux disease) History of BPH HTN (hypertension) Primary osteoarthritis of right hip) History of Previous Operations: Relevant previous surgery/procedure and date(s) (History of arthroplasty of left hip (11/09/16) History of colonoscopy History of esophagogastroduodenoscopy (EGD) History of hemorrhoidectomy History of prostate surgery (2004) History of pterygium excision Hx of cataract extraction) Allergies: Allergies Allergy/AdvReac Type Severity Reaction Status Date / Time No Known Allergies Allergy Verified 06/03/22 15:42 [No Known Allergies*] Review of Systems Sugical H&P ROS: Negative: Constitution, Cardiovascular, Respiratory, Neurological, Psychiatric, Hem-Onc, Allergic/Immunologic, Gastrointestinal, Genitourinary, Musculoskeletal, Integumentary, Endocrine and Eyes/Ears/Nose/Throat Exam Surgical H&P Exam: Normal: HEENT, Normal: Heart, Normal: Lungs, Normal: Extremities, Normal: Abdomen, Normal: Skin and Normal: Neurological Plan Diagnosis/Plan: Unchanged I have reviewed the history and physical and performed a pertinent physical examination on my patient. No changes have occurred unless specified. Time Spent With Patient Time: Total time managing care of this patient today ____ minutes.
--- NOTE | 2022-07-21 11:29 | P.OP_ITS ---
Operative Note Operative Note Date of Service: 07/21/22 Narrative: Operative Information Procedure Description: Colonoscopy Indication: hx of polyps Anesthesia: MAC COLONOSCOPY Instrument: Olympus variable stiffness ADULT scope 190L Colonoscopy Monitoring: Vital signs and clinical assessment, continuous EKG monitoring, Pulse oximetry, Carbon Dioxide monitoring and blood pressure monitoring were done throughout the procedure. Colon withdrawal time was 8 minutes. Procedure: The patient was placed in the left lateral decubitis position and pre-procedure medications were administered. After a digital rectal examination of the ano-rectum, the video colonoscope was inserted into the rectum and advanced through the colon to the cecum/TI. The colonoscope was slowly withdrawn in a retrograde panoramic fashion and the colon mucosa was carefully examined including a retroflexed view of the rectum. Findings and interventions are described below. Procedure Difficulty: easy Findings: Terminal Ileum-normal Cecum:normal Ascending Colon: normal Transverse Colon -normal Descending Colon: 10 mm sessile polyp removed with cold snare Sigmoid Colon: 4-6 mm sessile polyp removed with cold forceps Rectum: Retroflexion with small internal hemorrhoids, grade I Anorectum - normal Colon preparation: [place] Bowel Preparation Scale Right colon; 1-2 Transverse colon: 1-2 Left colon; 2 (0 = Unprepared colon segment with mucosa not seen due to solid stool that cannot be cleared. 1 = Portion of mucosa of the colon segment seen, but other areas of the colon segment not well seen due to staining, residual stool and/or opaque liquid. 2 = Minor amount of residual staining, small fragments of stool and/or opaque liquid, but mucosa of colon segment seen well. 3 = Entire mucosa of colon segment seen well with no residual staining, small fragments of stool or opaque liquid) Impression and Post Procedure Diagnosis: polyps internal hemorrhoids Plan: High fiber diet leaflet Avoid straining at stool, epsom salts and sitz bath, anusol supps or cream Repeat Colonoscopy in 2-3 years due to fair prep on right side or earlier if clinically indicated Above findings were reviewed with the patient and relevant handouts were provided if indicated.
--- NOTE | 2022-07-21 11:38 | P.CONAN_ITS ---
[facility] Active Problems Active Problems: All Active Problems (Updated 05/19/22 @ 08:38 by SHANIKA Gallardo) Chronic idiopathic constipation (Acute) GERD (gastroesophageal reflux disease) (Acute) Hemorrhoids (Acute) Periumbilical abdominal pain (Acute) Status post total replacement of right hip (Acute) Dysphagia, oropharyngeal phase (Acute) Neck pain (Acute) Generalized headaches (Acute) Small bowel motility disorder (Acute) Therapeutic opioid induced constipation (Acute) Pre-op examination (Acute) Tubular adenoma of colon (Acute) Hemorrhoids with complication (Acute) Past Medical History Medical History Arthritis COVID-19 vaccine administered GERD (gastroesophageal reflux disease) Hemorrhoids with complication History of BPH HTN (hypertension) Primary osteoarthritis of right hip Family History Family History Brother Diabetes Blind Family history of problems with anesthesia: No Surgical History Surgical History (Updated 07/15/22 @ 14:59 by Clara Johns RN) History of arthroplasty of left hip (11/09/16) History of colonoscopy History of esophagogastroduodenoscopy (EGD) History of hemorrhoidectomy History of prostate surgery (2004) History of pterygium excision History of total right hip arthroplasty Hx of cataract extraction History of Problems with Anesthesia: No Social History Social History Household Members: None Are you a primary aged or disabled care worker to a significant other at home: No Do you presently have visiting nurse or other home services: Yes ([facility]) Alcohol intake: current Alcohol intake frequency: holidays/special occasions only Alcohol type: beer Patient Tobacco Use Status: Never used Tobacco Advance Directives: No Advance Directives Information Provided: Yes Current occupational status: disabled 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 Meds Allergies Allergy/AdvReac Type Severity Reaction Status Date / Time No Known Allergies Allergy Verified 06/03/22 15:42 [No Known Allergies*] Home Medications Medication Instructions Recorded Confirmed Last Taken Type tamsulosin 0.4 mg capsule (Flomax) 0.4 mg PO BEDTIME 12/07/19 07/15/22 Unknown History lisinopril 10 mg tablet 1 tab PO DAILY 09/18/20 07/15/22 Unknown History paroxetine HCl 20 mg tablet 1 tab PO DAILY 09/18/20 07/15/22 Unknown History atorvastatin 40 mg tablet 40 mg PO DAILY 07/09/21 07/15/22 Unknown History zolpidem 10 mg tablet 10 mg PO BEDTIME 07/09/21 07/15/22 Unknown History celecoxib 200 mg capsule 200 mg PO BID 10/09/21 07/15/22 Unknown History alfuzosin 10 mg tablet,extended 10 mg PO BEDTIME 05/13/22 07/15/22 Unknown History release 24 hr tolterodine 4 mg capsule,extended 4 mg PO QAM 05/13/22 07/15/22 Unknown History release 24 hr Exam Exam Date and Time: July 21, 2022 1138 Height,Weight and Vital Signs: Height 5 ft 5 in Weight 81.193 kg Airway Mallampati Class: III TM Dist: >3cm Neck ROM: Full Denture: Upper and Lower Assessment and Plan Assessment Anesthesia Assessment: Anesthesia Plan Discussed and Chart Reviewed Final Anesthetic Review Family History of Problems with Anesthesia: No History of Problems with Anesthesia: No NPO: Yes ASA Class: II Final Preanesthetic Review: No Changes in Pt Med Stat, Meds/Allgs Chart Reviewed, Consent Obtained/Reviewed and Anes Risks/Benef Reviewed Patient Risk: Low Procedure Risk: Low Anesthetic Plan Anesthetic Plan: MAC: Disposition: Standard PACU
[2022-07-21 12:15] VITALS: BP 91/56; PULSE 76; RESP 16; TEMP 36.1; O2SAT 94
[2022-07-21 12:30] VITALS: BP 125/76; PULSE 70; RESP 17; TEMP 36.9; O2SAT 99
== END 2022-07-21 13:33 | disposition home or self-care (01) ==
PROVIDERS: PCP Internal Medicine; Visit Provider Internal Medicine Gastroenterology
PROC: 0DJD8ZZ Inspection of Lower Intestinal Tract, Via Natural or Artificial Opening Endoscopic (ICD-10-PCS; CPT 45378; principal; 2022-07-21 12:50)
DX: Z12.11 Encounter for screening for malignant neoplasm of colon (principal); Z86.010 Personal history of colon polyps; D12.4 Benign neoplasm of descending colon; K63.5 Polyp of colon; K64.0 First degree hemorrhoids; K59.04 Chronic idiopathic constipation; K21.9 Gastro-esophageal reflux disease without esophagitis; R10.33 Periumbilical pain; M16.11 Unilateral primary osteoarthritis, right hip; N40.0 Benign prostatic hyperplasia without lower urinary tract symptoms; Z79.899 Other long term (current) drug therapy; Z98.890 Other specified postprocedural states; Z96.641 Presence of right artificial hip joint
CPT/HCPCS: 45385; 45380; 88305

== ENCOUNTER 2022-08-02 18:44 | Emergency (ER) | payer OTHER, SELFPAY ==
--- NOTE | 2022-08-02 19:14 | ED.GENADULT ---
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 ? Patient states that he had a white film covering his tongue for the last 2 months. He states that now he has some discomfort when eating He spoke to his primary doctor and was prescribed nystatin which he has been taking daily for the last 3 weeks without any improvement in his symptoms Patient denies any history of diabetes or HIV. Denies any fevers, chills No other complaints or concerns at this time Related Data Home Medications Medication Instructions Recorded Confirmed tamsulosin 0.4 mg capsule (Flomax) 0.4 mg PO BEDTIME 12/07/19 07/15/22 lisinopril 10 mg tablet 1 tab PO DAILY 09/18/20 07/15/22 paroxetine HCl 20 mg tablet 1 tab PO DAILY 09/18/20 07/15/22 atorvastatin 40 mg tablet 40 mg PO DAILY 07/09/21 07/15/22 zolpidem 10 mg tablet 10 mg PO BEDTIME 07/09/21 07/15/22 celecoxib 200 mg capsule 200 mg PO BID 10/09/21 07/15/22 alfuzosin 10 mg tablet,extended 10 mg PO BEDTIME 05/13/22 07/15/22 release 24 hr tolterodine 4 mg capsule,extended 4 mg PO QAM 05/13/22 07/15/22 release 24 hr Previous Rx's Medication Instructions Recorded walker #1 ea 12/07/19 oxycodone-acetaminophen 5 mg-325 1 - 2 tab PO Q4-6H PRN pain #30 08/12/20 mg tablet (Percocet) tabs dexlansoprazole 60 mg 60 mg PO BEDTIME #30 caps 05/13/22 capsule,biphase delayed release (Dexilant) docusate sodium 100 mg capsule 100 mg PO BID 30 days #60 caps 05/13/22 linaclotide 290 mcg capsule 290 mcg PO DAILY #30 caps 06/03/22 (Linzess) peg 3350-electrolytes 236 240 ml PO Q10M #4,000 mL 07/20/22 gram-22.74 gram-6.74 gram-5.86 gram solution fluconazole 100 mg tablet 100 mg PO DAILY #14 tabs 08/02/22 (Diflucan) melatonin 3 mg/4 mL oral drops 3 mg (4 mL) PO BEDTIME PRN sleep 08/02/22 #60 mL Allergies Allergy/AdvReac Type Severity Reaction Status Date / Time No Known Allergies Allergy Verified 08/02/22 19:14 [No Known Allergies*] Review of Systems Constitutional: Constitutional: Reports difficulty sleeping ENT: Reports odynophagia Comments: Reports white film on tongue Cardiovascular: Cardiovascular: Denies dyspnea Respiratory: Respiratory: Denies cough and Denies dyspnea Gastrointestinal: Gastrointestinal: Reports abdominal pain, Denies nausea, Reports odynophagia and Denies vomiting [facility] Past Medical History Medical History (Updated 08/02/22 @ 22:27 by Harjinder Andrade) Arthritis COVID-19 vaccine administered GERD (gastroesophageal reflux disease) Hemorrhoids with complication History of BPH HTN (hypertension) Primary osteoarthritis of right hip Surgical History (Updated 07/15/22 @ 14:59 by Clara Johns RN) History of arthroplasty of left hip (11/09/16) History of colonoscopy History of esophagogastroduodenoscopy (EGD) History of hemorrhoidectomy History of prostate surgery (2004) History of pterygium excision History of total right hip arthroplasty Hx of cataract extraction Family History Family History Brother Diabetes Blind Social History Social History Household Members: None Are you a primary nonfarm animal caretaker to a significant other at home: No Do you presently have visiting nurse or other home services: Yes ([facility]) Alcohol intake: current Alcohol intake frequency: holidays/special occasions only Alcohol type: beer Patient Tobacco Use Status: Never used Tobacco Advance Directives: No Advance Directives Information Provided: No Current occupational status: disabled 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 Physical Exam ED Vital Signs: Vital Signs - 24 hr 08/02/22 19:15 Temperature 96.8 F Pulse Rate 61 Respiratory Rate 18 Blood Pressure 136/67 Pulse Oximetry 100 Oxygen Delivery Method Room Air BMI result Body Mass Index 31.1 Const General: healthy appearing, comfortable, no acute distress, alert and awake Nutritional Appearance: well nourished Orientation/consciousness: patient oriented x3 HENMT Other: Patient has a thin white film on the tongue. Mildly erythematous oropharynx. Head: Yes normocephalic and Yes atraumatic Eyes Eyelids: Yes eyelids normal Conjunctivae: conjunctivae normal Sclerae: sclerae normal Corneas: corneas normal Pupils: Equal, round and reactive pupils present EOM: EOMs intact bilaterally Resp Effort & Inspection: normal respiratory effort, able to speak in complete sentences, no audible wheezes and not labored Auscultation: clear to auscultation bilaterally GI Inspection: No distended Palpation (GI): Soft to palpation, not firm, nontender, no guarding and not rigid Auscultation: normoactive bowel sounds Skin General skin exam: no rashes or lesions noted and elasticity normal Neuro General: patient oriented x3 Cranial nerves: Yes Equal, round and reactive pupils present and Yes Bilaterally intact EOM present Cognition (Neuro): normal cognition Extrem Other: Moving all extremities well without any obvious deformities Course Course Course Narrative: RME: 72-year-old male with a past medical history of GERD, dysplasia, hemorrhoids, small-bowel motility disorder, presenting to the ED complaining of white tongue x2 mos, epigastric abdominal pain worse after eating, bitter taste in tongue, nausea, and insomnia. Has been using Nystatin x3 weeks w/o relief. Admits to strong family hx of DM, denies personal hx tongue mildly white EKG, labs, UA, A1c ordered Full HPI, ROS and PE to be performed by primary ED provider. Medications Administered Discontinued Medications Generic Name Dose Route Start Last Admin Trade Name Drewq PRN Reason Stop Dose Admin Al Hydroxide/Mg Hydroxide 30 ml 08/02/22 22:11 08/02/22 22:15 Magnesium Hydrox/Alum Hydrox 30 Ml Oral.Susp PO 08/02/22 22:12 30 ml ONCE ONE Administration Fluconazole 200 mg 08/02/22 22:15 08/02/22 22:15 Fluconazole 100 Mg Tablet PO 08/02/22 22:16 200 mg ONCE ONE Administration Lidocaine HCl 15 ml 08/02/22 22:11 08/02/22 22:15 Lidocaine Hcl Viscous 2 % 15 Ml Solution MUCOUS MEM 08/02/22 22:12 15 ml ONCE ONE Administration Medical Decision Making Medical Decision Making MDM Narrative: Patient's physical exam is consistent with thrush. He has been using nystatin without improvement. We will prescribe fluconazole daily for 2 weeks. His QT see is 390. He was given a dose here lose scribed 100 mg daily times 14 days. The patient will follow up with his PCP labs are without significant abnormalities when compared to his baseline. He does have a mild anemia. Patient also complaining of difficulty sleeping. He will be prescribed melatonin but he is driving home so he will not be given high dose prior to discharge Differential Diagnosis Thrush Oral candidiasis GERD Insomnia Lab Data MDM Lab Attestation statement: I reviewed the patient's lab results. 08/02/22 19:32 08/02/22 19:32 Labs: Lab Results 08/02/22 08/02/22 08/02/22 Range/Units 19:32 19:32 21:54 WBC 6.0 (4.8-10.8) X10*3/uL RBC 4.07 L (4.60-5.80) X10*6/uL Hgb 12.8 L (14.0-18.0) g/dl Hct 37.4 L (42.0-52.0) % MCV 91.9 (80.0-98.0) fL MCH 31.4 (27.0-33.0) pg MCHC 34.2 (31.0-36.0) g/dl RDW 13.5 (11.0-16.0) % Plt Count 218 (160-400) X10*3/uL MPV 9.4 (9.4-12.4) fL Immature Gran % (Auto) 0.7 H (0.0-0.4) % Neut % (Auto) 43.0 L (45-73) % Lymph % (Auto) 43.2 H (20-40) % [place] % (Auto) 9.4 (2-11) % Eos % (Auto) 3.2 (0-4) % Baso % (Auto) 0.5 (0-2) % Lymph # (Auto) 2.6 (1.2-4.9) X10*3/uL [place] # (Auto) 0.6 (0.1-1.2) X10*3/uL Eos # (Auto) 0.2 (0.0-0.4) X10*3/uL Baso # (Auto) 0.0 (0.0-0.2) X10*3/uL Abs Immat Gran (auto) 0.04 H (0.00-0.03) X10*3/uL Absolute Neuts (auto) 2.6 (2.0-8.3) x10*3/uL Absolute Nucleated RBC 0.000 (0.0-0.012) X10*3/uL Nucleated RBC % (auto) 0.0 (0.0-0.2) /100WBC Sodium 141 (135-145) mmol/L Potassium 4.1 (3.3-5.1) mmol/L Chloride 109 H (96-108) mmol/L Carbon Dioxide 26 (22-29) mmol/L Anion Gap 10 L (12-20) BUN 20 H (9-16) mg/dL Creatinine 1.01 (0.5-1.4) mg/dL Estim Creat Clear Calc 70.4 Estimated GFR > 60 Random Glucose 83 (60-115) mg/dL Calcium 10.0 (8.4-10.2) mg/dL Magnesium 2.1 (1.6-2.6) mg/dL Total Bilirubin 0.4 (0.0-1.0) mg/dL Direct Bilirubin 0.1 (0.0-0.5) mg/dL AST 28 (5-37) U/L ALT 49 H (0-40) U/L Alkaline Phosphatase 75 (39-117) U/L Total Protein 6.8 (6.5-8.0) g/dL Albumin 4.0 (3.5-5.0) g/dL Lipase 48 (8-78) U/L Urine Color Yellow Urine Appearance Clear Urine pH 5.5 (5.0-9.0) Ur Specific [place] 1.010 (1.005-1.025) Urine Protein Negative (Neg-Trace) mg/dL Urine Glucose (UA) Negative (Negative) mg/dL Urine Ketones Negative (Negative) mg/dL Urine Blood Negative (Negative) Urine Nitrite Negative (Negative) Ur Leukocyte Esterase Negative (Negative) Discharge Plan Discharge Clinical Impression: Candidiasis of mouth, Insomnia Patient Disposition: Home, Self-Care Instructions: Oral Candidiasis (ED) Additional Instructions: Use Diflucan once daily for the next 2 weeks Follow-up with your primary doctor Take melatonin up to 6 mg daily approximately 20 minutes before trying to go to sleep Prescriptions: New fluconazole [Diflucan] 100 mg tablet 100 mg PO DAILY Qty: 14 0RF melatonin 3 mg/4 mL drops 3 mg PO BEDTIME PRN (Reason: sleep) Qty: 60 0RF No Action peg 3350-electrolytes 236-22.74-6.74 -5.86 gram recon soln 240 ml PO Q10M Qty: 4000 0RF Rx Instructions: Refer to prep instructions given/ mailed to you from GI OFFICE. until fecal effluent is clear oxycodone-acetaminophen [Percocet] 5-325 mg tablet 1 - 2 tab PO Q4-6H PRN (Reason: pain) Qty: 30 0RF paroxetine HCl 20 mg tablet 1 tab PO DAILY lisinopril 10 mg tablet 1 tab PO DAILY tamsulosin [Flomax] 0.4 mg capsule 0.4 mg PO BEDTIME (DME) walker Misc See Rx Instructions .MEDSUPPLY Qty: 1 0RF Rx Instructions: Folding Front wheeled walker tolterodine 4 mg capsule,extended release 24hr 4 mg PO QAM alfuzosin 10 mg tablet extended release 24 hr 10 mg PO BEDTIME docusate sodium 100 mg capsule 100 mg PO BID 30 Days Qty: 60 6RF Dexilant 60 mg capsule,biphase delayed releas 60 mg PO BEDTIME Qty: 30 6RF zolpidem 10 mg tablet 10 mg PO BEDTIME atorvastatin 40 mg tablet 40 mg PO DAILY celecoxib 200 mg capsule 200 mg PO BID Linzess 290 mcg capsule 290 mcg PO DAILY Qty: 30 6RF Rx Instructions: We are discontinuing the reglan and the bisacodyl
[2022-08-02 19:15] VITALS: BP 136/67; PULSE 61; RESP 18; TEMP 36; O2SAT 100; BMI 31.1
--- NOTE | 2022-08-02 19:17 | ECG_ITS ---
Test Reason : abd pain Blood Pressure : / mmHG Vent. Rate : 059 BPM Atrial Rate : 059 BPM P-R Int : 178 ms QRS Dur : 080 ms QT Int : 394 ms P-R-T Axes : 061 013 038 degrees QTc Int : 390 ms Sinus bradycardia with sinus arrhythmia Otherwise normal ECG When compared with ECG of 31-OCT-2021 02:08, No significant change was found Referred By: Lucía Hathaway Electronically Signed By:LATOSHA WOLFF MD
[2022-08-02 19:37] LABS: MANUAL DIFF FLAG NO
[2022-08-02 19:38] LABS: Basophils Percent Auto 0.5 % (0-2); Eosinophils Absolute Auto 0.2 X10*3/uL (0.0-0.4); Eosinophils Percent Auto 3.2 % (0-4); Hematocrit 37.4 % (42.0-52.0); Hemoglobin 12.8 g/dl (14.0-18.0); Imm Gran Abs Auto 0.04 X10*3/uL (0.00-0.03); Imm Gran Pct Auto 0.7 % (0.0-0.4); Lymphocytes Absolute Auto 2.6 X10*3/uL (1.2-4.9); Lymphocytes Percent Auto 43.2 % (20-40); Mean Corpuscular HGB Conc 34.2 g/dl (31.0-36.0); Mean Corpuscular Hemoglobin 31.4 pg (27.0-33.0); Mean Corpuscular Volume 91.9 fL (80.0-98.0); Mean Platelet Volume 9.4 fL (9.4-12.4); Monocytes Absolute Auto 0.6 X10*3/uL (0.1-1.2); Monocytes Percent Auto 9.4 % (2-11); Neutrophils Absolute Auto 2.6 x10*3/uL (2.0-8.3); Platelet Count 218 X10*3/uL (160-400); Red Blood Count 4.07 X10*6/uL (4.60-5.80); Red Cell Distribution Width 13.5 % (11.0-16.0)
[2022-08-02 19:58] LABS: Alanine Aminotransferase 49 U/L (0-40); Alkaline Phosphatase 75 U/L (39-117); Anion Gap 10 (12-20); Aspartate Amino Transferase 28 U/L (5-37); Bilirubin Direct 0.1 mg/dL (0.0-0.5); Bilirubin Total 0.4 mg/dL (0.0-1.0); Blood Urea Nitrogen 20 mg/dL (9-16); Carbon Dioxide 26 mmol/L (22-29); Chloride 109 mmol/L (96-108); Creatinine Clr Calc Pharmacy 70.4; Estimated Glomerular Filt Rate > 60; Glucose Random 83 mg/dL (60-115); Lipase 48 U/L (8-78); Magnesium 2.1 mg/dL (1.6-2.6); Potassium 4.1 mmol/L (3.3-5.1); Sodium 141 mmol/L (135-145); Total Protein 6.8 g/dL (6.5-8.0)
[2022-08-02 22:00] LABS: Appearance Urine Clear; Color Urine Yellow; Glucose Urine UA Negative (Negative); Leukocyte Esterase Urine Negative (Negative); Nitrite Urine Negative (Negative); PH 5.5 (5.0-9.0); Urine Blood Negative (Negative); Urine Ketones Negative (Negative); Urine Protein Negative (Neg-Trace)
[2022-08-02] MEDS: Magnesium Hydrox/Alum Hydrox 30 ML ORAL.SUSP PO (22:15)
[2022-08-02] MEDS: Fluconazole 100 MG TABLET 200 MG PO (22:15)
[2022-08-02] MEDS: Lidocaine HCl Viscous 2 % 15 ML SOLUTION MUCOUS MEM (22:15)
[2022-08-02 22:22] VITALS: BP 137/70; PULSE 58; RESP 18; TEMP 36.9; O2SAT 99
--- NOTE | 2022-08-02 22:30 | PC.NURSE ---
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 Patient reports abdominal pain and white tongue. Pt a/o x3, afebrile, vss. Medications administered as per MAR
[2022-08-03 07:13] LABS: Estimated Average Glucose 103 mg/dL; Hemoglobin A1c % 5.2 %
== END 2022-08-02 22:39 | disposition home or self-care (01) ==
PROVIDERS: Physician Assistant; Emergency Provider Emergency Medicine Emergency Medical Services; PCP Internal Medicine
DX: B37.0 Candidal stomatitis (principal); G47.00 Insomnia, unspecified; R10.13 Epigastric pain; I10 Essential (primary) hypertension; K21.9 Gastro-esophageal reflux disease without esophagitis
CPT/HCPCS: 36415; 80048; 80076; 81003; 83036; 83690; 83735; 85025; 93005; 99283; 99285

== ENCOUNTER 2022-10-08 14:01 | Outpatient (REF) | payer OTHER, SELFPAY ==
[2022-10-09 03:46] LABS: HIV AB/AG Nonreactive (Nonreactive); HIV Num 1 0.06 S/CO (0.00-0.99)
== END 2022-10-08 14:02 | disposition home or self-care (01) ==
LOC: HO.LAB 14:01
PROVIDERS: PCP Internal Medicine; Visit Provider Internal Medicine
DX: Z11.4 Encounter for screening for human immunodeficiency virus [HIV] (principal)
CPT/HCPCS: 36415; 87389

== ENCOUNTER 2023-01-09 11:55 | Emergency (ER) | payer OTHER, SELFPAY ==
--- NOTE | ~2023-01-09 | XR_ITS ---
EXAMINATION: XR ABDOMEN KUB CLINICAL INDICATION: Constipation for 2 days COMPARISON: None available. TECHNIQUE: AP view of the abdomen. FINDINGS: The bowel gas pattern is normal with no evidence of ileus or obstruction. Moderate stool is present throughout the colon without dilatation. No unusual soft tissue calcifications are noted. Degenerative changes are present throughout the spine and bilateral hip prostheses are present.. XR/XR KUB IMPRESSION: No evidence of bowel obstruction. Moderate stool burden.
[2023-01-09 12:08] VITALS: BP 142/70; PULSE 68; RESP 18; TEMP 36.8; O2SAT 95
--- NOTE | 2023-01-09 12:17 | ED.GENADULT ---
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 ? Patient has a history of chronic constipation follows GI with Dr. Armendariz He also has a history of hemorrhoids and has had hemorrhoidectomy with Dr. Kessler His primary complaint today is ?a bad taste in my mouth that tastes like metal. ? He states this keeps him from sleeping because ?I have to get out of bed and brush my teeth twice every night. ? Patient reports that he has never had this worked up in the past He has had this states for approximately 1 year. Patient also history of chronic constipation and states he has not had a bowel movement in 2 days He denies any rectal pain or bleeding. His abdominal pain is ?04/30. ? Patient reports ?I feel like something is blocked in my abdomen. ? He is still passing gas Related Data Home Medications Medication Instructions Recorded Confirmed tamsulosin 0.4 mg capsule (Flomax) 0.4 mg PO BEDTIME 12/07/19 07/15/22 lisinopril 10 mg tablet 1 tab PO DAILY 09/18/20 07/15/22 paroxetine HCl 20 mg tablet 1 tab PO DAILY 09/18/20 07/15/22 atorvastatin 40 mg tablet 40 mg PO DAILY 07/09/21 07/15/22 zolpidem 10 mg tablet 10 mg PO BEDTIME 07/09/21 07/15/22 celecoxib 200 mg capsule 200 mg PO BID 10/09/21 07/15/22 alfuzosin 10 mg tablet,extended 10 mg PO BEDTIME 05/13/22 07/15/22 release 24 hr tolterodine 4 mg capsule,extended 4 mg PO QAM 05/13/22 07/15/22 release 24 hr Previous Rx's Medication Instructions Recorded walker #1 ea 12/07/19 oxycodone-acetaminophen 5 mg-325 1 - 2 tab PO Q4-6H PRN pain #30 08/12/20 mg tablet (Percocet) tabs docusate sodium 100 mg capsule 100 mg PO BID 30 days #60 caps 05/13/22 linaclotide 290 mcg capsule 290 mcg PO DAILY #30 caps 06/03/22 (Linzess) peg 3350-electrolytes 236 240 ml PO Q10M #4,000 mL 07/20/22 gram-22.74 gram-6.74 gram-5.86 gram solution fluconazole 100 mg tablet 100 mg PO DAILY #14 tabs 08/02/22 (Diflucan) melatonin 3 mg/4 mL oral drops 3 mg (4 mL) PO BEDTIME PRN sleep 08/02/22 #60 mL dexlansoprazole 60 mg 60 mg PO BEDTIME #30 caps 01/07/23 capsule,biphase delayed release magnesium citrate 300 ml PO DAILY PRN constipation 01/09/23 #296 mL nystatin 100,000 unit/mL oral 500,000 unit (5 mL) buccal QID 7 01/09/23 suspension days #140 mL polyethylene glycol 3350 17 17 g PO DAILY 14 days #238 grams 01/09/23 gram/dose oral powder (Miralax) Allergies Allergy/AdvReac Type Severity Reaction Status Date / Time No Known Allergies Allergy Verified 01/09/23 12:08 [No Known Allergies*] Review of Systems Constitutional: Constitutional: Denies chills and Denies fever(s) ENT: Reports halitosis, Reports dry mouth, Denies neck pain, Denies odynophagia and Denies sore throat Cardiovascular: Cardiovascular: Denies chest pain and Denies dyspnea Respiratory: Respiratory: Denies cough and Denies dyspnea Gastrointestinal: Gastrointestinal: Reports abdominal pain, Reports constipation, Denies nausea, Denies odynophagia and Denies vomiting Musculoskeletal: Musculoskeletal: Denies back pain and Denies neck pain [facility] Past Medical History Medical History (Updated 01/10/23 @ 00:01 by Fredrick Henao) COVID-19 vaccine administered Arthritis History of BPH HTN (hypertension) GERD (gastroesophageal reflux disease) Hemorrhoids with complication Primary osteoarthritis of right hip Surgical History (Updated 07/15/22 @ 14:59 by Clara Johns RN) History of total right hip arthroplasty History of hemorrhoidectomy Hx of cataract extraction History of pterygium excision History of arthroplasty of left hip (11/09/16) History of prostate surgery (2004) History of colonoscopy History of esophagogastroduodenoscopy (EGD) Family History Family History Brother Diabetes Blind Social History Social History Household Members: None Are you a primary critical care nurse practitioner to a significant other at home: No Do you presently have visiting nurse or other home services: Yes ([facility]) Alcohol intake: current Alcohol intake frequency: a few times a week Alcohol type: beer Patient Tobacco Use Status: Never used Tobacco Smoked in Last 30 Days: No Use of substances other than those prescribed or required for medical reasons: No Advance Directives: No Advance Directives Information Provided: No Current occupational status: disabled 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 Physical Exam ED Vital Signs: Vital Signs - 24 hr 01/09/23 16:50 Temperature 98.1 F Pulse Rate 52 Respiratory Rate 18 Blood Pressure 125/60 Pulse Oximetry 97 Oxygen Delivery Method Room Air BMI result Body Mass Index 30.0 Const General: healthy appearing, comfortable, no acute distress, alert and awake Nutritional Appearance: well nourished Orientation/consciousness: patient oriented x3 HENMT Other: Patient has a thin white film covering the posterior tongue and the retropharynx. Head: Yes normocephalic and Yes atraumatic Eyes Eyelids: Yes eyelids normal Conjunctivae: conjunctivae normal Sclerae: sclerae normal Corneas: corneas normal Pupils: Equal, round and reactive pupils present EOM: EOMs intact bilaterally Neck Neck: Yes full ROM Resp Effort & Inspection: normal respiratory effort, able to speak in complete sentences and not labored Cardio Rate: regular rate Rhythm: regular rhythm GI Inspection: No distended Palpation (GI): Soft to palpation, not firm, nontender, no guarding and not rigid Auscultation: normoactive bowel sounds Skin General skin exam: no rashes or lesions noted and elasticity normal Neuro General: patient oriented x3 Cranial nerves: Yes Equal, round and reactive pupils present and Yes Bilaterally intact EOM present Cognition (Neuro): normal cognition Extrem Other: Moving all extremities well without any obvious deformities Course Course Course Narrative: RME: 72 yold male presents to the ED for white tougue for 6 weeks and constipation for the past two days. patient states no nausea, fever, chills, coughing, or sytmpomts. Tongue mild white Medical Decision Making Medical Decision Making MDM Narrative: 72-year-old male presents for evaluation of 2 separate complaints. Complains of a bad taste is mouth is consistent with mild thrush. This will be treat with nystatin. There is no edema to the retropharynx. Patient complains of constipation but is still passing gas. His abdominal exam is reassuring, he is nontender throughout and nondistended. Patient has no black or bloody stool. Rectal exam shows no evidence of external hemorrhoids. Labs are without significant abnormalities. Patient's KUB shows moderate constipation which was discussed with the patient. There is no evidence of obstruction. Differential Diagnosis Differential Diagnoses: The differential diagnosis associated with the presentation includes Thrush Oral candidiasis Esophagitis Pharyngitis GERD Constipation Bowel obstruction Hemorrhoids Lab Data [facility] Lab Attestation statement: I reviewed the patient's lab results. No leukocytosis. The patient has a chronic anemia consistent with his baseline. No significant electrolyte abnormalities. LFTs are normal limits. 01/09/23 12:35 01/09/23 12:35 Labs: Lab Results 01/09/23 Range/Units 12:35 WBC 5.6 (4.8-10.8) X10*3/uL RBC 4.03 L (4.60-5.80) X10*6/uL Hgb 12.9 L (14.0-18.0) g/dl Hct 37.7 L (42.0-52.0) % MCV 93.5 (80.0-98.0) fL MCH 32.0 (27.0-33.0) pg MCHC 34.2 (31.0-36.0) g/dl RDW 13.2 (11.0-16.0) % Plt Count 200 (160-400) X10*3/uL MPV 9.4 (9.4-12.4) fL Immature Gran % (Auto) 0.4 (0.0-0.4) % Neut % (Auto) 53.4 (45-73) % Lymph % (Auto) 35.8 (20-40) % [place] % (Auto) 7.6 (2-11) % Eos % (Auto) 2.3 (0-4) % Baso % (Auto) 0.5 (0-2) % Lymph # (Auto) 2.0 (1.2-4.9) X10*3/uL [place] # (Auto) 0.4 (0.1-1.2) X10*3/uL Eos # (Auto) 0.1 (0.0-0.4) X10*3/uL Baso # (Auto) 0.0 (0.0-0.2) X10*3/uL Abs Immat Gran (auto) 0.02 (0.00-0.03) X10*3/uL Absolute Neuts (auto) 3.0 (2.0-8.3) x10*3/uL Absolute Nucleated RBC 0.000 (0.0-0.012) X10*3/uL Nucleated RBC % (auto) 0.0 (0.0-0.2) /100WBC Sodium 143 (135-145) mmol/L Potassium 4.1 (3.3-5.1) mmol/L Chloride 109 H (96-108) mmol/L Carbon Dioxide 27 (22-29) mmol/L Anion Gap 11 L (12-20) BUN 13 (9-16) mg/dL Creatinine 0.92 (0.5-1.4) mg/dL Estim Creat Clear Calc 76.1 Estimated GFR > 60 Random Glucose 110 (60-115) mg/dL Calcium 10.2 (8.4-10.2) mg/dL Total Bilirubin 0.4 (0.0-1.0) mg/dL AST 24 (5-37) U/L ALT 37 (0-40) U/L Alkaline Phosphatase 66 (39-117) U/L Total Protein 6.7 (6.5-8.0) g/dL Albumin 3.9 (3.5-5.0) g/dL Lipase 32 (8-78) U/L COVID-19 (ALFONSO) Negative (Negative) COVID-19 Clin Com See Note Influenza Type A (JAYA) Negative (Negative) Influenza Type B (JAYA) Negative (Negative) Influenza A & B Note See Note Independent Interpretation I performed an independent interpretation of an: Plain X-Ray Interpretation: Nonobstructive bowel gas pattern. Mostly right-sided stool burden Radiology Impression Discussion of test interpretation with radiology: I have reviewed the radiologist's reading. Radiologist Impression: No evidence of bowel obstruction. Moderate stool burden Tests considered The following testing was considered but not selected: Considered CT scan of the abdomen pelvis to evaluate for obstruction however clinically the patient not obstructed his KUB does not show high suspicion for obstruction so this was deferred. Discharge Plan Discharge Clinical Impression: Candidiasis of mouth, Chronic constipation Patient Disposition: Home, Self-Care Instructions: Constipation (ED), Oral Candidiasis (ED) Additional Instructions: Use the nystatin as directed, swish and swallow Take MiraLax daily for the next 2 weeks. Use magnesium citrate, drink the entire bottle tomorrow Increase fluid and fiber intake in your diet I recommend that you follow-up with your director craft center, call tomorrow morning to schedule follow-up Prescriptions: New polyethylene glycol 3350 [Miralax] 17 gram/dose powder 17 g PO DAILY 14 Days Qty: 238 0RF magnesium citrate Solution 300 ml PO DAILY PRN (Reason: constipation) Qty: 296 0RF nystatin 100,000 unit/mL suspension 500,000 unit buccal QID 7 Days Qty: 140 0RF Rx Instructions: administer 1/2 of dose in each side of the mouth. swish and swallow No Action peg 3350-electrolytes 236-22.74-6.74 -5.86 gram recon soln 240 ml PO Q10M Qty: 4000 0RF Rx Instructions: Refer to prep instructions given/ mailed to you from GI OFFICE. until fecal effluent is clear dexlansoprazole 60 mg capsule,biphase delayed releas 60 mg PO BEDTIME Qty: 30 6RF oxycodone-acetaminophen [Percocet] 5-325 mg tablet 1 - 2 tab PO Q4-6H PRN (Reason: pain) Qty: 30 0RF paroxetine HCl 20 mg tablet 1 tab PO DAILY lisinopril 10 mg tablet 1 tab PO DAILY fluconazole [Diflucan] 100 mg tablet 100 mg PO DAILY Qty: 14 0RF melatonin 3 mg/4 mL drops 3 mg PO BEDTIME PRN (Reason: sleep) Qty: 60 0RF tamsulosin [Flomax] 0.4 mg capsule 0.4 mg PO BEDTIME (DME) diana [facility] See Rx Instructions .MEDSUPPLY Qty: 1 0RF Rx Instructions: Folding Front wheeled walker tolterodine 4 mg capsule,extended release 24hr 4 mg PO QAM alfuzosin 10 mg tablet extended release 24 hr 10 mg PO BEDTIME docusate sodium 100 mg capsule 100 mg PO BID 30 Days Qty: 60 6RF zolpidem 10 mg tablet 10 mg PO BEDTIME atorvastatin 40 mg tablet 40 mg PO DAILY celecoxib 200 mg capsule 200 mg PO BID Linzess 290 mcg capsule 290 mcg PO DAILY Qty: 30 6RF Rx Instructions: We are discontinuing the reglan and the bisacodyl Referrals: Je Armendariz MD [Physician] - (chronic constipation) Interventions: ED Discharge Assessment Last Done: 01/09/23 18:03 Discharge Date/Time: 01/09/23 18:03
[2023-01-09 12:40] LABS: MANUAL DIFF FLAG NO
[2023-01-09 12:45] LABS: Basophils Percent Auto 0.5 % (0-2); Eosinophils Absolute Auto 0.1 X10*3/uL (0.0-0.4); Eosinophils Percent Auto 2.3 % (0-4); Hematocrit 37.7 % (42.0-52.0); Hemoglobin 12.9 g/dl (14.0-18.0); Imm Gran Abs Auto 0.02 X10*3/uL (0.00-0.03); Imm Gran Pct Auto 0.4 % (0.0-0.4); Lymphocytes Percent Auto 35.8 % (20-40); Mean Corpuscular HGB Conc 34.2 g/dl (31.0-36.0); Mean Corpuscular Volume 93.5 fL (80.0-98.0); Mean Platelet Volume 9.4 fL (9.4-12.4); Monocytes Absolute Auto 0.4 X10*3/uL (0.1-1.2); Monocytes Percent Auto 7.6 % (2-11); Neutrophils Percent Auto 53.4 % (45-73); Platelet Count 200 X10*3/uL (160-400); Red Blood Count 4.03 X10*6/uL (4.60-5.80); Red Cell Distribution Width 13.2 % (11.0-16.0); White Blood Count 5.6 X10*3/uL (4.8-10.8)
[2023-01-09 12:59] LABS: COVID-19 Test Negative (Negative); IDNOW Serial# 58CA691E; IDNOW Serial# 9DB6401D
[2023-01-09 13:00] LABS: Influenza A Negative (Negative); Influenza B2 Negative (Negative)
[2023-01-09 13:01] LABS: Alanine Aminotransferase 37 U/L (0-40); Albumin Level 3.9 g/dL (3.5-5.0); Alkaline Phosphatase 66 U/L (39-117); Anion Gap 11 (12-20); Aspartate Amino Transferase 24 U/L (5-37); Bilirubin Total 0.4 mg/dL (0.0-1.0); Blood Urea Nitrogen 13 mg/dL (9-16); Calcium 10.2 mg/dL (8.4-10.2); Carbon Dioxide 27 mmol/L (22-29); Chloride 109 mmol/L (96-108); Creatinine Clr Calc Pharmacy 76.1; Estimated Glomerular Filt Rate > 60; Glucose Random 110 mg/dL (60-115); Lipase 32 U/L (8-78); Potassium 4.1 mmol/L (3.3-5.1); Sodium 143 mmol/L (135-145); Total Protein 6.7 g/dL (6.5-8.0)
--- NOTE | 2023-01-09 16:47 | PC.NURSE ---
Patient reports abdominal pain that has beeing going on for 5 years that occurs after he eats. States has not had a BM in 2-3 days and is only able to go a small amount. Stool is small and hard. Denies pain with urination. Reports bitter taste in mouth that doesn't allow him to sleep. States brushes teeth 4 times a day and does not have teeth but wears dentures in public.
[2023-01-09 16:50] VITALS: BP 125/60; PULSE 52; RESP 18; TEMP 36.7; O2SAT 97
== END 2023-01-09 18:03 | disposition home or self-care (01) ==
PROVIDERS: Physician Assistant; Emergency Provider Student in an Organized Health Care Education/Training Program; PCP Internal Medicine
DX: B37.0 Candidal stomatitis (principal); K59.00 Constipation, unspecified; Z11.52 Encounter for screening for COVID-19; Z20.822 Contact with and (suspected) exposure to COVID-19; Z79.899 Other long term (current) drug therapy
CPT/HCPCS: 74018; 80053; 83690; 85025; 87502; 87635; 99284

== ENCOUNTER 2023-02-22 15:29 | Outpatient (AMB) | payer OTHER, SELFPAY ==
--- NOTE | 2023-02-22 15:33 | A.OFFVIS_ITS ---
Intake Vital Signs 02/22/23 15:44 Height 5 ft 6 in Weight 186 lb 1.122 oz BMI 30.0 BP 131/71 Blood Pressure Location Rt brachial Position Sitting Pulse 64 Intake Visit Reasons: Follow up Katy Intake Note: Patient presents to in office visit today in follow up of colonoscopy. CC: He underwent colonoscopy on 07/21/22. Patient reports he has noticed his a white color from his tongue and a bitter taste in his mouth. He c/o constipation and indigestion. Silverware Washer Required: Yes Accompanied by: Self / Same As Patient Allergies No Known Allergies [No Known Allergies*] Allergy (Verified 02/22/23 15:50) HPI Follow up Katy HPI Details Assessment & Plan (1) Chronic idiopathic constipation: Code(s): K59.04 - Chronic idiopathic constipation Plan: [place] #Alta Akhtar He wants to stop the reglan and the bisacodyl because he feels they are not working for him. He wants to stay on the Linzess 290, but admits that some days I will take 3 of them. I explain that this is not recommended, and that I can't get the insurance to pay for more than 1 a day, so if he runs out I can not do anything about this. He says he understands. He has not heard regarding booking for colonoscopy. He is agreeable to going for his blood work since I remind him. He wishes to stay on the Dexiiant as he feels this is controlling his GERD well. ROV 6 mos and after the colonoscopy. (2) Hemorrhoids: Code(s): K64.9 - Unspecified hemorrhoids (3) Tubular adenoma of colon: Code(s): D12.6 - Benign neoplasm of colon, unspecified Medications: Changed From linaclotide 290 mcg PO DAILY 30 caps 6RF To linaclotide (Linze ss) We are disc ontinuing the regl an and the bisacod yl 290 mcg PO DAILY 30 caps 6RF Discontinued hydrocortisone 2.5 % Discontinued Reason: Doctor's Order 1 appl NC BID 14 days 30 grams 1RF K64.9 - Unspecifie d hemorrhoids bisacodyl Pleas e take this qhs an d the Linzess qam as his CIC is jere re Discontinued Reason: Doctor's Order 15 mg (3 x 5 mg) P O BEDTIME 30 days 90 tabs 6RF K59.04 - Chronic i diopathic constipa tion metoclopramide HCl Discontinued R marycarmen: Doctor's O rder 20 mg (2 x 10 mg) PO QIDACHS 120 tab s 6RF K59.9 - Functional intestinal disord er, unspecified ? COLONOSCOPY 07/21/22 Findings: Terminal Ileum-normal Cecum:normal Ascending Colon: normal Transverse Colon -normal Descending Colon: 10 mm sessile polyp removed with cold snare Sigmoid Colon: 4-6 mm sessile polyp removed with cold forceps Rectum: Retroflexion with small internal hemorrhoids, grade I Anorectum - normal Impression and Post Procedure Diagnosis: polyps internal hemorrhoids Plan: High fiber diet leaflet Avoid straining at stool, epsom salts and sitz bath, anusol supps or cream Repeat Colonoscopy in 2-3 years due to fair prep on right side or earlier if clinically indicated BIOPSY Received: 07/21/22 Diagnosis A. Colon, descending, polypectomy: Fragments of tubular adenoma; negative for high-grade dysplasia or carcinoma. B. Colon, sigmoid, polypectomy: Hyperplastic mucosal polyp TODAY'S VISIT PAPUA [place] #Ana and Brian The procedure should be repeated in 3 years due to the large size of the polyp in the descending colon. The procedure was well tolerated. The results were explained and the patient is agreeable to the follow-up interval as stated. The bowel pattern has returned to normal. Education was provided to tell any 1st degree relatives about their findings to be sure that they are screened by age 45. Educated that they will be put on a recall list when it is time for their repeat scope but should they move out of state or away from the hospital they will need to remember along with their primary to repeat the procedure in a timely fashion to avoid any adverse complications. He continues on the Linzess and the Dexilant. THE RETURN OFFICE VISIT IN 6 MONTHS. [facility]LY [facility] Medical History COVID-19 vaccine administered Arthritis History of BPH HTN (hypertension) GERD (gastroesophageal reflux disease) Hemorrhoids with complication Primary osteoarthritis of right hip Surgical History History of total right hip arthroplasty History of hemorrhoidectomy Hx of cataract extraction History of pterygium excision History of arthroplasty of left hip (11/09/16) History of prostate surgery (2004) History of colonoscopy History of esophagogastroduodenoscopy (EGD) Family History Brother Diabetes Blind Social History Household Members: None Are you a primary manager home healthcare to a significant other at home: No Do you presently have visiting nurse or other home services: Yes ([facility]) Alcohol intake: current Alcohol intake frequency: a few times a week Alcohol type: beer Patient Tobacco Use Status: Never used Tobacco Current occupational status: disabled 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 Review of Systems Const Denies fatigue, Denies fever(s), Denies night sweats, Denies poor appetite and Denies weight loss ENT Reports Normal hearing present, Denies dental pain, Denies dysphagia, Denies hearing loss, Denies mouth pain, Denies odynophagia, Denies throat swelling, Denies tongue swelling and Reports other (Dentition adequate) Card Reports no additional complaints Resp Reports no additional complaints GI Denies abdominal pain, Denies melena, Denies bloating, Denies hematochezia, Reports constipation, Denies GI cramping, Denies dysphagia, Denies excessive flatus, Denies early satiety, Reports heartburn, Denies diarrhea, Denies nausea, Denies odynophagia, Denies vomiting and Denies hematemesis Skin/Breast Denies pruritus, Denies lesions, Denies rash and Denies jaundice Neuro Reports Normal hearing present and Denies Abnormal speech present Endo Denies fatigue Aller/Immun Denies throat swelling and Denies tongue swelling Physical Exam Vital Signs: Last Vital Signs Pulse 64 02/22/23 15:44 BP 131/71 02/22/23 15:44 BMI result Body Mass Index 30.0 Const General: cooperative, no acute distress, well developed and well groomed Nutritional Appearance: well nourished and obese Orientation/consciousness: oriented to person, oriented to place and oriented to time Limitations: language barrier HEENT Head: Yes normocephalic and Yes atraumatic Eyes General: appearance normal, both eyes and all related structures Pupils: Equal, round and reactive pupils present Neck Neck: Yes normal visual inspection and Yes no lymphadenopathy Thyroid: Thyroid normal Resp Effort & Inspection: normal respiratory effort and able to speak in complete sentences Auscultation: clear to auscultation bilaterally Cardio Rate: regular rate Rhythm: regular rhythm Heart sounds: Normal, physiologic split S2 sound present Peripheral pulses: radial pulses present and posterior tibial pulses present GI Inspection: No distended, Yes Abdominal panniculus present and Yes obesity Palpation (GI): Soft to palpation, nontender, no guarding, not rigid and No hepatosplenomegaly present Percussion: Yes normal to percussion Auscultation: normal bowel sounds Rectal Exam - Male: Yes deferred Skin General skin exam: no rashes or lesions noted, turgor normal, skin not dry, no jaundice, No spider nevi and no striae Rashes: no rashes Nails: normal Neuro General: oriented to person, oriented to place and oriented to time Cranial nerves: Yes Equal, round and reactive pupils present and Yes Normal hearing present Speech: No Abnormal speech present Extrem General: Yes normal to inspection, No clubbing, No cyanosis and No edema Psych Appearance: grossly normal and well kempt Mental Status: mental status grossly normal Speech and movement: Normal speech and movement present Affect: normal affect Attitude: cooperative Thought process: Normal thought process present and not confabulating Thought content: Normal thought content present Insight: Limited insight present (Psych) Judgement: Limited judgement present (Psych) Assessment & Plan Assessment & Plan (1) Tubular adenoma of colon: Comment: 06/2022 scope equals 1 large TA repeat in 3 years Code(s): D12.6 - Benign neoplasm of colon, unspecified (2) GERD (gastroesophageal reflux disease): Code(s): K21.9 - Gastro-esophageal reflux disease without esophagitis (3) Chronic idiopathic constipation: Code(s): K59.04 - Chronic idiopathic constipation Plan [place] #Stephanie The procedure should be repeated in 3 years due to the large size of the polyp in the descending colon. The procedure was well tolerated. The results were explained and the patient is agreeable to the follow-up interval as stated. The bowel pattern has returned to normal. Education was provided to tell any 1st degree relatives about their findings to be sure that they are screened by age 45. Educated that they will be put on a recall list when it is time for their repeat scope but should they move out of state or away from the hospital they will need to remember along with their primary to repeat the procedure in a timely fashion to avoid any adverse complications. He continues on the Linzess and the Dexilant. THE RETURN OFFICE VISIT IN 6 MONTHS. Medications: Refilled dexlansoprazole 60 mg PO BEDTIME 30 caps 6RF linaclotide (Linzess) 290 mcg PO DAILY 30 caps 6RF Coding Level of Care Code Est Pt Level 3 (95451) Diagnoses Tubular adenoma of colon D12.6 GERD (gastroesophageal reflux disease) K21.9 Chronic idiopathic constipation K59.04
[2023-02-22 15:44] VITALS: BP 131/71; PULSE 64
== END 2023-02-22 16:09 | disposition home or self-care (01) ==
PROVIDERS: PCP Internal Medicine; Visit Provider Nurse Practitioner
DX: D12.6 Benign neoplasm of colon, unspecified (principal); K21.9 Gastro-esophageal reflux disease without esophagitis; K59.04 Chronic idiopathic constipation
CPT/HCPCS: 99213

== ENCOUNTER → 2023-02-22 15:29 | Outpatient (BNVA) | payer OTHER, SELFPAY | PROVIDERS: PCP Internal Medicine; Visit Provider Nurse Practitioner | DX: D12.4 Benign neoplasm of descending colon (principal); K64.0 First degree hemorrhoids; K21.9 Gastro-esophageal reflux disease without esophagitis; K59.04 Chronic idiopathic constipation; Z98.890 Other specified postprocedural states | CPT/HCPCS: 99212 ==

== ENCOUNTER 2023-06-06 20:53 | Emergency (ER) | payer OTHER, SELFPAY ==
--- NOTE | ~2023-06-06 | XR_ITS ---
EXAMINATION: XR ABDOMEN KUB CLINICAL INDICATION: Constipation COMPARISON: 01/09/2023 TECHNIQUE: AP view of the abdomen. FINDINGS: Bowel gas pattern is nonobstructive. Limited evaluation for free air with supine positioning. Mild amount of stool is present. No suspicious calcifications are seen. Partially visualized bilateral hip arthroplasty hardware. Endplate osteophytes in the lumbar spine. Included lung bases appear well aerated. XR/XR KUB IMPRESSION: Nonobstructive bowel gas pattern. Mild volume of stool.
[2023-06-06 21:21] VITALS: BP 110/65; PULSE 53; RESP 16; TEMP 37.2; O2SAT 99; BMI 29.3
[2023-06-06 21:47] LABS: MANUAL DIFF FLAG NO
[2023-06-06 21:56] LABS: Basophils Percent Auto 0.4 % (0-2); Eosinophils Absolute Auto 0.1 X10*3/uL (0.0-0.4); Eosinophils Percent Auto 2.9 % (0-4); Hematocrit 34.8 % (42.0-52.0); Hemoglobin 11.9 g/dl (14.0-18.0); Imm Gran Abs Auto 0.03 X10*3/uL (0.00-0.03); Imm Gran Pct Auto 0.6 % (0.0-0.4); Lymphocytes Absolute Auto 2.5 X10*3/uL (1.2-4.9); Lymphocytes Percent Auto 50.8 % (20-40); Mean Corpuscular HGB Conc 34.2 g/dl (31.0-36.0); Mean Corpuscular Volume 93.5 fL (80.0-98.0); Mean Platelet Volume 9.4 fL (9.4-12.4); Monocytes Absolute Auto 0.5 X10*3/uL (0.1-1.2); Monocytes Percent Auto 10.6 % (2-11); Neutrophils Absolute Auto 1.7 x10*3/uL (2.0-8.3); Neutrophils Percent Auto 34.7 % (45-73); Platelet Count 205 X10*3/uL (160-400); Red Blood Count 3.72 X10*6/uL (4.60-5.80); White Blood Count 4.9 X10*3/uL (4.8-10.8)
[2023-06-06 22:04] LABS: Alanine Aminotransferase 95 U/L (0-40); Albumin Level 3.7 g/dL (3.5-5.0); Alkaline Phosphatase 68 U/L (39-117); Anion Gap 10 (12-20); Aspartate Amino Transferase 44 U/L (5-37); Bilirubin Total 0.4 mg/dL (0.0-1.0); Blood Urea Nitrogen 16 mg/dL (9-16); Calcium 9.5 mg/dL (8.4-10.2); Carbon Dioxide 27 mmol/L (22-29); Chloride 111 mmol/L (96-108); Creatinine Clr Calc Pharmacy 69.6; Estimated Glomerular Filt Rate > 60; Glucose Random 85 mg/dL (60-115); Lipase 38 U/L (8-78); Potassium 3.9 mmol/L (3.3-5.1); Sodium 144 mmol/L (135-145); Total Protein 6.6 g/dL (6.5-8.0)
[2023-06-07 02:11] VITALS: BP 136/69; PULSE 62; RESP 16; TEMP 36.8; O2SAT 98
--- NOTE | 2023-06-07 02:45 | ED.ABDPAIN ---
HPI - Abdominal Pain General Chief Complaint: Abdominal Pain Stated Complaint: abdominal pain Time Seen by Provider: 06/07/23 02:08 Source: patient Mode of arrival: ambulatory Limitations: no limitations History of Present Illness HPI narrative: Patient with history of IBS anxiety on Linzess comes here for chronic constipation abdominal patient's vomiting no abdominal distention patient has been seen by paid search marketing analyst had colonoscopy before which was negative last bowel movement was 2 days ago no fever no chills no blood in his stools Related Data Home Medications ?Medication ?Instructions ?Recorded ?Confirmed tamsulosin 0.4 mg capsule (Flomax) 0.4 mg PO BEDTIME 12/07/19 07/15/22 lisinopril 10 mg tablet 1 tab PO DAILY 09/18/20 07/15/22 paroxetine HCl 20 mg tablet 1 tab PO DAILY 09/18/20 07/15/22 atorvastatin 40 mg tablet 40 mg PO DAILY 07/09/21 07/15/22 zolpidem 10 mg tablet 10 mg PO BEDTIME 07/09/21 07/15/22 celecoxib 200 mg capsule 200 mg PO BID 10/09/21 07/15/22 alfuzosin 10 mg tablet,extended 10 mg PO BEDTIME 05/13/22 07/15/22 release 24 hr tolterodine 4 mg capsule,extended 4 mg PO QAM 05/13/22 07/15/22 release 24 hr Previous Rx's ?Medication ?Instructions ?Recorded walker #1 ea 12/07/19 oxycodone-acetaminophen 5 mg-325 1 - 2 tab PO Q4-6H PRN pain #30 08/12/20 mg tablet (Percocet) tabs docusate sodium 100 mg capsule 100 mg PO BID 30 days #60 caps 05/13/22 melatonin 3 mg/4 mL oral drops 3 mg (4 mL) PO BEDTIME PRN sleep 08/02/22 #60 mL magnesium citrate 300 ml PO DAILY PRN constipation 01/09/23 #296 mL nystatin 100,000 unit/mL oral 500,000 unit (5 mL) buccal QID 7 01/09/23 suspension days #140 mL polyethylene glycol 3350 17 17 g PO DAILY 14 days #238 grams 01/09/23 gram/dose oral powder (Miralax) dexlansoprazole 60 mg 60 mg PO BEDTIME #30 caps 02/22/23 capsule,biphase delayed release linaclotide 290 mcg capsule 290 mcg PO DAILY #30 caps 02/22/23 (Linzess) dicyclomine 20 mg tablet 20 mg PO TID PRN abdominal pain 06/07/23 #20 tabs Allergies Allergy/AdvReac Type Severity Reaction Status Date / Time No Known Allergies Allergy Verified 06/06/23 21:30 [No Known Allergies*] Review of Systems Review of Systems Yes all other systems are reviewed and are negative [facility] Past Medical History Medical History COVID-19 vaccine administered Arthritis History of BPH HTN (hypertension) GERD (gastroesophageal reflux disease) Hemorrhoids with complication Primary osteoarthritis of right hip Surgical History History of total right hip arthroplasty History of hemorrhoidectomy Hx of cataract extraction History of pterygium excision History of arthroplasty of left hip (11/09/16) History of prostate surgery (2004) History of colonoscopy History of esophagogastroduodenoscopy (EGD) Family History Family History Brother Diabetes Blind Social History Social History Household Members: None Are you a primary career development facilitator to a significant other at home: No Do you presently have visiting nurse or other home services: Yes ([facility]) Alcohol intake: current Alcohol intake frequency: a few times a week Alcohol type: beer Patient Tobacco Use Status: Never used Tobacco Use of substances other than those prescribed or required for medical reasons: Yes Substance Use Type: Marijuana Advance Directives: No Advance Directives Information Provided: Yes Current occupational status: disabled 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 Physical Exam ED Vital Signs: Vital Signs - 24 hr 06/06/23 21:21 06/07/23 02:11 06/07/23 03:37 Temperature 98.9 F 98.2 F 98.2 F Pulse Rate 53 62 62 Respiratory Rate 16 16 16 Blood Pressure 110/65 136/69 136/69 Pulse Oximetry 99 98 98 Oxygen Delivery Method Room Air Room Air Room Air BMI result Body Mass Index 29.3 Appearance: Alert. Oriented X3. No acute distress. Eyes: No pallor or icterus ENT: Pharynx normal. Oral Mucosa moist Neck: Normal inspection. Neck supple. CVS: Normal heart rate and rhythm. Pulses normal. Respiratory: No respiratory distress. Equal air entry bilateral, no wheezing/rales/rhonchi Abdomen: Soft and nontender. Bowel sounds are present, no mass palpable, no CVA tenderness Skin: Skin warm and dry. Normal skin color. Normal skin turgor. Extremities: No lower extremity edema. No calf tenderness Neuro: Oriented X 3. Medical Decision Making Medical Decision Making [facility] Narrative: Patient has chronic abdominal pain with diagnosis IBS previous colonoscopy normal comes here for similar abdominal discomfort taking Linzess 3 times a day instead of once which was advised by paid search marketing analyst not to take more than once a day also patient does not taking his Ambien which was prescribed also by his PCP yesterday Differential Diagnosis Differential Diagnoses: The differential diagnosis associated with the presentation includes Anxiety/IBS Lab Data [facility] Lab Attestation statement: I reviewed the patient's lab results. 06/06/23 21:40 06/06/23 21:40 Labs: Lab Results 06/06/23 Range/Units 21:40 WBC 4.9 (4.8-10.8) X10*3/uL RBC 3.72 L (4.60-5.80) X10*6/uL Hgb 11.9 L (14.0-18.0) g/dl Hct 34.8 L (42.0-52.0) % MCV 93.5 (80.0-98.0) fL MCH 32.0 (27.0-33.0) pg MCHC 34.2 (31.0-36.0) g/dl RDW 13.0 (11.0-16.0) % Plt Count 205 (160-400) X10*3/uL MPV 9.4 (9.4-12.4) fL Immature Gran % (Auto) 0.6 H (0.0-0.4) % Neut % (Auto) 34.7 L (45-73) % Lymph % (Auto) 50.8 H (20-40) % Benson % (Auto) 10.6 (2-11) % Eos % (Auto) 2.9 (0-4) % Baso % (Auto) 0.4 (0-2) % Lymph # (Auto) 2.5 (1.2-4.9) X10*3/uL Benson # (Auto) 0.5 (0.1-1.2) X10*3/uL Eos # (Auto) 0.1 (0.0-0.4) X10*3/uL Baso # (Auto) 0.0 (0.0-0.2) X10*3/uL Abs Immat Gran (auto) 0.03 (0.00-0.03) X10*3/uL Absolute Neuts (auto) 1.7 L (2.0-8.3) x10*3/uL Absolute Nucleated RBC 0.000 (0.0-0.012) X10*3/uL Nucleated RBC % (auto) 0.0 (0.0-0.2) /100WBC Sodium 144 (135-145) mmol/L Potassium 3.9 (3.3-5.1) mmol/L Chloride 111 H (96-108) mmol/L Carbon Dioxide 27 (22-29) mmol/L Anion Gap 10 L (12-20) BUN 16 (9-16) mg/dL Creatinine 0.98 (0.5-1.4) mg/dL Estim Creat Clear Calc 69.6 Estimated GFR > 60 Random Glucose 85 (60-115) mg/dL Calcium 9.5 D (8.4-10.2) mg/dL Total Bilirubin 0.4 (0.0-1.0) mg/dL AST 44 H (5-37) U/L ALT 95 H (0-40) U/L Alkaline Phosphatase 68 (39-117) U/L Total Protein 6.6 (6.5-8.0) g/dL Albumin 3.7 (3.5-5.0) g/dL Lipase 38 (8-78) U/L Medications Administered Discontinued Medications Generic Name Dose Route Start Last Admin Trade Name Freq PRN Reason Stop Dose Admin Dicyclomine HCl 20 mg 06/07/23 02:57 06/07/23 03:22 Dicyclomine Hcl 10 Mg Capsule PO 06/07/23 02:58 20 mg ONCE ONE Administration Discharge Plan Discharge Clinical Impression: Irritable bowel syndrome Patient Disposition: Home, Self-Care Instructions: Irritable Bowel Syndrome (ED) Additional Instructions: Drink plenty of fluids Take your Ambien as prescribed Dicyclomine 1 tablet 3 times a day as needed for abdominal cramps Prescriptions: New dicyclomine 20 mg tablet 20 mg PO TID PRN (Reason: abdominal pain) Qty: 20 0RF No Action oxycodone-acetaminophen [Percocet] 5-325 mg tablet 1 - 2 tab PO Q4-6H PRN (Reason: pain) Qty: 30 0RF paroxetine HCl 20 mg tablet 1 tab PO DAILY lisinopril 10 mg tablet 1 tab PO DAILY polyethylene glycol 3350 [Miralax] 17 gram/dose powder 17 g PO DAILY 14 Days Qty: 238 0RF magnesium citrate Solution 300 ml PO DAILY PRN (Reason: constipation) Qty: 296 0RF nystatin 100,000 unit/mL suspension 500,000 unit buccal QID 7 Days Qty: 140 0RF Rx Instructions: administer 1/2 of dose in each side of the mouth. swish and swallow melatonin 3 mg/4 mL drops 3 mg PO BEDTIME PRN (Reason: sleep) Qty: 60 0RF tamsulosin [Flomax] 0.4 mg capsule 0.4 mg PO BEDTIME (DME) walker Misc See Rx Instructions .MEDSUPPLY Qty: 1 0RF Rx Instructions: Folding Front wheeled walker tolterodine 4 mg capsule,extended release 24hr 4 mg PO QAM alfuzosin 10 mg tablet extended release 24 hr 10 mg PO BEDTIME docusate sodium 100 mg capsule 100 mg PO BID 30 Days Qty: 60 6RF zolpidem 10 mg tablet 10 mg PO BEDTIME atorvastatin 40 mg tablet 40 mg PO DAILY celecoxib 200 mg capsule 200 mg PO BID dexlansoprazole 60 mg capsule,biphase delayed releas 60 mg PO BEDTIME Qty: 30 6RF Linzess 290 mcg capsule 290 mcg PO DAILY Qty: 30 6RF Interventions: ED Discharge Assessment Last Done: 06/07/23 03:37 Discharge Date/Time: 06/07/23 03:39 Print Language: Icelandic
[2023-06-07] MEDS: Dicyclomine HCl 10 MG CAPSULE 20 MG PO (03:22)
[2023-06-07 03:37] VITALS: BP 136/69; PULSE 62; RESP 16; TEMP 36.8; O2SAT 98
== END 2023-06-07 03:39 | disposition home or self-care (01) ==
PROVIDERS: Emergency Provider Internal Medicine; PCP Internal Medicine
DX: K58.1 Irritable bowel syndrome with constipation (principal); F41.9 Anxiety disorder, unspecified; I10 Essential (primary) hypertension; Z79.899 Other long term (current) drug therapy
CPT/HCPCS: 36415; 74018; 80053; 83690; 85025; 99283; 99284

== ENCOUNTER 2023-06-09 14:22 | Outpatient (AMB) | payer OTHER, SELFPAY ==
--- NOTE | 2023-06-09 14:23 | MHC.OFFVIS ---
Vital Signs 06/09/23 14:25 Height 5 ft 6 in Weight 182 lb 15.739 oz BMI 29.5 BP 144/76 H Blood Pressure Location Lt brachial Position Sitting Pulse 59 Intake Visit Reasons: Abdominal Pain, Vomiting, Intake Note: Patient here for abd pain, vomiting that started last week. Went to the ER on Tuesday06-07-23. Patient c/o: Reports abd pain,vomiting better with dicyclomine. C/o constant bitter taste. Requesting colonoscopy. Electronic Equipment Set Up Operator Required: No Accompanied by: Self / Same As Patient Allergies No Known Allergies [No Known Allergies*] Allergy (Verified 06/09/23 14:32) HPI HPI Abdominal Pain, Vomiting,: Details: Assessment & Plan (1) Tubular adenoma of colon: Comment: 06/2022 scope equals 1 large TA repeat in 3 years Code(s): D12.6 - Benign neoplasm of colon, unspecified (2) GERD (gastroesophageal reflux disease): Code(s): K21.9 - Gastro-esophageal reflux disease without esophagitis (3) Chronic idiopathic constipation: Code(s): K59.04 - Chronic idiopathic constipation Plan [place] #Stephanie The procedure should be repeated in 3 years due to the large size of the polyp in the descending colon. The procedure was well tolerated. The results were explained and the patient is agreeable to the follow-up interval as stated. The bowel pattern has returned to normal. Education was provided to tell any 1st degree relatives about their findings to be sure that they are screened by age 45. Educated that they will be put on a recall list when it is time for their repeat scope but should they move out of state or away from the hospital they will need to remember along with their primary to repeat the procedure in a timely fashion to avoid any adverse complications. He continues on the Linzess and the Dexilant. THE RETURN OFFICE VISIT IN 6 MONTHS. Medications: Refilled dexlansoprazole 60 mg PO BEDTIME 30 caps 6RF linaclotide (Linzess) 290 mcg PO DAILY 30 caps 6RF ?XR abd 06/07/23 FINDINGS: Bowel gas pattern is nonobstructive. Limited evaluation for free air with supine positioning. Mild amount of stool is present. No suspicious calcifications are seen. Partially visualized bilateral hip arthroplasty hardware. Endplate osteophytes in the lumbar spine. Included lung bases appear well aerated. XR/XR KUB IMPRESSION: Nonobstructive bowel gas pattern. Mild volume of stool. TODAY'S VISIT ITALIAN #Zeferino He had vomiting that started about 3 times a week 1 weeks prior to the ER visit, but he is not vomiting now. He feels that this was r/t his severe CIC. He persists in taking more than 1 Linzess a day, and then will run out towards the end of the month. He admits that he had run out during this incident. He is unclear of what he is taking, AND THE REGLAN seems to have fallen off of his list. He seems to think that he is taking it, but he may have only taken it when he took the Linzess, thinking they needed to go together. I try to educate him to take this qid every day, but he says he is very forgetful but thinks he takes it tid. ROV 6 weeks. Please bring medications to the appt. [facility] Medical History COVID-19 vaccine administered Arthritis History of BPH HTN (hypertension) GERD (gastroesophageal reflux disease) Hemorrhoids with complication Primary osteoarthritis of right hip Surgical History History of total right hip arthroplasty History of hemorrhoidectomy Hx of cataract extraction History of pterygium excision History of arthroplasty of left hip (11/09/16) History of prostate surgery (2004) History of colonoscopy History of esophagogastroduodenoscopy (EGD) Family History Brother Diabetes Blind Social History Household Members: None Are you a primary gericare aide teacher to a significant other at home: No Do you presently have visiting nurse or other home services: Yes ([facility]) Alcohol intake: current Alcohol intake frequency: a few times a week Alcohol type: beer Patient Tobacco Use Status: Never used Tobacco Substance Use Type: Marijuana Current occupational status: disabled 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 Review of Systems Const Denies fatigue, Denies fever(s), Denies night sweats, Denies poor appetite and Denies weight loss ENT Reports Normal hearing present, Denies dental pain, Denies dysphagia, Denies hearing loss, Denies mouth pain, Denies odynophagia, Denies throat swelling, Denies tongue swelling and Reports other (Dentition adequate) Card Reports no additional complaints Resp Reports no additional complaints GI Details: Reports abdominal pain, Denies melena, Reports bloating, Denies hematochezia, Reports constipation, Denies GI cramping, Denies dysphagia, Denies excessive flatus, Denies early satiety, Reports heartburn, Denies diarrhea, Reports nausea, Denies odynophagia, Reports vomiting and Denies hematemesis Skin/Breast Denies pruritus, Denies lesions, Denies rash and Denies jaundice Neuro Reports Normal hearing present and Denies Abnormal speech present Endo Denies fatigue Aller/Immun Denies throat swelling and Denies tongue swelling Physical Exam Vital Signs: Last Vital Signs Pulse 59 06/09/23 14:25 BP 144/76 H 06/09/23 14:25 BMI result Body Mass Index 29.5 Const General: cooperative, no acute distress, well developed and well groomed Nutritional Appearance: well nourished and obese Orientation/consciousness: oriented to person, oriented to place and oriented to time Limitations: No language barrier and other limitations HEENT Head: Yes normocephalic and Yes atraumatic Eyes General: appearance normal, both eyes and all related structures Pupils: Equal, round and reactive pupils present Neck Neck: Yes normal visual inspection and Yes no lymphadenopathy Thyroid: Thyroid normal Resp Effort & Inspection: normal respiratory effort and able to speak in complete sentences Auscultation: clear to auscultation bilaterally Cardio Rate: regular rate Rhythm: regular rhythm Heart sounds: Normal, physiologic split S2 sound present Peripheral pulses: radial pulses present and posterior tibial pulses present GI Inspection: No distended, No Abdominal panniculus present and Yes obesity Palpation (GI): Soft to palpation, nontender, no guarding, not rigid and No hepatosplenomegaly present Percussion: Yes normal to percussion Auscultation: normal bowel sounds Rectal Exam - Male: Yes deferred Skin General skin exam: no rashes or lesions noted, turgor normal, skin not dry, no jaundice, No spider nevi and no striae Rashes: no rashes Nails: normal Neuro General: oriented to person, oriented to place and oriented to time Cranial nerves: Yes Equal, round and reactive pupils present and Yes Normal hearing present Speech: No Abnormal speech present Extrem General: Yes normal to inspection, No clubbing, No cyanosis and No edema Psych Appearance: grossly normal and well kempt Mental Status: mental status grossly normal Speech and movement: Normal speech and movement present Affect: normal affect Attitude: cooperative Thought process: Normal thought process present and not confabulating Thought content: Normal thought content present Insight: Poor insight present (Psych) Judgement: Poor judgement present (Psych) Assessment & Plan Assessment & Plan (1) GERD (gastroesophageal reflux disease): Code(s): K21.9 - Gastro-esophageal reflux disease without esophagitis Category: Medical (2) Chronic idiopathic constipation: Code(s): K59.04 - Chronic idiopathic constipation Category: Medical (3) Small bowel motility disorder: Code(s): K59.9 - Functional intestinal disorder, unspecified Category: Medical Plan ITALIAN #Zeferino He had vomiting that started about 3 times a week 1 weeks prior to the ER visit, but he is not vomiting now. He feels that this was r/t his severe CIC. He persists in taking more than 1 Linzess a day, and then will run out towards the end of the month. He admits that he had run out during this incident. He is unclear of what he is taking, AND THE REGLAN seems to have fallen off of his list. He seems to think that he is taking it, but he may have only taken it when he took the Linzess, thinking they needed to go together. I try to educate him to take this qid every day, but he says he is very forgetful but thinks he takes it tid. ROV 6 weeks. Please bring medications to the appt Medications: New metoclopramide HCl (Reglan) 10 mg PO QIDACHS 120 tabs 6RF K59.04 - Chronic idiopathic constipation, K59.9 - Functional intestinal disorder, unspecified
[2023-06-09 14:25] VITALS: BP 144/76; PULSE 59; BMI 29.5
== END 2023-06-09 14:59 | disposition home or self-care (01) ==
PROVIDERS: PCP Internal Medicine; Visit Provider Nurse Practitioner
DX: K21.9 Gastro-esophageal reflux disease without esophagitis (principal); K59.04 Chronic idiopathic constipation; K59.9 Functional intestinal disorder, unspecified
CPT/HCPCS: 99213

== ENCOUNTER → 2023-06-09 14:22 | Outpatient (BNVA) | payer OTHER, SELFPAY | PROVIDERS: PCP Internal Medicine; Visit Provider Nurse Practitioner | DX: K21.9 Gastro-esophageal reflux disease without esophagitis (principal); K59.04 Chronic idiopathic constipation; D12.6 Benign neoplasm of colon, unspecified | CPT/HCPCS: 99212 ==

== ENCOUNTER 2023-07-21 15:23 | Outpatient (AMB) | payer OTHER, SELFPAY ==
--- NOTE | 2023-07-21 15:26 | A.OFFVIS_ITS ---
Vital Signs 07/21/23 15:34 Height 5 ft 6 in Weight 175 lb 14.862 oz BMI 28.4 BP 109/67 Blood Pressure Location Rt brachial Position Sitting Intake Visit Reasons: 6 week follow up Intake Note: Eladio returns to in office visit today in follow up of CIC. CC: Patient c/o vomiting sometimes and abdominal pain.He c/o constipation and states that sometimes takes x3 Linzess and still takes time for him to have a BMs. Allergies No Known Allergies [No Known Allergies*] Allergy (Verified 07/21/23 15:40) HPI HPI 6 week follow up: Details: Assessment & Plan (1) Tubular adenoma of colon: Comment: 06/2022 scope equals 1 large TA repeat in 3 years Code(s): D12.6 - Benign neoplasm of colon, unspecified (2) GERD (gastroesophageal reflux disease): Code(s): K21.9 - Gastro-esophageal reflux disease without esophagitis (3) Chronic idiopathic constipation: Code(s): K59.04 - Chronic idiopathic constipation Plan [place] #Ana and Brian The procedure should be repeated in 3 years due to the large size of the polyp in the descending colon. The procedure was well tolerated. The results were explained and the patient is agreeable to the follow-up interval as stated. The bowel pattern has returned to normal. Education was provided to tell any 1st degree relatives about their findings to be sure that they are screened by age 45. Educated that they will be put on a recall list when it is time for their repeat scope but should they move out of state or away from the hospital they will need to remember along with their primary to repeat the procedure in a timely fashion to avoid any adverse complications. He continues on the Linzess and the Dexilant. THE RETURN OFFICE VISIT IN 6 MONTHS. Medications: Refilled dexlansoprazole 60 mg PO BEDTIME 30 caps 6RF linaclotide (Linzess) 290 mcg PO DAILY 30 caps 6RF ? TODAY'S VISIT [place] #Radha Live He continues on the Linzess and the Dexilant. He is also on colace and reglan to promote bowel motility. He is back to thinking that something is blocking my colon. He wants another colonoscopy because maybe the polyps have grown back. I try to explain that this is not possible, and that polyps are very slow growing. He says I can't wait many years or I will be too old. But doing another would be fruitless if we do not allow enough time for re growth. Also, this would not help the problem. He is also c/o a sour taste on his tongue despite repeated brushings. He does s eem to have a white coating on the tongue with some reddening, so I think attempting to treat thrush would be acceptable. HE is instructed to stop his atorvastatin during this therapy and then restart after completion to avoid myalgias. ROV 5 weeks. [facility] Medical History COVID-19 vaccine administered Arthritis History of BPH HTN (hypertension) GERD (gastroesophageal reflux disease) Hemorrhoids with complication Primary osteoarthritis of right hip Surgical History History of total right hip arthroplasty History of hemorrhoidectomy Hx of cataract extraction History of pterygium excision History of arthroplasty of left hip (11/09/16) History of prostate surgery (2004) History of colonoscopy History of esophagogastroduodenoscopy (EGD) Family History Brother Diabetes Blind Social History Household Members: None Are you a primary rental boats caretaker to a significant other at home: No Do you presently have visiting nurse or other home services: Yes ([facility]) Alcohol intake: current Alcohol intake frequency: a few times a week Alcohol type: beer Patient Tobacco Use Status: Never used Tobacco Substance Use Type: Marijuana Current occupational status: disabled 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 Review of Systems Const Denies fatigue, Denies fever(s), Denies night sweats, Denies poor appetite and Denies weight loss ENT Reports Normal hearing present, Reports halitosis, Denies dental pain, Denies dysphagia, Denies hearing loss, Denies mouth pain, Denies odynophagia, Denies throat swelling, Denies tongue swelling and Reports other (Dentition adequate) Card Reports no additional complaints Resp Reports no additional complaints GI Details: Denies abdominal pain, Denies melena, Reports bloating, Denies hematochezia, Reports constipation, Denies GI cramping, Denies dysphagia, Denies excessive flatus, Denies early satiety, Reports heartburn, Denies diarrhea, Denies nausea, Denies odynophagia, Denies vomiting and Denies hematemesis Skin/Breast Denies pruritus, Denies lesions, Denies rash and Denies jaundice Neuro Reports Normal hearing present and Denies Abnormal speech present Endo Denies fatigue Aller/Immun Denies throat swelling and Denies tongue swelling Physical Exam Vital Signs: Last Vital Signs BP 109/67 07/21/23 15:34 BMI result Body Mass Index 28.4 Const General: cooperative, no acute distress, well developed and well groomed Nutritional Appearance: well nourished and overweight Orientation/consciousness: oriented to person, oriented to place and oriented to time Limitations: language barrier HEENT Head: Yes normocephalic and Yes atraumatic Eyes General: appearance normal, both eyes and all related structures Pupils: Equal, round and reactive pupils present Neck Neck: Yes normal visual inspection and Yes no lymphadenopathy Thyroid: Thyroid normal Resp Effort & Inspection: normal respiratory effort and able to speak in complete sentences Auscultation: clear to auscultation bilaterally Cardio Rate: regular rate Rhythm: regular rhythm Heart sounds: Normal, physiologic split S2 sound present Peripheral pulses: radial pulses present and posterior tibial pulses present GI Inspection: No distended and No Abdominal panniculus present Palpation (GI): Soft to palpation, nontender, no guarding, not rigid and No hepatosplenomegaly present Percussion: Yes normal to percussion Auscultation: normal bowel sounds Rectal Exam - Male: Yes deferred Skin General skin exam: no rashes or lesions noted, turgor normal, skin not dry, no jaundice, No spider nevi and no striae Rashes: no rashes Nails: normal Neuro General: oriented to person, oriented to place and oriented to time Cranial nerves: Yes Equal, round and reactive pupils present and Yes Normal hearing present Speech: No Abnormal speech present Extrem General: Yes normal to inspection, No clubbing, No cyanosis and No edema Psych Appearance: grossly normal and well kempt Mental Status: mental status grossly normal Speech and movement: Normal speech and movement present Affect: normal affect Attitude: cooperative Thought process: Normal thought process present and not confabulating Thought content: Normal thought content present Insight: Limited insight present (Psych) Judgement: Limited judgement present (Psych) Assessment & Plan Assessment & Plan (1) Chronic idiopathic constipation: Code(s): K59.04 - Chronic idiopathic constipation Category: Medical (2) GERD (gastroesophageal reflux disease): Code(s): K21.9 - Gastro-esophageal reflux disease without esophagitis Category: Medical (3) Candidiasis of mouth and esophagus: Code(s): B37.81 - Candidal esophagitis; B37.0 - Candidal stomatitis Category: Medical Plan [place] #V Live He continues on the Linzess and the Dexilant. He is also on colace and reglan to promote bowel motility. He is back to thinking that something is blocking my colon. He wants another colonoscopy because maybe the polyps have grown back. I try to explain that this is not possible, and that polyps are very slow growing. He says I can't wait many years or I will be too old. But doing another would be fruitless if we do not allow enough time for re growth. Also, this would not help the problem. He is also c/o a sour taste on his tongue despite repeated brushings. He does seem to have a white coating on the tongue with some reddening, so I think attempting to treat thrush would be acceptable. HE is instructed to stop his atorvastatin during this therapy and then restart after completion to avoid myalgias. ROV 5 weeks. Medications: New fluconazole (Diflucan) 200 mg PO DAILY 14 tabs 0RF 14 days B37.81 - Candidal esophagitis, B37.0 - Candidal stomatitis Refilled linaclotide (Linzess) 290 mcg PO DAILY 30 caps 6RF docusate sodium 100 mg PO BID 60 caps 6RF 30 days dicyclomine 20 mg PO TID PRN 20 tabs 0RF abdominal pain metoclopramide HCl (Reglan) 10 mg PO QIDACHS 120 tabs 6RF K59.9 - Functional intestinal disorder, unspecified, K59.04 - Chronic idiopathic constipation dexlansoprazole 60 mg PO BEDTIME 30 caps 6RF Discontinued oxycodone-acetaminophen 5-325 mg Discontinued Reason: Patient Completed Course 1 - 2 tabs PO Q4-6H PRN 30 tabs 0RF pain nystatin administer 1/2 of dose in each side of the mouth. swish and swallow Discontinued Reason: Patient Completed Course 500,000 units (5 mL) buccal QID 7 days 140 mL 0RF Coding Level of Care Code Est Pt Level 3 (17086) Diagnoses Chronic idiopathic constipation K59.04 GERD (gastroesophageal reflux disease) K21.9 Candidiasis of mouth and esophagus B37.81; B37.0
[2023-07-21 15:34] VITALS: BP 109/67; BMI 28.4
== END 2023-07-21 16:26 | disposition home or self-care (01) ==
PROVIDERS: PCP Internal Medicine; Visit Provider Nurse Practitioner
DX: K59.04 Chronic idiopathic constipation (principal); K21.9 Gastro-esophageal reflux disease without esophagitis; B37.81 Candidal esophagitis; B37.0 Candidal stomatitis
CPT/HCPCS: 99213

== ENCOUNTER → 2023-07-21 15:23 | Outpatient (BNVA) | payer OTHER, SELFPAY | PROVIDERS: PCP Internal Medicine; Visit Provider Nurse Practitioner | DX: K59.04 Chronic idiopathic constipation (principal); K21.9 Gastro-esophageal reflux disease without esophagitis; B37.81 Candidal esophagitis; B37.0 Candidal stomatitis | CPT/HCPCS: 99212 ==

== ENCOUNTER 2023-08-24 15:53 | Outpatient (AMB) | payer OTHER, SELFPAY ==
[2023-08-24 15:55] VITALS: BP 118/75; PULSE 90; BMI 28.7
--- NOTE | 2023-08-24 15:55 | MHC.OFFVIS ---
Vital Signs 08/24/23 15:55 Height 5 ft 6 in Weight 177 lb 11.081 oz BMI 28.7 BP 118/75 Blood Pressure Location Lt brachial Position Sitting Pulse 90 Intake Visit Reasons: Follow up 5 weeks Intake Note: Eladio returns to in office follow up of CIC. CC: Patient states that he has been doing better from constipation but is having a lot of heartburn. He is requesting to get Nexium for GERD. Blueberry Grower Required: Yes Accompanied by: Self / Same As Patient Allergies No Known Allergies [No Known Allergies*] Allergy (Verified 08/24/23 15:56) HPI HPI Follow up 5 weeks: Details: Assessment & Plan (1) Chronic idiopathic constipation: Code(s): K59.04 - Chronic idiopathic constipation Category: Medical (2) GERD (gastroesophageal reflux disease): Code(s): K21.9 - Gastro-esophageal reflux disease without esophagitis Category: Medical (3) Candidiasis of mouth and esophagus: Code(s): B37.81 - Candidal esophagitis; B37.0 - Candidal stomatitis Category: Medical Plan [place] #V Live He continues on the Linzess and the Dexilant. He is also on colace and reglan to promote bowel motility. He is back to thinking that something is blocking my colon. He wants another colonoscopy because maybe the polyps have grown back. I try to explain that this is not possible, and that polyps are very slow growing. He says I can't wait many years or I will be too old. But doing another would be fruitless if we do not allow enough time for re growth. Also, this would not help the problem. He is also c/o a sour taste on his tongue despite repeated brushings. He does seem to have a white coating on the tongue with some reddening, so I think attempting to treat thrush would be acceptable. HE is instructed to stop his atorvastatin during this therapy and then restart after completion to avoid myalgias. ROV 5 weeks. Medications: New fluconazole (Diflucan) 200 mg PO DAILY 14 tabs 0RF 14 days B37.81 - Candidal esophagitis, B37.0 - Candidal stomatitis Refilled linaclotide (Linzess) 290 mcg PO DAILY 30 caps 6RF docusate sodium 100 mg PO BID 60 caps 6RF 30 days dicyclomine 20 mg PO TID PRN 20 tabs 0RF abdominal pain metoclopramide HCl (Reglan) 10 mg PO QIDACHS 120 tabs 6RF K59.9 - Functional intestinal disorder, unspecified, K59.04 - Chronic idiopathic constipation dexlansoprazole 60 mg PO BEDTIME 30 caps 6RF Discontinued oxycodone-acetaminophen 5-325 mg Discontinued Reason: Patient Completed Course 1 - 2 tabs PO Q4-6H PRN 30 tabs 0RF pain nystatin administer 1/2 of dose in each side of the mouth. swish and swallow Discontinued Reason: Patient Completed Course 500,000 units (5 mL) buccal QID 7 days 140 mL 0RF ? TODAY'S VISIT [facility]ONE[facility] #Tobi Akhtar He continues on the Linzess and the Dexilant. He is also on colace and reglan to promote bowel motility. He says that 3 days ago he started moving his bowels well, he credits the Linzess. He says he wants to try something different from Dexilant as it is not helping his HB. He has failed famotidine, omeprazole, pantoprazole, and dexilant so we will try for Nexium. He continues on Linzess 290, colace bid, reglan 10mg qid. ROV 8 weeks. [facility] Medical History COVID-19 vaccine administered Arthritis History of BPH HTN (hypertension) GERD (gastroesophageal reflux disease) Hemorrhoids with complication Primary osteoarthritis of right hip Surgical History History of total right hip arthroplasty History of hemorrhoidectomy Hx of cataract extraction History of pterygium excision History of arthroplasty of left hip (11/09/16) History of prostate surgery (2004) History of colonoscopy History of esophagogastroduodenoscopy (EGD) Family History Brother Diabetes Blind Social History (Reviewed 07/03/24 @ 15:59 by MASTER Camejo Household Members: None Are you a primary hearing care professional to a significant other at home: No Do you presently have visiting nurse or other home services: Yes ([facility]) Alcohol intake: current Alcohol intake frequency: a few times a week Alcohol type: beer Patient Tobacco Use Status: Never used Tobacco Substance Use Type: Marijuana Current occupational status: disabled 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 Review of Systems Const Denies fatigue, Denies fever(s), Denies night sweats, Denies poor appetite and Denies weight loss ENT Reports Normal hearing present, Denies dental pain, Denies dysphagia, Denies hearing loss, Denies mouth pain, Denies odynophagia, Denies throat swelling, Denies tongue swelling and Reports other (Dentition adequate) Card Reports no additional complaints Resp Reports no additional complaints GI Details: Denies abdominal pain, Denies melena, Denies bloating, Denies hematochezia, Reports constipation, Denies GI cramping, Denies dysphagia, Denies excessive flatus, Denies early satiety, Reports heartburn, Denies diarrhea, Denies nausea, Denies odynophagia, Denies vomiting and Denies hematemesis Skin/Breast Denies pruritus, Denies lesions, Denies rash and Denies jaundice Neuro Reports Normal hearing present and Denies Abnormal speech present Endo Denies fatigue Aller/Immun Denies throat swelling and Denies tongue swelling Physical Exam Vital Signs: Last Vital Signs Pulse 90 08/24/23 15:55 BP 118/75 08/24/23 15:55 BMI result Body Mass Index 28.7 Const General: cooperative, no acute distress, well developed and well groomed Nutritional Appearance: well nourished and obese centrally obese Orientation/consciousness: oriented to person, oriented to place and oriented to time Limitations: language barrier and other limitations HEENT Head: Yes normocephalic and Yes atraumatic Eyes General: appearance normal, both eyes and all related structures Pupils: Equal, round and reactive pupils present Neck Neck: Yes normal visual inspection and Yes no lymphadenopathy Thyroid: Thyroid normal Resp Effort & Inspection: normal respiratory effort and able to speak in complete sentences Auscultation: clear to auscultation bilaterally Cardio Rate: regular rate Rhythm: regular rhythm Heart sounds: Normal, physiologic split S2 sound present Peripheral pulses: radial pulses present and posterior tibial pulses present GI Inspection: No distended, No Abdominal panniculus present and Yes obesity Palpation (GI): Soft to palpation, nontender, no guarding, not rigid and No hepatosplenomegaly present Percussion: Yes normal to percussion Auscultation: normal bowel sounds Rectal Exam - Male: Yes deferred Skin General skin exam: no rashes or lesions noted, turgor normal, skin not dry, no jaundice, No spider nevi and no striae Rashes: no rashes Nails: normal Neuro General: oriented to person, oriented to place and oriented to time Cranial nerves: Yes Equal, round and reactive pupils present and Yes Normal hearing present Speech: No Abnormal speech present Extrem General: Yes normal to inspection, No clubbing, No cyanosis and No edema Psych Appearance: grossly normal and well kempt Mental Status: mental status grossly normal Speech and movement: Normal speech and movement present Affect: normal affect Attitude: cooperative Thought process: Circumstantial thought process present and not confabulating Thought content: Normal thought content present Insight: Limited insight present (Psych) Judgement: Limited judgement present (Psych) Assessment & Plan Assessment & Plan (1) GERD (gastroesophageal reflux disease): Code(s): K21.9 - Gastro-esophageal reflux disease without esophagitis Category: Medical Plan [facility] #Tobi Live He continues on the Linzess and the Dexilant. He is also on colace and reglan to promote bowel motility. He says that 3 days ago he started moving his bowels well, he credits the Linzess. He says he wants to try something different from Dexilant as it is not helping his HB. He has failed famotidine, omeprazole, pantoprazole, and dexilant so we will try for Nexium. He continues on Linzess 290, colace bid, reglan 10mg qid. ROV 8 weeks. Medications: New esomeprazole magnesium 40 mg PO BID 60 caps 6RF K21.9 - Gastro-esophageal reflux disease without esophagitis Refilled docusate sodium 100 mg PO BID 60 caps 6RF 30 days linaclotide (Linzess) 290 mcg PO DAILY 30 caps 6RF metoclopramide HCl (Reglan) 10 mg PO QIDACHS 120 tabs 6RF K59.04 - Chronic idiopathic constipation, K59.9 - Functional intestinal disorder, unspecified polyethylene glycol 3350 (Miralax) 17 grams PO DAILY 238 grams 0RF 14 days Discontinued magnesium citrate Discontinued Reason: Doctor's Order 300 mL PO DAILY PRN 296 mL 0RF constipation fluconazole (Diflucan) Discontinued Reason: Doctor's Order 200 mg PO DAILY 14 days 14 tabs 0RF B37.0 - Candidal stomatitis, B37.81 - Candidal esophagitis On Hold dexlansoprazole Hold Comment: Doctor's Order 60 mg PO BEDTIME 30 caps 6RF Coding Level of Care Code Est Pt Level 3 (38149) Diagnoses GERD (gastroesophageal reflux disease) K21.9
== END 2023-08-24 16:31 | disposition home or self-care (01) ==
LOC: HO.HGI 15:53
PROVIDERS: PCP Internal Medicine; Visit Provider Nurse Practitioner
DX: K21.9 Gastro-esophageal reflux disease without esophagitis (principal)
CPT/HCPCS: 99213

== ENCOUNTER → 2023-08-24 15:53 | Outpatient (BNVA) | payer OTHER, SELFPAY | PROVIDERS: PCP Internal Medicine; Visit Provider Nurse Practitioner | DX: K21.9 Gastro-esophageal reflux disease without esophagitis (principal); K59.04 Chronic idiopathic constipation; Z79.899 Other long term (current) drug therapy | CPT/HCPCS: 99212 ==

== ENCOUNTER 2023-10-19 16:28 | Outpatient (AMB) | payer OTHER, SELFPAY ==
[2023-10-19 16:30] VITALS: BMI 28.5
--- NOTE | 2023-10-19 16:30 | A.OFFVIS_ITS ---
Vital Signs 10/19/23 16:30 Height 5 ft 6 in Weight 176 lb 12.972 oz BMI 28.5 Intake Visit Reasons: 8 week follow up Intake Note: Eladio returns to in office follow up of [facility]. CC: Patient states that he continues to have trouble having a BM. Per patient he has taken up to x3 Linzess and still has to wait to go to have a BM. Analyst Business Analysis Required: Yes Accompanied by: Self / Same As Patient Allergies No Known Allergies [No Known Allergies*] Allergy (Verified 10/19/23 16:34) HPI HPI 8 week follow up: Details: Assessment & Plan (1) Chronic idiopathic constipation: Code(s): K59.04 - Chronic idiopathic constipation Category: Medical (2) GERD (gastroesophageal reflux disease): Code(s): K21.9 - Gastro-esophageal reflux disease without esophagitis Category: Medical (3) Candidiasis of mouth and esophagus: Code(s): B37.81 - Candidal esophagitis; B37.0 - Candidal stomatitis Category: Medical Plan [place] #V Live He continues on the Linzess and the Dexilant. He is also on colace and reglan to promote bowel motility. He is back to thinking that something is blocking my colon. He wants another colonoscopy because maybe the polyps have grown back. I try to explain that this is not possible, and that polyps are very slow growing. He says I can't wait many years or I will be too old. But doing another would be fruitless if we do not allow enough time for re growth. Also, this would not help the problem. He is also c/o a sour taste on his tongue despite repeated brushings. He does seem to have a white coating on the tongue with some reddening, so I think attempting to treat thrush would be acceptable. HE is instructed to stop his atorvastatin during this therapy and then restart after completion to avoid myalgias. ROV 5 weeks. Medications: New fluconazole (Diflucan) 200 mg PO DAILY 14 tabs 0RF 14 days B37.81 - Candidal esophagitis, B37.0 - Candidal stomatitis Refilled linaclotide (Linzess) 290 mcg PO DAILY 30 caps 6RF docusate sodium 100 mg PO BID 60 caps 6RF 30 days dicyclomine 20 mg PO TID PRN 20 tabs 0RF abdominal pain metoclopramide HCl (Reglan) 10 mg PO QIDACHS 120 tabs 6RF K59.9 - Functional intestinal disorder, unspecified, K59.04 - Chronic idiopathic constipation dexlansoprazole 60 mg PO BEDTIME 30 caps 6RF Discontinued oxycodone-acetaminophen 5-325 mg Discontinued Reason: Patient Completed Course 1 - 2 tabs PO Q4-6H PRN 30 tabs 0RF pain nystatin administer 1/2 of dose in each side of the mouth. swish and swallow Discontinued Reason: Patient Completed Course 500,000 units (5 mL) buccal QID 7 days 140 mL 0RF TODAY'S VISIT [place] #Shantel LICEA He says that he received the diflucan and took it for 14 days w/o any resolution of the white tongue that plagues him. He has had increased trouble moving his bowels again, and took 4 Linzess yesterday and did not move his bowels until today. He is quite concerned. At this point since he has failed all OTC's, Trulance, Amitiza and now high dose LInzess with reglan as an adjunct I will progress him to Ibsrela 5 0mg bid. ROV 4 weeks. [facility] Medical History COVID-19 vaccine administered Arthritis History of BPH HTN (hypertension) GERD (gastroesophageal reflux disease) Hemorrhoids with complication Primary osteoarthritis of right hip Surgical History History of total right hip arthroplasty History of hemorrhoidectomy Hx of cataract extraction History of pterygium excision History of arthroplasty of left hip (11/09/16) History of prostate surgery (2004) History of colonoscopy History of esophagogastroduodenoscopy (EGD) Family History Brother Diabetes Blind Social History Household Members: None Are you a primary post acute care registered nurse to a significant other at home: No Do you presently have visiting nurse or other home services: Yes ([facility]) Alcohol intake: current Alcohol intake frequency: a few times a week Alcohol type: beer Patient Tobacco Use Status: Never used Tobacco Substance Use Type: Marijuana Current occupational status: disabled 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 Review of Systems Const Denies fatigue, Denies fever(s), Denies night sweats, Denies poor appetite and Denies weight loss ENT Reports Normal hearing present, Denies dental pain, Denies dysphagia, Denies hearing loss, Denies mouth pain, Denies odynophagia, Denies throat swelling, Denies tongue swelling and Reports other (Dentition adequate) Card Reports no additional complaints Resp Reports no additional complaints GI Details: Denies abdominal pain, Denies melena, Reports bloating, Denies hematochezia, Reports constipation, Denies GI cramping, Denies dysphagia, Denies excessive flatus, Denies early satiety, Reports heartburn, Denies diarrhea, Denies nausea, Denies odynophagia, Denies vomiting and Denies hematemesis Skin/Breast Denies pruritus, Denies lesions, Denies rash and Denies jaundice Neuro Reports Normal hearing present and Denies Abnormal speech present Endo Denies fatigue Aller/Immun Denies throat swelling and Denies tongue swelling Physical Exam Vital Signs: BMI result Body Mass Index 28.5 Const General: cooperative, no acute distress, well developed and well groomed Nutritional Appearance: well nourished and obese Orientation/consciousness: oriented to person, oriented to place and oriented to time Limitations: No language barrier HEENT Head: Yes normocephalic and Yes atraumatic Eyes General: appearance normal, both eyes and all related structures Pupils: Equal, round and reactive pupils present Neck Neck: Yes normal visual inspection and Yes no lymphadenopathy Thyroid: Thyroid normal Resp Effort & Inspection: normal respiratory effort and able to speak in complete sentences Auscultation: clear to auscultation bilaterally Cardio Rate: regular rate Rhythm: regular rhythm Heart sounds: Normal, physiologic split S2 sound present Peripheral pulses: radial pulses present and posterior tibial pulses present GI Inspection: No distended, No Abdominal panniculus present and Yes obesity Palpation (GI): Soft to palpation, nontender, no guarding, not rigid and No hepatosplenomegaly present Percussion: Yes normal to percussion Auscultation: normal bowel sounds Rectal Exam - Male: Yes deferred Skin General skin exam: no rashes or lesions noted, turgor normal, skin not dry, no jaundice, No spider nevi and no striae Rashes: no rashes Nails: normal Neuro General: oriented to person, oriented to place and oriented to time Cranial nerves: Yes Equal, round and reactive pupils present and Yes Normal hearing present Speech: No Abnormal speech present Extrem General: Yes normal to inspection, No clubbing, No cyanosis and No edema Psych Appearance: grossly normal and well kempt Mental Status: mental status grossly normal Speech and movement: Normal speech and movement present Affect: normal affect Attitude: cooperative Thought process: Normal thought process present and not confabulating Thought content: Normal thought content present Insight: Limited insight present (Psych) and Poor insight present (Psych) Judgement: Limited judgement present (Psych) and Poor judgement present (Psych) Assessment & Plan Assessment & Plan (1) Chronic idiopathic constipation: Code(s): K59.04 - Chronic idiopathic constipation Category: Medical (2) Small bowel motility disorder: Code(s): K59.9 - Functional intestinal disorder, unspecified Category: Medical Plan [place] #Shantel LICEA He says that he received the diflucan and took it for 14 days w/o any resolution of the white tongue that plagues him. He has had increased trouble moving his bowels again, and took 4 Linzess yesterday and did not move his bowels until today. He is quite concerned. At this point since he has failed all OTC's, Trulance, Amitiza and now high dose LInzess with reglan as an adjunct I will progress him to Ibsrela 5 0mg bid. ROV 4 weeks. Medications: New tenapanor (Ibsrela) must administer immediately before first meal of day/breakfast and dinner 50 mg PO BID 60 tabs 6RF K59.04 - Chronic idiopathic constipation, K59.9 - Functional intestinal disorder, unspecified On Hold linaclotide (Linzess) Hold Comment: Doctor's Order 290 mcg PO DAILY 30 caps 6RF Coding Level of Care Code Est Pt Level 3 (72921) Diagnoses Chronic idiopathic constipation K59.04 Small bowel motility disorder K59.9
== END 2023-10-19 16:50 | disposition home or self-care (01) ==
PROVIDERS: PCP Internal Medicine; Visit Provider Nurse Practitioner
DX: K59.04 Chronic idiopathic constipation (principal); K59.9 Functional intestinal disorder, unspecified
CPT/HCPCS: 99213

== ENCOUNTER → 2023-10-19 16:28 | Outpatient (BNVA) | payer OTHER, SELFPAY | PROVIDERS: PCP Internal Medicine; Visit Provider Nurse Practitioner | DX: K59.04 Chronic idiopathic constipation (principal); K21.9 Gastro-esophageal reflux disease without esophagitis; K59.9 Functional intestinal disorder, unspecified | CPT/HCPCS: 99212 ==

== ENCOUNTER 2023-11-16 16:27 | Outpatient (AMB) | payer OTHER, SELFPAY ==
--- NOTE | 2023-11-16 16:31 | A.OFFVIS_ITS ---
Vital Signs 11/16/23 16:33 Height 5 ft 6 in Weight 176 lb 5.917 oz BMI 28.5 BP 128/74 Blood Pressure Location Lt brachial Position Sitting Pulse 89 Intake Visit Reasons: Follow up 4 weeks Intake Note: Patient in office today CC: Patient reports that the Linzess works better than the tenapanor. He also c/o abdominal pain sometimes. Office Supervisor Required: Yes Accompanied by: Self / Same As Patient Allergies No Known Allergies [No Known Allergies*] Allergy (Verified 11/16/23 16:39) HPI HPI Follow up 4 weeks: Details: Assessment & Plan (1) Chronic idiopathic constipation: Code(s): K59.04 - Chronic idiopathic constipation Category: Medical (2) Small bowel motility disorder: Code(s): K59.9 - Functional intestinal disorder, unspecified Category: Medical Plan [place] #Shantel LICEA He says that he received the diflucan and took it for 14 days w/o any resolution of the white tongue that plagues him. He has had increased trouble moving his bowels again, and took 4 Linzess yesterday and did not move his bowels until today. He is quite concerned. At this point since he has failed all OTC's, Trulance, Amitiza and now high dose LInzess with reglan as an adjunct I will progress him to Ibsrela 5 0mg bid. ROV 4 weeks. Medications: New tenapanor (Ibsrela) must administer immediately before first meal of day/breakfast and dinner 50 mg PO BID 60 tabs 6RF K59.04 - Chronic idiopathic constipation, K59.9 - Functional intestinal disorder, unspecified On Hold linaclotide (Linzess) Hold Comment: Doctor's Order 290 mcg PO DAILY 30 caps 6RF ? TODAY'S VISIT [place] #V as no automobile service station attendant available. He says that the Ibsrela did not work. He feels that the LInzess works better. He wants another test and since he had a normal small bowel follow through and colonoscopy, I think an anorectal manometry is in order - but we do not perform this at this facility. I will refer him to [facility] since he can't drive to [place]. Also trying to send bisacodyl with his Linzess 290 mcg. He continues on his reglan 10mg qid, generic Nexium twice a day since his insurance is declining Dexilant, colace. He also has MiraLax on record for his constipation but he does not feel that works well. ROV 8 weeks to [facility] Medical History Pre-op examination COVID-19 vaccine administered Arthritis History of BPH HTN (hypertension) GERD (gastroesophageal reflux disease) Hemorrhoids with complication Primary osteoarthritis of right hip Surgical History History of total right hip arthroplasty History of hemorrhoidectomy Hx of cataract extraction History of pterygium excision History of arthroplasty of left hip (11/09/16) History of prostate surgery (2004) History of colonoscopy History of esophagogastroduodenoscopy (EGD) Family History Brother Diabetes Blind Social History Household Members: None Are you a primary health care attorney to a significant other at home: No Do you presently have visiting nurse or other home services: Yes (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 Review of Systems Const Denies fatigue, Denies fever(s), Denies night sweats, Denies poor appetite and Denies weight loss ENT Reports Normal hearing present, Denies dental pain, Denies dysphagia, Denies hearing loss, Denies mouth pain, Denies odynophagia, Denies throat swelling, Denies tongue swelling and Reports other (Dentition adequate) Card Reports no additional complaints Resp Reports no additional complaints GI Details: Denies abdominal pain, Denies melena, Reports bloating, Denies hematochezia, Reports constipation, Denies GI cramping, Denies dysphagia, Denies excessive flatus, Denies early satiety, Reports dyspepsia, Reports heartburn, Denies diarrhea, Denies nausea, Denies odynophagia, Denies vomiting and Denies hematemesis Skin/Breast Denies pruritus, Denies lesions, Denies rash and Denies jaundice Neuro Reports Normal hearing present and Denies Abnormal speech present Endo Denies fatigue Aller/Immun Denies throat swelling and Denies tongue swelling Physical Exam Vital Signs: Last Vital Signs Pulse 89 11/16/23 16:33 BP 128/74 11/16/23 16:33 BMI result Body Mass Index 28.5 Const General: cooperative, no acute distress, well developed and well groomed Nutritional Appearance: well nourished and obese centrally obese Orientation/consciousness: oriented to person, oriented to place and oriented to time Limitations: language barrier and other limitations HEENT Head: Yes normocephalic and Yes atraumatic Eyes General: appearance normal, both eyes and all related structures Pupils: Equal, round and reactive pupils present Neck Neck: Yes normal visual inspection and Yes no lymphadenopathy Thyroid: Thyroid normal Resp Effort & Inspection: normal respiratory effort and able to speak in complete sentences Auscultation: clear to auscultation bilaterally Cardio Rate: regular rate Rhythm: regular rhythm Heart sounds: Normal, physiologic split S2 sound present Peripheral pulses: radial pulses present and posterior tibial pulses present GI Inspection: No distended, No Abdominal panniculus present and Yes obesity Palpation (GI): Soft to palpation, nontender, no guarding, not rigid and No hepatosplenomegaly present Percussion: Yes normal to percussion Auscultation: normal bowel sounds Rectal Exam - Male: Yes deferred Skin General skin exam: no rashes or lesions noted, turgor normal, skin not dry, no jaundice, No spider nevi and no striae Rashes: no rashes Nails: normal Neuro General: oriented to person, oriented to place and oriented to time Cranial nerves: Yes Equal, round and reactive pupils present and Yes Normal hearing present Speech: No Abnormal speech present Extrem General: Yes normal to inspection, No clubbing, No cyanosis and No edema Psych Appearance: grossly normal and well kempt Mental Status: mental status grossly normal Speech and movement: Normal speech and movement present Affect: normal affect Attitude: cooperative Thought process: Circumstantial thought process present and not confabulating Thought content: Normal thought content present Insight: Limited insight present (Psych) Judgement: Limited judgement present (Psych) Assessment & Plan Assessment & Plan (1) Chronic idiopathic constipation: Code(s): K59.04 - Chronic idiopathic constipation Category: Medical (2) GERD (gastroesophageal reflux disease): Code(s): K21.9 - Gastro-esophageal reflux disease without esophagitis Category: Medical (3) Small bowel motility disorder: Code(s): K59.9 - Functional intestinal disorder, unspecified Category: Medical Plan [place] #V as no automobile service station attendant available. He says that the Ibsrela did not work. He feels that the LInzess works better. He wants another test and since he had a normal small bowel follow through and colonoscopy, I think an anorectal manometry is in order - but we do not perform this at this facility. I will refer him to [facility] since he can't drive to [place]. Also trying to send bisacodyl with his Linzess 290 mcg. He continues on his reglan 10mg qid, generic Nexium twice a day since his insurance is declining Dexilant, colace. He also has MiraLax on record for his constipation but he does not feel that works well. ROV 8 weeks to [facility] Orders: Referrals Gastroenterology Referral K59.04 - Chronic idiopathic constipation Medications: New bisacodyl (Dulcolax (bisacodyl)) 10 mg (2 x 5 mg) PO BEDTIME 60 tabs 6RF 30 days Refilled metoclopramide HCl (Reglan) 10 mg PO QIDACHS 120 tabs 6RF K59.04 - Chronic idiopathic constipation, K59.9 - Functional intestinal disorder, unspecified Discontinued tenapanor (Ibsrela) must administer immediately before first meal of day/breakfast and dinner Discontinued Reason: Doctor's Order 50 mg PO BID 60 tabs 6RF K59.04 - Chronic idiopathic constipation, K59.9 - Functional intestinal disorder, unspecified Resumed linaclotide (Linzess) 290 mcg PO DAILY 30 caps 6RF Coding Level of Care Code Est Pt Level 3 (82578) Diagnoses Chronic idiopathic constipation K59.04 GERD (gastroesophageal reflux disease) K21.9 Small bowel motility disorder K59.9
[2023-11-16 16:33] VITALS: BP 128/74; PULSE 89; BMI 28.5
== END 2023-11-16 17:18 | disposition home or self-care (01) ==
PROVIDERS: PCP Internal Medicine; Visit Provider Nurse Practitioner
DX: K59.04 Chronic idiopathic constipation (principal); K21.9 Gastro-esophageal reflux disease without esophagitis; K59.9 Functional intestinal disorder, unspecified
CPT/HCPCS: 99213

== ENCOUNTER → 2023-11-16 16:27 | Outpatient (BNVA) | payer MEDICARE, SELFPAY | PROVIDERS: PCP Internal Medicine; Visit Provider Nurse Practitioner | DX: K59.04 Chronic idiopathic constipation (principal); K59.9 Functional intestinal disorder, unspecified; K21.9 Gastro-esophageal reflux disease without esophagitis | CPT/HCPCS: 99212 ==

== ENCOUNTER 2024-06-04 22:25 | Emergency (ER) | payer OTHER, SELFPAY ==
[2024-06-04 22:45] VITALS: BP 127/62; PULSE 60; RESP 14; TEMP 36.2; O2SAT 98; BMI 27.9
[2024-06-05 07:34] LABS: MANUAL DIFF FLAG NO
[2024-06-05 07:41] LABS: Basophils Percent Auto 0.6 % (0-2); Eosinophils Absolute Auto 0.2 X10*3/uL (0.0-0.4); Eosinophils Percent Auto 3.8 % (0-4); Hematocrit 35.1 % (42.0-52.0); Hemoglobin 12.1 g/dl (14.0-18.0); Imm Gran Abs Auto 0.02 X10*3/uL (0.00-0.03); Imm Gran Pct Auto 0.4 % (0.0-0.4); Lymphocytes Absolute Auto 2.3 X10*3/uL (1.2-4.9); Lymphocytes Percent Auto 43.4 % (20-40); Mean Corpuscular HGB Conc 34.5 g/dl (31.0-36.0); Mean Corpuscular Hemoglobin 32.4 pg (27.0-33.0); Mean Corpuscular Volume 94.1 fL (80.0-98.0); Mean Platelet Volume 9.7 fL (9.4-12.4); Monocytes Absolute Auto 0.4 X10*3/uL (0.1-1.2); Monocytes Percent Auto 8.1 % (2-11); Neutrophils Absolute Auto 2.3 x10*3/uL (2.0-8.3); Neutrophils Percent Auto 43.7 % (45-73); Platelet Count 184 X10*3/uL (160-400); Red Blood Count 3.73 X10*6/uL (4.60-5.80); Red Cell Distribution Width 14.3 % (11.0-16.0); White Blood Count 5.3 X10*3/uL (4.8-10.8)
--- NOTE | 2024-06-05 07:44 | ED.GENADULT ---
HPI - General Adult General Chief complaint: Dental/Oral Stated complaint: has a bad/dry taste in his mouth doesnt go away Time Seen by Provider: 06/05/24 07:10 Source: patient Mode of arrival: ambulatory History of Present Illness HPI narrative: This is a 74 years old male presented to emergency department with chief complaint of lost taste in the mouth for about a month, also complaining of pain in the tongue. No other symptoms no chest pain no shortness of breath no fever no vomiting. Onset (ago): month(s) Radiation: non-radiation Severity: moderate Quality: burning Pain Consistency: constant Relieving factors: none Associated symptoms: denies other symptoms Related Data Home Medications ?Medication ?Instructions ?Recorded ?Confirmed tamsulosin 0.4 mg capsule (Flomax) 0.4 mg PO BEDTIME 12/07/19 07/15/22 paroxetine HCl 20 mg tablet 1 tab PO DAILY 09/18/20 07/15/22 atorvastatin 40 mg tablet 40 mg PO DAILY 07/09/21 07/15/22 zolpidem 10 mg tablet 10 mg PO BEDTIME 07/09/21 07/15/22 celecoxib 200 mg capsule 200 mg PO BID 10/09/21 07/15/22 alfuzosin 10 mg tablet,extended 10 mg PO BEDTIME 05/13/22 07/15/22 release 24 hr tolterodine 4 mg capsule,extended 4 mg PO QAM 05/13/22 07/15/22 release 24 hr lisinopril 20 mg tablet 20 mg PO QAM 07/21/23 Previous Rx's ?Medication ?Instructions ?Recorded walker #1 ea 12/07/19 melatonin 3 mg/4 mL oral drops 3 mg (4 mL) PO BEDTIME PRN sleep 08/02/22 #60 mL dexlansoprazole 60 mg 60 mg PO BEDTIME #30 caps 07/21/23 capsule,biphase delayed release dicyclomine 20 mg tablet 20 mg PO TID PRN abdominal pain 07/21/23 #20 tabs docusate sodium 100 mg capsule 100 mg PO BID 30 days #60 caps 08/24/23 linaclotide 290 mcg capsule 290 mcg PO DAILY #30 caps 08/24/23 (Linzess) polyethylene glycol 3350 17 17 g PO DAILY 14 days #238 grams 08/24/23 gram/dose oral powder (Miralax) bisacodyl 5 mg tablet,delayed 10 mg (2 x 5 mg) PO BEDTIME 30 11/16/23 release (Dulcolax (bisacodyl)) days #60 tabs metoclopramide HCl 10 mg tablet 10 mg PO QIDACHS #120 tabs 11/16/23 (Reglan) esomeprazole magnesium 40 mg 40 mg PO BID #60 caps 03/22/24 capsule,delayed release doxycycline monohydrate 100 mg 100 mg PO BID #7 caps 06/05/24 capsule (Monodox) Allergies Allergy/AdvReac Type Severity Reaction Status Date / Time No Known Allergies Allergy Verified 06/04/24 22:52 [No Known Allergies*] Review of Systems Constitutional: Constitutional: Reports no additional constitutional complaints ENT: Reports system reviewed and no additional complaints, except as documented Cardiovascular: Cardiovascular: Reports no additional cardiovascular complaints Respiratory: Respiratory: Reports no additional respiratory complaints Neurologic: Reports as per [facility] Past Medical History Attestation statement: The following information was validated with the patient. [facility] Narrative: Hypertension Medical History Pre-op examination COVID-19 vaccine administered Arthritis History of BPH HTN (hypertension) GERD (gastroesophageal reflux disease) Hemorrhoids with complication Primary osteoarthritis of right hip Surgical History History of total right hip arthroplasty History of hemorrhoidectomy Hx of cataract extraction History of pterygium excision History of arthroplasty of left hip (11/09/16) History of prostate surgery (2004) History of colonoscopy History of esophagogastroduodenoscopy (EGD) Family History Family History Brother Diabetes Blind Social History Social History Household Members: None Are you a primary lawn care technician to a significant other at home: No Do you presently have visiting nurse or other home services: Yes ([facility]) Alcohol intake: current Alcohol intake frequency: holidays/special occasions only Alcohol type: beer Patient Tobacco Use Status: Never used Tobacco Smoked in Last 30 Days: No Use of substances other than those prescribed or required for medical reasons: Yes Substance Use Type: Marijuana Advance Directives: Yes Advance Directives Information Provided: Yes Advance Directives on File: No Do you have a plan to hurt others: No Plan Current occupational status: disabled 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 Physical Exam ED Vital Signs: Vital Signs - 24 hr 06/04/24 22:45 06/05/24 09:56 Temperature 97.1 F 97.1 F Pulse Rate 60 60 Respiratory Rate 14 14 Blood Pressure 127/62 127/62 Pulse Oximetry 98 98 Oxygen Delivery Method Room Air Room Air BMI result Body Mass Index 27.9 No acute distress Const General: cooperative Nutritional Appearance: average body habitus Orientation/consciousness: oriented to time HENPA Head: Yes normal to inspection Face and sinus: Yes normal facial exam Mouth: Normal oral and palatal mucosa present, lip normal and other (Few blisters seen in the tongue some macroglossia seen) Neck Neck: Yes normal visual inspection and Yes full ROM Chest Chest palpation & inspection: normal inspection of the chest Resp Effort & Inspection: normal respiratory effort Auscultation: clear to auscultation bilaterally Cardio Jugular venous distension: no JVD Rate: regular rate Rhythm: regular rhythm GI Inspection: Yes normal to inspection Auscultation: normal bowel sounds Skin General skin exam: no rashes or lesions noted and elasticity normal Lesions: no lesions Rashes: no rashes Trauma: no lacerations or abrasions Neuro General: oriented to time Cranial nerves: Yes CN's II-XII intact bilaterally Motor exam (neuro): 5/5 motor strength present throughout Course Reevaluation(s) Reevaluation #1: Patient remained stable vital signs are stable I think he can be discharged home follow-up with the his primary care physician. Time: 09:42 Medical Decision Making Medical Decision Making [facility] Narrative: Patient is here with bitter taste of the tongue pain in the tongue we will check blood work including liver function tests. 9.42 AM labs essentially normal I think he can be discharged home he can follow-up with his primary care physician I will send home with a short course of doxycycline he has some blister in the mouth clinical picture consistent with glossitis Differential Diagnosis Differential Diagnoses: The differential diagnosis associated with the presentation includes Hepatic dysfunction/glossitis Admission/Observation Consideration of admission/observation: Escalation of care including admission/observation considered Lab Data [facility] Lab Attestation statement: I reviewed the patient's lab results. 06/05/24 07:28 06/05/24 07:28 Labs: Lab Results 06/05/24 Range/Units 07:28 WBC 5.3 (4.8-10.8) X10*3/uL RBC 3.73 L (4.60-5.80) X10*6/uL Hgb 12.1 L (14.0-18.0) g/dl Hct 35.1 L (42.0-52.0) % MCV 94.1 (80.0-98.0) fL MCH 32.4 (27.0-33.0) pg MCHC 34.5 (31.0-36.0) g/dl RDW 14.3 (11.0-16.0) % Plt Count 184 (160-400) X10*3/uL MPV 9.7 (9.4-12.4) fL Immature Gran % (Auto) 0.4 (0.0-0.4) % Neut % (Auto) 43.7 L (45-73) % Lymph % (Auto) 43.4 H (20-40) % Pierce % (Auto) 8.1 (2-11) % Eos % (Auto) 3.8 (0-4) % Baso % (Auto) 0.6 (0-2) % Lymph # (Auto) 2.3 (1.2-4.9) X10*3/uL Pierce # (Auto) 0.4 (0.1-1.2) X10*3/uL Eos # (Auto) 0.2 (0.0-0.4) X10*3/uL Baso # (Auto) 0.0 (0.0-0.2) X10*3/uL Abs Immat Gran (auto) 0.02 (0.00-0.03) X10*3/uL Absolute Neuts (auto) 2.3 (2.0-8.3) x10*3/uL Absolute Nucleated RBC 0.000 (0.0-0.012) X10*3/uL Nucleated RBC % (auto) 0.0 (0.0-0.2) /100WBC Sodium 141 (135-145) mmol/L Potassium 4.4 (3.3-5.1) mmol/L Chloride 109 H (96-108) mmol/L Carbon Dioxide 24 (22-29) mmol/L Anion Gap 12 (12-20) BUN 23 H (9-16) mg/dL Creatinine 1.07 (0.5-1.4) mg/dL Estim Creat Clear Calc 61.4 Estimated GFR > 60 Random Glucose 105 (60-115) mg/dL Calcium 9.7 (8.4-10.2) mg/dL Total Bilirubin 0.5 (0.0-1.0) mg/dL AST 39 H (5-37) U/L ALT 52 H (0-40) U/L Alkaline Phosphatase 58 (39-117) U/L Total Protein 6.8 (6.5-8.0) g/dL Albumin 3.8 (3.5-5.0) g/dL Discharge Plan Discharge Clinical Impression: Glossitis Patient Disposition: Home, Self-Care Additional Instructions: Please follow-up with your primary care physician return to the emergency room if worse any concern Prescriptions: New doxycycline monohydrate [Monodox] 100 mg capsule 100 mg PO BID Qty: 7 0RF No Action esomeprazole magnesium 40 mg capsule,delayed release(DR/EC) 40 mg PO BID Qty: 60 6RF paroxetine HCl 20 mg tablet 1 tab PO DAILY melatonin 3 mg/4 mL drops 3 mg PO BEDTIME PRN (Reason: sleep) Qty: 60 0RF tamsulosin [Flomax] 0.4 mg capsule 0.4 mg PO BEDTIME (DME) walker Misc See Rx Instructions .MEDSUPPLY Qty: 1 0RF Rx Instructions: Folding Front wheeled walker tolterodine 4 mg capsule,extended release 24hr 4 mg PO QAM alfuzosin 10 mg tablet extended release 24 hr 10 mg PO BEDTIME zolpidem 10 mg tablet 10 mg PO BEDTIME atorvastatin 40 mg tablet 40 mg PO DAILY celecoxib 200 mg capsule 200 mg PO BID lisinopril 20 mg tablet 20 mg PO QAM dexlansoprazole 60 mg capsule,biphase delayed releas 60 mg PO BEDTIME Qty: 30 6RF dicyclomine 20 mg tablet 20 mg PO TID PRN (Reason: abdominal pain) Qty: 20 0RF bisacodyl [Dulcolax (bisacodyl)] 5 mg tablet,delayed release (DR/EC) 10 mg PO BEDTIME 30 Days Qty: 60 6RF metoclopramide HCl [Reglan] 10 mg tablet 10 mg PO QIDACHS Qty: 120 6RF Linzess 290 mcg capsule 290 mcg PO DAILY Qty: 30 6RF polyethylene glycol 3350 [Miralax] 17 gram/dose powder 17 g PO DAILY 14 Days Qty: 238 0RF docusate sodium 100 mg capsule 100 mg PO BID 30 Days Qty: 60 6RF Referrals: Frances Osorio MD [Primary Care Provider] - 2 days Interventions: ED Discharge Assessment Last Done: 06/05/24 09:56 Discharge Date/Time: 06/05/24 09:56 Print Language: Bel[place]
[2024-06-05 08:06] LABS: Alanine Aminotransferase 52 U/L (0-40); Albumin Level 3.8 g/dL (3.5-5.0); Alkaline Phosphatase 58 U/L (39-117); Anion Gap 12 (12-20); Aspartate Amino Transferase 39 U/L (5-37); Bilirubin Total 0.5 mg/dL (0.0-1.0); Blood Urea Nitrogen 23 mg/dL (9-16); Calcium 9.7 mg/dL (8.4-10.2); Carbon Dioxide 24 mmol/L (22-29); Chloride 109 mmol/L (96-108); Creatinine Clr Calc Pharmacy 61.4; Estimated Glomerular Filt Rate > 60; Glucose Random 105 mg/dL (60-115); Potassium 4.4 mmol/L (3.3-5.1); Sodium 141 mmol/L (135-145); Total Protein 6.8 g/dL (6.5-8.0)
[2024-06-05 09:56] VITALS: BP 127/62; PULSE 60; RESP 14; TEMP 36.2; O2SAT 98
== END 2024-06-05 09:56 | disposition home or self-care (01) ==
PROVIDERS: Emergency Provider Emergency Medicine; PCP Internal Medicine
DX: K14.0 Glossitis (principal); I10 Essential (primary) hypertension
CPT/HCPCS: 36415; 80053; 85025; 99283; 99284

== ENCOUNTER 2024-09-11 14:56 | Outpatient (AMB) | payer OTHER, SELFPAY ==
[2024-09-11 15:01] VITALS: BP 147/77; BMI 28.2
--- NOTE | 2024-09-11 15:01 | A.OFFVIS_ITS ---
Vital Signs 09/11/24 15:01 Height 5 ft 6 in Weight 175 lb BMI 28.2 BP 147/77 H Blood Pressure Location Rt brachial Position Sitting Intake Visit Reasons: Constipation Intake Note: Patient in office today in follow up constipation. CC: Patient reports feeling better and denies having any new GI symptoms today. Junior Project Coordinator Required: Yes Junior Project Coordinator Language: City Planning Teacher Services: Junior Project Coordinator Present (Jimmiegabriel ARIELLE LM) Junior Project Coordinator Name: Ana Lilia Accompanied by: Self / Same As Patient Allergies No Known Allergies (No Known Allergies*) Allergy (Verified 09/11/24 15:07) HPI HPI Constipation: Details: Assessment & Plan (1) Chronic idiopathic constipation: Code(s): K59.04 - Chronic idiopathic constipation Category: Medical (2) GERD (gastroesophageal reflux disease): Code(s): K21.9 - Gastro-esophageal reflux disease without esophagitis Category: Medical (3) Small bowel motility disorder: Code(s): K59.9 - Functional intestinal disorder, unspecified Category: Medical Plan [place] #V as no trimmer and reinforcer available. He says that the Ibsrela did not work. He feels that the LInzess works better. He wants another test and since he had a normal small bowel follow through and colonoscopy, I think an anorectal manometry is in order - but we do not perform this at this facility. I will refer him to [facility] since he can't drive to [place]. Also trying to send bisacodyl with his Linzess 290 mcg. He continues on his reglan 10mg qid, generic Nexium twice a day since his insurance is declining Dexilant, colace. He also has MiraLax on record for his constipation but he does not feel that works well. ROV 8 weeks to eval Orders: Referrals Gastroenterology Referral K59.04 - Chronic idiopathic constipation Medications: New bisacodyl (Dulcolax (bisacodyl)) 10 mg (2 x 5 mg) PO BEDTIME 60 tabs 6RF 30 days Refilled metoclopramide HCl (Reglan) 10 mg PO QIDACHS 120 tabs 6RF K59.04 - Chronic idiopathic constipation, K59.9 - Functional intestinal disorder, unspecified Discontinued tenapanor (Ibsrela) must administer immediately before first meal of day/breakfast and dinner Discontinued Reason: Doctor's Order 50 mg PO BID 60 tabs 6RF K59.04 - Chronic idiopathic constipation, K59.9 - Functional intestinal disorder, unspecified Resumed linaclotide (Linzess) 290 mcg PO DAILY 30 caps 6RF Anorectal manometry [facility] VISIT Chinese #V Live I don't have the exact report from the anorectal manometry, but the note from [facility] seems to indicate that he has paradoxical tightening of the rectum when bearing down instead of relaxing for a BM. This is usually treated via biofeedback therapy, but the pt is unwilling to have this. He wants to stay on his current regimen of Linzess, bisacodyl and reglan. He also is doing better on the esomeprazole bid than he did on the Dexilant. He is reassured that he does not have any severe, life threatoning illness. He also is doing better since his dental implants were removed. ROV 6 mos. [facility] Medical History Pre-op examination COVID-19 vaccine administered Arthritis History of BPH HTN (hypertension) GERD (gastroesophageal reflux disease) Hemorrhoids with complication Primary osteoarthritis of right hip Surgical History History of total right hip arthroplasty History of hemorrhoidectomy Hx of cataract extraction History of pterygium excision History of arthroplasty of left hip (11/09/16) History of prostate surgery (2004) History of colonoscopy History of esophagogastroduodenoscopy (EGD) Family History Brother Diabetes Blind Social History Household Members: None Are you a primary direct care professional to a significant other at home: No Do you presently have visiting nurse or other home services: Yes ([facility]) Alcohol intake: current Alcohol intake frequency: holidays/special occasions only Alcohol type: beer Patient Tobacco Use Status: Never used Tobacco Substance Use Type: Marijuana Current occupational status: disabled 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 Physical Exam Vital Signs: Last Vital Signs BP 147/77 H 09/11/24 15:01 BMI result Body Mass Index 28.2 Assessment & Plan Assessment & Plan (1) Chronic idiopathic constipation: Code(s): K59.04 - Chronic idiopathic constipation Category: Medical (2) GERD (gastroesophageal reflux disease): Code(s): K21.9 - Gastro-esophageal reflux disease without esophagitis Category: Medical (3) Small bowel motility disorder: Code(s): K59.9 - Functional intestinal disorder, unspecified Category: Medical (4) Tubular adenoma of colon: Comment: 06/2022 scope equals 1 large TA repeat in 3 years Code(s): D12.6 - Benign neoplasm of colon, unspecified Category: Medical Plan Chinese #V Live I don't have the exact report from the anorectal manometry, but the note from [facility] seems to indicate that he has paradoxical tightening of the rectum when bearing down instead of relaxing for a BM. This is usually treated via biofeedback therapy, but the pt is unwilling to have this. He wants to stay on his current regimen of Linzess, bisacodyl and reglan. He also is doing better on the esomeprazole bid than he did on the Dexilant. He is reassured that he does not have any severe, life threatoning illness. He also is doing better since his dental implants were removed. ROV 6 mos. Medications: Refilled esomeprazole magnesium 40 mg PO BID 60 caps 6RF K21.9 - Gastro-esophageal reflux disease without esophagitis linaclotide (Linzess) 290 mcg PO DAILY 30 caps 6RF metoclopramide HCl (Reglan) 10 mg PO QIDACHS 120 tabs 6RF K59.04 - Chronic idiopathic constipation, K59.9 - Functional intestinal disorder, unspecified docusate sodium 100 mg PO BID 60 caps 6RF 30 days Discontinued dexlansoprazole Discontinued Reason: Doctor's Order 60 mg PO BEDTIME 30 caps 6RF Coding Level of Care Code Est Pt Level 3 (28294) Diagnoses Chronic idiopathic constipation K59.04 GERD (gastroesophageal reflux disease) K21.9 Small bowel motility disorder K59.9 Tubular adenoma of colon D12.6
--- OUTSIDE RECORDS SUMMARY | 2024-09-11 16:02 | XMS_ITS ---
Author Name Ewa Florian NP Address [address] [place] [address] Phone [phone] [facility] Care Team Providers Care Trailer Body Assembler Name Role Phone Ewa Florian Unavailable [phone] Unavailable Unavailable Unavailable MICHAEL BRIGHT Unavailable Unavailable Unavailable [phone] Reason for Referral Not Available Allergies, adverse reactions, alerts No known allergies History of medication use Medication Class Instructions Start Date End Date Bisacodyl EC 5 mg Tab delayed rel TAKE 3 TABLETS BY MOUTH EVERY DAY AT BEDTIME 2021-05-14 No Data Available Dexilant 60 mg Cap delayed rel TAKE 1 CAPSULE BY MOUTH AT BEDTIME 2021-05-14 No Data Available Linzess 290 MCG Cap TAKE 1 CAPSULE BY MO UTH EVERY MORNING 2021-05-14 No Data Available Zolpidem Tartrate 10 mg Tab TAKE 1 TABLE T BY MOUTH AT BEDTIME NEEDED 2021-10-05 No Data Available Movantik 25 mg Tab TAKE 1 TABLET BY YUNIEL TH EVERY MORNING ON AN EMPTY STOMACH. NO FOOD 2-3 HOURS BEFORE OR 1 HOUR AFTER. 2021-10-09 No Data Available oxyCODONE-Acetaminophen 5/325 mg Tab TAKE 1 TABLET BY MOUTH EVERY DAY NEEDED FOR SEVERE PAIN 2021-11-02 No Data Available Docusate Sodium 100 mg Cap TAKE 1 CAPSUL E BY MOUTH TWICE DAILY 2021-11-06 No Data Available Atorvastatin Calcium 40 mg Tab TAKE 1 TABLET BY MOUTH EVERY DAY 2021-08-14 No Data Available PARoxetine 20 mg Tab TAKE 1 TABLET BY MO UTH ONCE DAILY 2021-10-05 No Data Available Alfuzosin ER 10 mg Tab ER 24hr TAKE 1 TABLET BY MOUTH AT BEDTIME 2022-01-11 No Data Available Tolterodine Tartrate ER 4 mg Cap ER 24hr TAKE 1 CAPSULE BY MOUTH EVERY MORNING 2022-01-11 No Data Available Percocet 5/325 mg Tab 1 tablet orally as needed 2-10 No Data Available Narcan 4 mg/0.1ML Liquid Nasal use 1 spray in one nostril in the event of opioid overdose. Call 911 after use 2022-04-03 No Data Available Tamsulosin 0.4 mg Cap TAKE 1 CAPSULE BY MOUTH AT BEDTIME. STOP alfuzosin 2022-06-07 No Data Available Famotidine 20 mg Tab TAKE 1 TABLET BY MO [facility] TWICE DAILY 2022-06-18 No Data Available Lisinopril 20 mg Tab TAKE 1 TABLET BY MO [facility] DAILY IN THE MORNING 2022-06-18 No Data Available Nystatin 508029 UNIT/ML Suspension Mouth/Throat 4 ml orally 4 times per day- swish and swallow x 7 days 2022-06-28 No Data Available Problem List Problem Status Onset Date Resolved Date Synopsis Chronic painHip pain Active 2022-03 N/A Reports having had surgery o n both sides opf hipsOn Percocet, reports that prescriber reduced dose, but pt say he doesn't know why. ConstipationTherapeutic opioid induced constipation Active 2022-03 N/A MovantikBisacodylDexilantLin zessPt denies or appears to deny that his constipation is related to opioid use (percocet). Urination disorder Active 2022-03 N/A TolterodineAlfuzosin MDD (major depressive disorder), recurrent episode, moderate Active 2022-03 N/A On paroxetineWill discuss mo re at FU GERD (gastroesophageal reflux disease) Active 2022-07 N/A dexilant +famotidineRecommen d famotidine 20 mg twice daily as needed for dyspepsia-- Smoking cessation encouranged-- Dietary and life style changes encouraged-- Calcium/Vit D and osteoporosis surveillance stressed-- Risk of halfway PPI use discussed-- Antireflux diet: avoid tomatoes, citrus fruits, carbonated or caffeinated beverages, chocolate, peppermints, fatty foods.-- Elevate head of bed 6 on a brick or telephone book-- Do not eat within 4 hours of bedtime-- Strict diabetic monitoring and management Opioid use Active 2022-03 N/A Taking percocet for pain, pr escriber reduced dose, pt insistent he does not understand why.Will send Narcan (need to confirm pharmacy) Oral bg Active 2022-07 N/A 08/11/22: tx x 1 oral swish a nd swallow one month ago also went to ED and tx c pills fluconaloze 100 x14 days completed both therapies and reports symptoms not resolvedcontinues to have white coating on toungue h/o teeth implant x 5 years I think its my teeth implants He is very adamant that his teeth implants needs to come out and he needs to be sedated, because 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 Pt declined both therapies. would like referral to [facility] to f/u with coverage in that facility and assist with scheduling visitOF NOTE: he has had in person evaluation with PCP, if symptoms persist -recommend f/u with extensive blood work to r/o underlaying disease (i.e., DM, autoimmune disorder, HIV). Patient is not willing to have blood work done today.08/26/22:Attempted to discuss symptoms of thrush, patient raising voice, sounded irritated, speaking fast (all in Turkish), building performance consultant attempted to translate most of what patient was saying. Pt then hung up. 11/29/23 He only has screw in place in preparation for the implants. He is going to make an appointment with his daughter to have implantations finished up since she speaks Welsh. He has a phobia against needles. He wants to have the screws removed since he has had so much issues since they have been in. Dysphagia Active 2023-11 N/A Has only screws in this mout h was going to get implants but never was completed. Wants to get screw out of his mouth since they have caused so much issues for him. He eats a soft or fluid diet. Other problems related to medical facilities and other health care Active 2023-11 N/A PAIN CONTINGENCY PLAN Last updated: 4DELETE ME!!!Why was the member in the hospital or ER most recently? Why are they most likely to go back?Member to call for the following symptoms: Increased painPlanned intervention: Tylenol 650mg q6h/ Lidoderm patch 4% to affected area/ Voltaren gel to affected area/ Prednisone 50mg daily for 5 days/ Apply heat to affected area/ Apply ice to affected area Encounters Encounters Type Facility Date of Service Diagnosis/Co mplaint New patient,40-59min; chronic exacerbation, 2 stable chronic or 1 acute illness add add modifier 95 for video (do not use for phone, instead use [id number]) [facility] Gastro-esophageal reflux disease without esophagitisOther chronic painPain in unspecified hipDrug induced constipationAdverse effect of other opioids, initial encounterOpioid dependence, uncomplicatedOther psychoactive substance use, unspecified, uncomplicatedDisorder of urinary system, unspecifiedMajor depressive disorder, recurrent, moderate New patient,40-59min; chronic exacerbation, 2 stable chronic or 1 acute illness add add modifier 95 for video (do not use for phone, instead use [id number]) [facility] New patient,40-59min; chronic exacerbation, 2 stable chronic or 1 acute illness add add modifier 95 for video (do not use for phone, instead use 97206-70) [facility] New patient,40-59min; chronic exacerbation, 2 stable chronic or 1 acute illness add add modifier 95 for video (do not use for phone, instead use [id number]) [facility] [place] New patient,40-59min; chronic exacerbation, 2 stable chronic or 1 acute illness add add modifier 95 for video (do not use for phone, instead use 04141-13) [facility] [place] New patient,40-59min; chronic exacerbation, 2 stable chronic or 1 acute illness add add modifier 95 for video (do not use for phone, instead use 35431-38) [facility] [place] 04[place]22 No Data Available [facility] [place] 08[place]2022 Gastro-esophageal reflux disease without esophagitisOther chronic painPain in unspecified hipConstipation, unspecifiedDrug induced constipationAdverse effect of other opioids, initial encounterOpioid use, unspecified, uncomplicatedOther psychoactive substance use, unspecified, uncomplicatedOpioid dependence, uncomplicatedDisorder of urinary system, unspecifiedMajor depressive disorder, recurrent, moderateCandidal stomatitis No Data Available [facility] [place] No Data Available [facility] No Data Available [facility] [place] Candidal stomatitis Unlisted special service; to be used for medical record reviews and reporting CPTII codes (1111F, etc) [facility] ([place]/20[place] Other specified counseling Unlisted special service; to be used for medical record reviews and reporting CPTII codes (1111F, etc) [facility] [place]20[place] Unlisted special service; to be used for medical record reviews and reporting CPTII codes (1111F, etc) [facility] ([place]) 09/29/20[place] Estab. patient 30-39min; chronic exacerbation, 2 stable chronic or 1 acute illness add add modifier 95 for video, (do not use for phone, instead use 85163-70) [facility] ([place] 11[place]29/2023 Major depressive disorder, recurrent, moderateOther chronic painPain in unspecified hipConstipation, unspecifiedDrug induced constipationAdverse effect of other opioids, initial encounterOpioid use, unspecified, uncomplicatedOther problems related to medical facilities and other health careDisorder of urinary system, unspecifiedGastro-esophageal reflux disease without esophagitisCandidal stomatitisDysphagia, unspecified Estab. patient 30-39min; chronic exacerbation, 2 stable chronic or 1 acute illness add add modifier 95 for video, (do not use for phone, instead use 33371-34) [facility] [place] Estab. patient 30-39min; chronic exacerbation, 2 stable chronic or 1 acute illness add add modifier 95 for video, (do not use for phone, instead use 68282-44) [facility] ([place]20[place] Estab. patient 30-39min; chronic exacerbation, 2 stable chronic or 1 acute illness add add modifier 95 for video, (do not use for phone, instead use 59557-68) [facility] ([place]29/2023 Estab. patient 30-39min; chronic exacerbation, 2 stable chronic or 1 acute illness add add modifier 95 for video, (do not use for phone, instead use 97805-78) [facility] [place]20[place] Estab. patient 30-39min; chronic exacerbation, 2 stable chronic or 1 acute illness add add modifier 95 for video, (do not use for phone, instead use 71906-41) [facility] [place]20[place] Estab. patient 30-39min; chronic exacerbation, 2 stable chronic or 1 acute illness add add modifier 95 for video, (do not use for phone, instead use 17111-57) [facility] [place]2023 Vital Signs Date of Collection Vitals 2022-04-02 10:33:33 Height - 167.64 cmWe ight - 81.65 kgBody Mass Index (BMI) - 29.05 kg/m2 2023-11-29 07:08:54 Height - 165.1 cmWei ght - 78.93 kgBody Mass Index (BMI) - 28.96 kg/m2BP Diastolic - 72.0 mm[Hg]BP Systolic - 136.0 mm[Hg] Social History Social History Social History Observation Description Effec tive Time Current Smoking Status Never smoker 2024-08-22 2 Sex Male History of Procedures Procedures Service Procedure code Service date Servicing provider Phone# New patient,40-59min; chronic exacerbation, 2 stable chronic or 1 acute illness add add modifier 95 for video (do not use for phone, instead use 83549-39) 47350 2022-04-02 No Data Available No Data Availa ble Medication List Documented (1159F) 1159F 2022-04-02 No Data Available No Data Katy ilable Medication Review by prescribing provider or pharmacist documented (1160F) 1160F 2022-04-02 No Data Available No Data Katy ilable Pain Assessment - Pain Documented on a Pain Scale (1125F) 1125F 2022-04-02 No Data Available No Data Katy ilable Advance Care Directive Advance care planning discussion documented in the medical record (1158F) 1158F 2022-04-02 No Data Available No Data Availa ble BMI obtained (3008F) 3008F 2022-04-02 No Data Availab le No Data Available No Data Available 01783 2022-08-11 No Data Available No Data Available Medication List Documented (1159F) 1159F 2022-08-11 No Data Available No Data Katy ilable Pain Assessment - NO pain present (1126F) 1126F 2022-08-11 No Data Available No Data A vailable No Data Available 77686 2022-08-26 No Data Available No Data Available Unlisted special service; to be used for medical record reviews and reporting CPTII codes (1111F, etc) 15036 2022-09-29 No Data Available No Data Availa ble SBP 130-139 (3075F) 3075F 2022-09-29 No Data Availabl e No Data Available DBP <80 (3078F) 3078F 2022-09-29 No Data Available No Data Available Estab. patient 30-39min; chronic exacerbation, 2 stable chronic or 1 acute illness add add modifier 95 for video, (do not use for phone, instead use 98613-69) 45723 2023-11-29 No Data Available No Data Availa ble SBP 130-139 (3075F) 3075F 2023-11-29 No Data Availabl e No Data Available DBP <80 (3078F) 3078F 2023-11-29 No Data Available No Data Available BMI obtained (3008F) 3008F 2023-11-29 No Data Availab le No Data Available Medication List Documented (1159F) 1159F 2023-11-29 No Data Available No Data Katy ilable Functional Status Assessed (1170F) 1170F 2023-11-29 No Data Available No Data Avail able Pain Assessment - Pain Documented on a Pain Scale (1125F) 1125F 2023-11-29 No Data Available No Data Katy ilable Functional Status Functional Category Effective Dates ADL: Bathing: Needs assistan ceDressing: Needs assistanceEating: IndependentAmbulation: Assistance via walkerTransferring: Needs assistance via walkerToileting: Independent IADL: Medication: Needs AssistanceMeal Prep: Needs AssistanceShopping: Needs AssistanceHousekeeping: Needs AssistanceFalls in last 6 Months: None 2023-11-29 Uses walker and a cane to get around 06-01-07 Mental Status No Information Assessments Date of Service Assessments 2022-04-02 10:33:33 GERD (gastroesophage al reflux disease)Chronic painHip painConstipationTherapeutic opioid induced constipationOpioid use disorder, dependenceSubstance use disorderUrination disorderMDD (major depressive disorder), recurrent episode, moderate 2022-08-11 09:29:55 Chronic painHip pain ConstipationTherapeutic opioid induced constipationOpioid use disorder, dependenceSubstance use disorderUrination disorderMDD (major depressive disorder), recurrent episode, moderateGERD (gastroesophageal reflux disease)Oral bg 2022-08-26 07:27:39 Oral candida08/11/22: tx x 1 oral swish and swallow one month ago also went to ED and tx c pills fluconaloze 100 x14 days completed both therapies and reports symptoms not resolvedcontinues to have white coating on toungue h/o teeth implant x 5 years I think its my teeth implants He is very adamant that his teeth implants needs to come out and he needs to be sedated, because 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 Pt declined both therapies. would like referral to [facility] to f/u with coverage in that facility and assist with scheduling visitOF NOTE: he has had in person evaluation with PCP, if symptoms persist -recommend f/u with extensive blood work to r/o underlaying disease (i.e., DM, autoimmune disorder, HIV). Patient is not willing to have blood work done today.08/26/22:Attempted to discuss symptoms of thrush, patient raising voice, sounded irritated, speaking fast (all in Turkish), building performance consultant attempted to translate most of what patient was saying. Pt then hung up. 2023-11-29 07:08:54 Other problems relat ed to medical facilities and other health careChronic painHip painConstipationTherapeutic opioid induced constipationOpioid useUrination disorderMDD (major depressive disorder), recurrent episode, moderateGERD (gastroesophageal reflux disease)Oral candidaDysphagiaOther problems related to medical facilities and other health care Plan of Care Date of Service Plans 2022-04-02 10:33:33 Medication Review by prescribing provider or pharmacist documented (1160F)Medication List Documented (1159F)Functional Status Assessed (1170F)Advance Care Directive Advance care planning discussion documented in the medical record (1158F)BMI obtained (3008F)Televideo new patient,40-59min; chronic exacerbation, 2 stable chronic or 1 acute illness add modifier 95Pain Assessment - Pain Documented (1125F)Continue to see PCP. Follow-up with [facility] as needed for any acute or disease education needs that may arise.DexilantLifestyle- avoid acid foods at night, do not lie down for 2+ hours after eatingReports having had surgery on both sides opf hipsOn Percocet, reports that prescriber reduced dose, but pt say he doesn't know why. MovantikBisacodylDexilantLinzessPt denies or appears to deny that his constipation is related to opioid use (percocet).Taking percocet for pain, prescriber reduced dose, pt insistent he does not understand why.Will send Narcan (need to confirm pharmacy)TolterodineAlfuzosinOn paroxetineWill discuss more at 2022-08-11 09:29:55 Phone (patient, pare nt, or guardian); 5-10 minutes of medical discussion (no modifier 95)Continue to see PCP. Follow-up with [facility] as needed for any acute or disease education needs that may arise 13/09.Reports having had surgery on both sides opf hipsOn Percocet, reports that prescriber reduced dose, but pt say he doesn't know why. MovantikBisacodylDexilantLinzessPt denies or appears to deny that his constipation is related to opioid use (percocet).Taking percocet for pain, prescriber reduced dose, pt insistent he does not understand why.Will send Narcan (need to confirm pharmacy)TolterodineAlfuzosinOn paroxetineWill discuss more at dexilant +famotidineRecommend famotidine 20 mg twice daily as needed for dyspepsia-- Smoking cessation encouranged-- Dietary and life style changes encouraged-- Calcium/Vit D and osteoporosis surveillance stressed-- Risk of halfway PPI use discussed-- Antireflux diet: avoid tomatoes, citrus fruits, carbonated or caffeinated beverages, chocolate, peppermints, fatty foods.-- Elevate head of bed 6 on a brick or telephone book-- Do not eat within 4 hours of bedtime-- Strict diabetic monitoring and management08/11/22: tx x 1 oral swish and swallow one month ago also went to ED and tx c pills fluconaloze 100 x14 days completed both therapies and reports symptoms not resolvedcontinues to have white coating on toungue h/o teeth implant x 5 years I think its my teeth implants He is very adamant that his teeth implants needs to come out and he needs to be sedated, because 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 Pt declined both therapies. would like referral to [facility] . [facility] to f/u with coverage in that facility and assist with scheduling visitOF NOTE: he has had in person evaluation with PCP, if symptoms persist -recommend f/u with extensive blood work to r/o underlaying disease (i.e., DM, autoimmune disorder, HIV). Patient is not willing to have blood work done today. 2022-08-26 07:27:39 Phone (patient, pare nt, or guardian); 5-10 minutes of medical discussion (no modifier 95)Continue to see PCP. Follow-up with [facility] as needed for any acute or disease education needs that may arise 13/09. 2022-09-29 08:33:39 Unlisted special ser vice; to be used for medical record reviews and reporting CPTII codes (1111F, etc)SBP 130-139 (3075F)DBP <80 (3078F) 2023-11-29 07:08:54 Televideo 30-39min; chronic exacerbation, 2 stable chronic or 1 acute illness add modifier 95Functional Status Assessed (1170F)Pain Assessment - NO pain documented (1126F)BMI obtained (3008F)Advance Care Directive Advance care planning discussion documented in the medical record (1158F)Advance care planning discussed and documented advance care plan or surrogate decision-maker was documented in the medical record. (1123F)SBP 130-139 (3075F)DBP <80 (3078F)Continue to see PCP. Follow-up with [facility] as needed for any acute or disease education needs that may arise.<Add contingency plans here>Reports having had surgery on both sides opf hipsOn Percocet, reports that prescriber reduced dose, but pt say he doesn't know why. MovantikBisacodylDexilantLinzessPt denies or appears to deny that his constipation is related to opioid use (percocet).Taking percocet for pain, prescriber reduced dose, pt insistent he does not understand why.Will send Narcan (need to confirm pharmacy)TolterodineAlfuzosinOn paroxetineWill discuss more at FUdexilant +famotidineRecommend famotidine 20 mg twice daily as needed for dyspepsia-- Smoking cessation encouranged-- Dietary and life style changes encouraged-- Calcium/Vit D and osteoporosis surveillance stressed-- Risk of truck terminal manager PPI use discussed-- Antireflux diet: avoid tomatoes, citrus fruits, carbonated or caffeinated beverages, chocolate, peppermints, fatty foods.-- Elevate head of bed 6 on a brick or telephone book-- Do not eat within 4 hours of bedtime-- Strict diabetic monitoring and management08/11/22: tx x 1 oral swish and swallow one month ago also went to ED and tx c pills fluconaloze 100 x14 days completed both therapies and reports symptoms not resolvedcontinues to have white coating on toungue h/o teeth implant x 5 years I think its my teeth implants He is very adamant that his teeth implants needs to come out and he needs to be sedated, because 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 Pt declined both therapies. would like referral to [facility] . [facility] to f/u with coverage in that facility and assist with scheduling visitOF NOTE: he has had in person evaluation with PCP, if symptoms persist -recommend f/u with extensive blood work to r/o underlaying disease (i.e., DM, autoimmune disorder, HIV). Patient is not willing to have blood work done today.08/26/22:Attempted to discuss symptoms of thrush, patient raising voice, sounded irritated, speaking fast (all in Turkish), building performance consultant attempted to translate most of what patient was saying. Pt then hung up. 11/29/23 He only has screw in place in preparation for the implants. He is going to make an appointment with his daughter to have implantations finished up since she speaks Welsh. He has a phobia against needles. He wants to have the screws removed since he has had so much issues since they have been in.Has only screws in this mouth was going to get implants but never was completed. Wants to get screw out of his mouth since they have caused so much issues for him. He eats a soft or fluid diet.PAIN CONTINGENCY PLANLast updated: 4DELETE ME!!!Why was the member in the hospital or ER most recently? Why are they most likely to go back?Member to call for the following symptoms: Increased painPlanned intervention: Tylenol 650mg q6h/ Lidoderm patch 4% to affected area/ Voltaren gel to affected area/ Prednisone 50mg daily for 5 days/ Apply heat to affected area/ Apply ice to affected area Goals Date Goal 2023-11-29 Please call [facility] for a ll non-emergent care issues, prior to going to the ER. Take medication as prescribed. Keep f/u appointments as scheduled, you need a medication refill if you cannot get a response from your PCP. Call us for any red flag issues, call us nights, weekends, holidays and If you cannot get a response from your PCP 2023-11-29 Unable to review the medication list today. Rescheduled for this Tuesday. Health Concerns Date Concern 2023-11-29 Visit completed maria g mariee audio/video.Patient/Guardian agreed to visit via telehealth. Today, patient has chief complaint of: follow up care and comprehensive review. 2023-11-29 Most recent hospital stay(s) or ER visit(s) and precipitating factors: (use <.>1111F if completing PH visit) 2023-11-29 Open HEDIS Measure r karey:
== END 2024-09-11 15:50 | disposition home or self-care (01) ==
LOC: HO.HGI 14:57
PROVIDERS: PCP Internal Medicine; Visit Provider Nurse Practitioner
DX: K59.04 Chronic idiopathic constipation (principal); K21.9 Gastro-esophageal reflux disease without esophagitis; K59.9 Functional intestinal disorder, unspecified; D12.6 Benign neoplasm of colon, unspecified
CPT/HCPCS: 99213

== ENCOUNTER → 2024-09-11 14:56 | Outpatient (BNVA) | payer OTHER, SELFPAY | PROVIDERS: PCP Internal Medicine; Visit Provider Nurse Practitioner | DX: K59.04 Chronic idiopathic constipation (principal); K21.9 Gastro-esophageal reflux disease without esophagitis; K59.9 Functional intestinal disorder, unspecified; D12.6 Benign neoplasm of colon, unspecified | CPT/HCPCS: 99212 ==

== ENCOUNTER 2024-12-31 15:59 | Outpatient (REF) | payer OTHER, SELFPAY ==
--- OUTSIDE RECORDS SUMMARY | 2024-12-31 17:55 | XMS_ITS | Encounter Summary ---
Author Organization [employer] Address [address] [facility] [address]t [place] [address] Care Team Providers Care Application Packaging Consultant Name Role Phone Frances Osorio MD Primary Care Provide r Reason for Visit * Reason Comments Med Refill Encounter Details Date Type Department Care Team (Late st Contact Info) Description 05/11/2024 Refill [facility] MEDICINE [address] [place], [place] [phone] Frances Osorio MD [address] [place], [place] [phone] Bilateral hip pain Social History Tobacco Use Types Packs/Day Years Used Date Smoking Tobacco: Never Passive Smoke Exposure: Never Smokeless Tobacco: Never Depression Answer Date Recorded Patient Health Questionnaire-9 Score 0 10/05/2022 Housing Stability Answer Date Recorded What is your housing situation today? I have skyla luz 12/01/[address] you li ve. Do you have problems with any of the following? None of the above 12/01/2023 Food Insecurity Answer Date Recorded Within the past 12 months, y ou worried that your food would run out before you got money to buy more: Never True 12/01/2023 Within the past 12 months,th e food you bought just didn't last and you didn't have enough money to get more: Never True 11/2023 Transportation Answer Date Recorded In the past 12 months, has l ack of transportation kept you from medical appts, meetings, work or from getting things needed for daily living? No 12/01/2023 Utilities Answer Date Recorded In the past 12 months, has t he electric, gas, oil or water company threatened to shut off services in your home? No 12/01/2023 Depression Answer Date Recorded Patient Health Questionnaire-2 Score 0 10/05/2022 Internet Access Answer Date Recorded Internet Access Q1 Yes 12/01/2023 Internet Access Q2 Not on file 12/01/2023 Sex and Gender Information Value Date Recorded Sex Assigned at Male 12/21/2021 10:14 AM EDT Legal Sex Male 10:14 AM EDT Gender Identity Male 12/21/2021 10:14 AM EDT Sexual Orientation Straight 12/21/2021 10 :14 AM EDT documented as of this encounter Plan of Treatment Upcoming Encounters Date Type Department Care Team (Late st Contact Info) Description 02/25/2025 2:00 PM EST Clinical Support [facility] [address] [place] [address] Hailee Bhatia RN documented as of this encounter Visit Diagnoses Diagnosis Bilateral hip pain Pain in joint, pelvic region and thigh documented in this encounter Additional Health Concerns Assessment Noted Time PHQ-9 Depression Total Score: 0 10/06/19 23 1:33 PM EDT documented as of this encounter Care Teams Application Packaging Consultant Relationship Specialty Start Date End Date Frances Osorio MD [address] [place] [address] PCP - General Family Medicine 04/03/20 documented as of this encounter
--- OUTSIDE RECORDS SUMMARY | 2024-12-31 17:55 | XMS_ITS | Encounter Summary ---
Author Organization [employer] Address [address] [facility] 7t [place] [address] Care Team Providers Care Continuous Improvement Black Belt Name Role Phone Frances Osorio MD Primary Care Provide r Reason for Visit * Reason Comments Med Refill Encounter Details Date Type Department Care Team (Late st Contact Info) Description 04/18/2024 Refill [facility] MEDICINE [address] [place], [place] [phone] Mary English MD [address] [place], [place] [phone] Hip pain, unspecified laterality Social History Tobacco Use Types Packs/Day Years [...] Description 02/25/2025 2:00 PM EST Clinical Support [facility] MEDICINE [address] [place] [address] Hailee Bhatia RN documented as of this encounter Visit Diagnoses Diagnosis Hip pain, unspecified laterality documented in this encounter Additional Health Concerns Assessment Noted Time PHQ-9 Depression Total Score: 0 10/06/19 23 1:33 PM EDT documented as of this encounter Care Teams Continuous Improvement Black Belt Relationship Specialty Start Date End Date Frances Osorio MD [address] [place] [id number] PCP - General Family Medicine 04/03/20 documented as of this encounter
--- OUTSIDE RECORDS SUMMARY | 2024-12-31 17:55 | XMS_ITS | Encounter Summary ---
Author Organization [employer] Address [address] [facility] 7t [place] [address] Care Team Providers Care Hot Dipper Name Role Phone Frances Osorio MD Primary Care Provide r Encounter Details Date Type Department Care Team (Late st Contact Info) Description 03/13/2024 Orders Only [facility] MEDICINE [address] [place], [place] [phone] Frances Osorio MD [address] [place], [place] [phone] Social History Tobacco Use Types Packs/Day Years [...] Description 02/25/2025 2:00 PM EST Clinical Support [facility] MEDICINE [address] [place] [address] Hailee Bhatia RN documented as of this encounter Visit Diagnoses Not on filedocumented in this encounter Additional Health Concerns Assessment Noted Time PHQ-9 Depression Total Score: 0 10/06/19 23 1:33 PM EDT documented as of this encounter Care Teams Hot Dipper Relationship Specialty Start Date End Date Frances Osorio MD [address] [place] [address] PCP - General Family Medicine 04/03/20 documented as of this encounter"
--- OUTSIDE RECORDS SUMMARY | 2024-12-31 17:55 | XMS_ITS | Encounter Summary ---
Author Organization [employer] Address [address] [facility] [address] [place] [address] Care Team Providers Care Pharmacy Affairs Assistant Name Role Phone Frances Osorio MD Primary Care Provide r Encounter Details Date Type Department Care Team (Late st Contact Info) Description 03/16/2023 Telephone [facility] MEDICINE [address] [place], [place] [phone] Frances Osorio MD [address] [place], [place] [phone] Social History Tobacco Use Types Packs/Day Years Used Date Smoking Tobacco: Never Passive Smoke Exposure: Never Smokeless Tobacco: Never Depression Answer Date Recorded Patient Health Questionnaire-9 Score 0 10/05/2022 Housing Stability Answer Date Recorded What is your housing situation today? I have skyla luz 12/06/[address] you li ve. Do you have problems with any of the following? None of the above 12/06/2022 Food Insecurity Answer Date Recorded Within the past 12 months, y ou worried that your food would run out before you got money to buy more: Never True 12/06/2022 Within the past 12 months,th e food you bought just didn't last and you didn't have enough money to get more: Never True Transportation Answer Date Recorded In the past 12 months, has l ack of transportation kept you from medical appts, meetings, work or from getting things needed for daily living? No 12/06/2022 Utilities Answer Date Recorded In the past 12 months, has t he electric, gas, oil or water company threatened to shut off services in your home? No 12/06/2022 Depression Answer Date Recorded Patient Health Questionnaire-2 Score 0 10/05/2022 Sex and Gender Information Value Date Recorded Sex Assigned at Male 12/21/2021 10:14 AM EDT Legal Sex Male 10:14 AM EDT Gender Identity Male 12/21/2021 10:14 AM EDT Sexual Orientation Straight 12/21/2021 10 :14 AM EDT documented as of this encounter Plan of Treatment Upcoming Encounters Date Type Department Care Team (Late st Contact Info) Description 02/25/2025 2:00 PM EST Clinical Support [facility] MEDICINE [address] [place] [address] Hailee Bhatia, RN documented as of this encounter Visit Diagnoses Not on filedocumented in this encounter Additional Health Concerns Assessment Noted Time PHQ-9 Depression Total Score: 0 10/06/19 23 1:33 PM EDT documented as of this encounter Care Teams Pharmacy Affairs Assistant Relationship Specialty Start Date End Date Frances Osorio MD [address] [place] [address] PCP - General Family Medicine 04/03/20 documented as of this encounter
--- OUTSIDE RECORDS SUMMARY | 2024-12-31 17:55 | XMS_ITS | Encounter Summary ---
Author Organization [employer] [facility] Address [address] [facility] 7t [place] [address] Care Team Providers Care Chip Person Name Role Phone Frances Osorio MD Primary Care Provide r Encounter Details Date Type Department Care Team (Late Contact Info) Description 03/15/2022 Telephone [facility] MEDICINE [address] [place] [phone] Frances Osorio MD [address] [place], [place] [phone] Social History Tobacco Use Types Packs/Day Years Used Date Smoking Tobacco: Never Assessed Sex and Gender Information Value Date Recorded Sex Assigned at Male 12/21/2021 10:14 AM EDT Legal Sex Male 10:14 AM EDT Gender Identity Male 12/21/2021 10:14 AM EDT Sexual Orientation Straight 12/21/2021 10 :14 AM EDT documented as of this encounter Miscellaneous Notes * Telephone Encounter - Nata Colbert - 03/15/2022 10:10 AM EST Tc from pt calling to check status on his dental procedure . Dental Sales Representative informed pt that nurse has tried calling the dental for more information . documented in this encounter Plan of Treatment Upcoming Encounters Date Type Department Care Team (Late Contact Info) Description 02/25/2025 2:00 PM EST Clinical Support [facility] MEDICINE [address] [place] [phone] Hailee Bhatia RN documented as of this encounter Visit Diagnoses Not on filedocumented in this encounter Care Teams Chip Person Relationship Specialty Start Date End Date Frances Osorio MD [address] [place] [address] PCP - General Family Medicine 04/03/20 documented as of this encounter
--- OUTSIDE RECORDS SUMMARY | 2024-12-31 17:55 | XMS_ITS | Encounter Summary ---
Author Organization [employer] [facility] Address [address] [facility] [address] [place] [address] Care Team Providers Care Rotary Drum Dyer Name Role Phone Frances Osorio MD Primary Care Provide r Encounter Details Date Type Department Care Team ([facility] Contact Info) Description 11/02/2022 Orders Only [address] [phone] Provider, Historical, Social History Tobacco Use Types Packs/Day Years Used Date Smoking Tobacco: Never Passive Smoke Exposure: Never Smokeless Tobacco: Never Depression Answer Date Recorded Patient Health Questionnaire-9 Score 0 10/05/2022 Depression Answer Date Recorded Patient Health Questionnaire-2 [...] Description 02/25/2025 2:00 PM EST Clinical Support [address] [address] Hailee Bhatia RN documented as of this encounter Procedures Procedure Name Priority Date/Time Associated Diagnosis Comments HM COLONOSCOPY Routine 07/21/2022 documented in this encounter Results * Hm Colonoscopy (07/21/2022) us Historical Provider HEALTH MAINTENANCE Final Result documented in this encounter Visit Diagnoses Not on filedocumented in this encounter Additional Health Concerns Assessment Noted Time PHQ-9 Depression Total Score: 0 10/06/19 23 1:33 PM EDT documented as of this encounter Care Teams Rotary Drum Dyer Relationship Specialty Start Date End Date Frances Osorio MD [address] [place] [address] PCP - General Family Medicine 04/03/20 documented as of this encounter
--- OUTSIDE RECORDS SUMMARY | 2024-12-31 17:55 | XMS_ITS | Clinical Summary ---
Author Organization [employer] Address [address] [facility] [address] [place] [address] Care Team Providers Care Key Carrier Name Role Phone Frances Osorio MD Primary Care Provide r Allergies No known active allergies Medications famotidine (Pepcid) 20 MG tabletIndication s:Epigastric pain Take 1 tablet (20 mg) by mouth 2 times daily. 60 tablet 11 3 Active naloxone (Narcan) 4 mg/0.1 mL nasal sprayIndications :Hip pain, unspecified laterality FOR SUSPECTED OPIOID OVERDOSE. SPRAY 0.1mL IN ONE NOSTRIL. REPEAT IN ALTERNATE NOSTRIL 2-3 MINUTES IF NEEDED. SEEK MEDICAL ATTENTION IMMEDIATELY EVEN IF PATIENT RESPONDS. 2 each 3 4 Active atorvastatin (Lipitor) 40 MG tablet TAKE 1 TABLET BY MOUTH EVERY DAY 90 tablet 4 Active lisinopril 20 MG tabletIndication s:Essential hypertension TAKE 1 TABLET BY MOUTH EVERY MORNING 90 tablet 1 5 Active oxyCODONE-acetam inophen (Percocet) 5-325 MG tabletIndication s:Bilateral hip pain Take 1 tablet by mouth if needed each day for severe pain for up to 28 days. 28 tablet 5 025 Active Problems Problem Noted Date Diagnosed Date Long-term current use of opiate analgesic 2024 Chronic glossitis 07/27/2024 Assessment & Plan (07/27/2024 4:41 PM EDT): I will order blood work and contact him back with results Screening for human immunodeficiency virus 10/05 Assessment & Plan (10/05/2022 2:24 PM EDT): Results are not in the system I put the order again today Epigastric pain 06/18/2022 Assessment & Plan (06/18/2022 4:53 PM EDT): I advise patient to avoid NSAIDs, spicy and acid food, I advise to eat at the same time every day, I advise to elevate the head of the bed and take medications as prescribe I prescribed today famotidine and ordered H pylori Encounter for preventative adult health care exa mination 06/18/2022 Assessment & Plan (06/18/2022 4:53 PM EDT): Refer to HPI Swallowing painful 06/17/2022 Hip pain 06/17/2022 Assessment & Plan (12/01/2023 3:18 PM EDT): C/w percocet 5/325mg daily PRN Dysphagia 06/17/2022 Assessment & Plan (12/01/2023 3:18 PM EDT): Continue to follow with GI Essential hypertension 08/26/2016 Assessment & Plan (07/27/2024 4:40 PM EDT): Advised: - Aerobic exercise to reduce BP. Initial goal of 30 min walk 3-5x/week. Increase as tolerated. - low-sodium diet (goal: <2g/day) and heart healthy diet such as DASH to reduce BP and prevent ASCVD. - Home BP monitoring 1-2 x day with goal of <140/90. - Seek immediate medical attention for chest pain, palpitations, SOB, syncope, or sudden changes in mental status. - Do not change or discontinue current prescriptions without first consulting health care provider Assessment & Plan (12/01/2023 3:17 PM EDT): Maintenance: BMP: ordered Lipid Panel: ordered ASCVD Risk: Calculate pending updated labs now on atorvastatin 40mg daily - Aerobic exercise to reduce BP. Initial goal of 30 min walk 3-5x/week. Increase as tolerated. - low-sodium diet (goal: <2g/day) and heart healthy diet such as DASH to reduce BP and prevent ASCVD. - Home BP monitoring 1-2 x day with goal of <140/90. - Seek immediate medical attention for chest pain, palpitations, SOB, syncope, or sudden changes in mental status. - Do not change or discontinue current prescriptions without first consulting health care provider Assessment & Plan (03/25/2023 4:41 PM EST): Maintenance: BMP: up to date Lipid Panel: up to date ASCVD Risk: on atorvastatin 40mg daily - Aerobic exercise to reduce BP. Initial goal of 30 min walk 3-5x/week. Increase as tolerated. - low-sodium diet (goal: <2g/day) and heart healthy diet such as DASH to reduce BP and prevent ASCVD. - Home BP monitoring 1-2 x day with goal of <140/90. - Seek immediate medical attention for chest pain, palpitations, SOB, syncope, or sudden changes in mental status. - Do not change or discontinue current prescriptions without first consulting health care provider Assessment & Plan (10/05/2022 2:25 PM EDT): - Aerobic exercise to reduce BP. Initial goal of 30 min walk 3-5x/week. Increase as tolerated. - low-sodium diet (goal: <2g/day) and heart healthy diet such as DASH to reduce BP and prevent ASCVD. - Home BP monitoring 1-2 x day with goal of <140/90. - Seek immediate medical attention for chest pain, palpitations, SOB, syncope, or sudden changes in mental status. -Continue with lisinopril 20mg daily I advise to monitor BP for 2 weeks and bring log on next appointment with nurse if BP not at goal my plan is to increase lisinopril to 40mg - Do not change or discontinue current prescriptions without first consulting health care provider Assessment & Plan (06/18/2022 4:52 PM EDT): - Aerobic exercise to reduce BP. Initial goal of 30 min walk 3-5x/week. Increase as tolerated. - low-sodium diet (goal: <2g/day) and heart healthy diet such as DASH to reduce BP and prevent ASCVD. - Home BP monitoring 1-2 x day with goal of <140/90. - Seek immediate medical attention for chest pain, palpitations, SOB, syncope, or sudden changes in mental status. -Patient was not taking her blood pressure medication, I refilled her medication and advise to take it every day - Do not change or discontinue current prescriptions without first consulting health care provider Hemorrhoids 06/07/2012 Constipation 06/07/2012 Assessment & Plan (07/27/2024 4:41 PM EDT): Continue to follow-up with specialist do not miss appointment with for anal manometry at [facility] Asthenia 02/24/2012 Osteoarthritis 10/20/2011 Hypertriglyceridemia 10/20/2011 Gastroesophageal reflux disease 10/20/2011 Assessment & Plan (10/05/2022 2:23 PM EDT): I advise patient to avoid NSAIDs, spicy and acid food, I advise to eat at the same time every day, I advise to elevate the head of the bed and take medications as prescribe F/u with GI Benign prostatic hyperplasia 10/20/2011 Obesity 08/05/2011 Encounters Date Type Department Care Team Description 11/30/2024 Refill [facility] [address] [place] [address] Frances Osorio MD Bilateral hip pain 11/21/2024 2:00 PM EDT Clinical Support [facility] [address] [place] [address] Hailee Bhatia RN Long-term current use of opiate analgesic (Primary Dx) 11/21/2024 Travel 11/01/2024 Refill [facility] [address] [place] [address] Frances Osorio MD Bilateral hip pain 10/03/2024 Refill [facility] [address] [place] [address] Frances Osorio MD Essential hypertension from Last 3 Months Immunizations Immunization Administration Dates Next Due Influenza High-dose Quadriva lent Preservative Free 01/10/2020 Influenza Quadrivalent Adjuvanted 03/16/2021, Influenza injectable quadriv alent IIV4 with preservative 11/24/2016 Influenza injectable quadriv alent preservative free 03/25/2023,01/05/2022,12/05/2018,2014 Influenza, High Dose Seasona l, Preservative Free 12/01/2023,11/14/2017 Influenza, IIV3, injectable 12/10/2013 Influenza, Split (incl. sil fied surface antigen) 03/19/2013,10/20/2011 Pfizer Covid-19 Vaccine 12+ 12/01/2023 Pneumococcal Conjugate PCV 13 11/14/2017 Pneumococcal Conjugate PCV 20 10/05/2022 Tdap 11/24/2016 Zoster, live 12/28/2016 Social History Tobacco Use Types Packs/Day Years Used Date Smoking Tobacco: Never Passive Smoke Exposure: Never Smokeless Tobacco: Never Tobacco Cessation:Counseling Given: Not Answered Alcohol Use Standard Drinks/Week Comments Never 0 (1 standard drink = 0.6 oz pur e alcohol) Depression Answer Date Recorded Patient Health Questionnaire-9 Score 0 07/27/2024 Patient Health Questionnaire-9 Score 0 07/27/2024 Last PHQ-9: Questionnaire Data Not on file 0 07/27/2024 Housing Stability Answer Date Recorded What is [...] Date Recorded Patient Health Questionnaire-2 Score 0 07/27/2024 Internet Access Answer Date Recorded Internet Access Q1 Yes 12/01/2023 Internet Access Q2 Not on file 12/01/2023 Sex and Gender Information Value Date Recorded Sex Assigned at Male 12/21/2021 10:14 AM EDT Legal Sex Male 10:14 AM EDT Gender Identity Male 12/21/2021 10:14 AM EDT Sexual Orientation Straight 12/21/2021 10 :14 AM EDT Last Filed Vital Signs Vital Sign Reading Time Taken Comments Blood Pressure 139/72 07/27/2024 2:26 PM EDT Pulse 79 07/27/2024 2:26 PM EDT Temperature 37 C (98.6 F) 07/27/2024 2:26 PM EDT Respiratory Rate 20 07/27/2024 2:26 PM EDT Oxygen Saturation 99% 03/25/2023 3:13 PM EST Inhaled Oxygen Concentration - - Weight 79.8 kg (176 lb) 07/27/2024 2:26 PM EDT Height 167.6 cm (5' 6 ) 07/27/2024 2:26 PM EDT Body Mass Index 28.41 07/27/2024 2:26 PM EDT Plan of Treatment Upcoming Encounters Date Type Department Care Team (Late st Contact Info) Description 02/25/2025 2:00 PM EST Clinical Support [facility] [address] [place] [id number] Hailee Bhatia, RN Health Maintenance Due Date Last Done Comments CT Colonography 1952 Dental Oral Exam 1952 Dental Prophylaxis 1952 Dental X-Ray: Bitewings 1952 Dental X-Ray: Full Mouth 1952 FIT DNA/Cologuard 1952 FIT 1952 FOBT 1952 Sigmoidoscopy 1952 Alcohol/Substance Use Screening 1964 Hepatitis C Screening 1970 Zoster Vaccines (2 of 3) 02/22/2017 12/28/2016 COVID-19 Vaccine ( season) 2024 12/01/2023, 01/05/2022, 12/29/2020, Additional history exists Influenza Vaccine (#1) 2024 , 03/25/2023, 01/05/2022, Additional history exists SDOH Screening 11/30/2024 12/01/2023 Colonoscopy 07/21/2025 07/21/2022 Colorectal Cancer Screening 07/21/2025 Depression Screening 07/27/2025 07/27/2024, 07/28/19 Tobacco Screening 07/27/2025 07/27/2024 Lipid Panel 08/07/2025 08/07/2020 DTaP/Tdap/Td Vaccines (2 - Td or Tdap) 11/24/2026 11/24/2016 RSV Patients and Patients Aged 60 years or older (1 - 1-dose 75+ series) 05/09/2027 Pneumococcal Vaccine: 50+ Years Completed 10/05/2022, 11/14/2017 HIB Vaccines Aged Out No longer eligi ble based on patient's age to complete this topic HPV Vaccines Aged Out No longer eligi ble based on patient's age to complete this topic Hepatitis A Vaccines Aged Out No long er eligible based on patient's age to complete this topic Hepatitis B Vaccines Aged Out No long er eligible based on patient's age to complete this topic IPV Vaccines Aged Out No longer eligi ble based on patient's age to complete this topic Meningococcal B Vaccine Aged Out No l onger eligible based on patient's age to complete this topic Meningococcal Vaccine Aged Out No radha rebecca eligible based on patient's age to complete this topic RSV under 20 months Aged Out No longe r eligible based on patient's age to complete this topic Rotavirus Vaccines Aged Out No longer eligible based on patient's age to complete this topic Procedures Procedure Name Priority Date/Time Associated Diagnosis Comments POCT PADMINI-14 URINE DRUG SCREEN Routine 11/21/2024 2:21 PM EDT Long-term current use of opiate analgesic HM COLONOSCOPY Routine 07/21/2022 LIPID PANEL, STANDARD Routine 08/07/2020 3:36 PM EDT from Last 3 Months or Most Recently Relevant to Health Maintenance Results * POCT PADMINI-14 Urine Drug Screen (11/21/2024 2:21 PM EDT) THC Positive Negative Cocaine Screen, Urine Negative Negative Opiate Screen, Urine Negative Negative Methamphetamine Screen Urine Negative Negative Amphetamine Screen, Urine Negative Negative Benzodiazepines Screen, Urine Negative Negative Barbiturate Screen, Urine Negative Negative Methadone Screen, Urine Negative Negative Buprenophine Screen, Urine Negative Negative TCA, Urine Negative Negative MDMA Urine Negative Negative ng/mL Oxycodone Screen, Urine Negative Negative Phencyclidine (PCP), Urine Negative Negative Propoxyphene, Urine Negative Negative Fentanyl, Urine Negative Negative Urine Urine specimen obtained by clean catch procedure / Unknown 11/21/2024 2:21 PM EDT Narrative Hailee Bhatia RN - 11/21/2024 2:21 PM EDT UTOX cup Lot#[id number] Exp. 11/27/25 Internal Pass Control Frances Lua MD POINT OF CARE TEST EN TER/EDIT ORDERABLES Final Result * Hm Colonoscopy (07/21/2022) us Historical Provider HEALTH MAINTENANCE Final Result * (ABNORMAL) LIPID PANEL, STANDARD (08/07/2020 3:36 PM EDT) [facility] Chol/HDLC Ratio 4.1 <5.0 (calc) [facility] Cholesterol, Total 184 <200 mg/dL [facility] HDL Cholesterol 45 > OR = 40 mg/dL [facility] LDL Cholesterol 111(H) mg/dL (calc) [facility] Comment: Reference range: <100 Desirable range <100 mg/dL for primary prevention; <70 mg/dL for patients with CHD or diabetic patients with > or = 2 CHD risk factors. LDL-C is now calculated using the Erik-Chuy calculation, which is a validated novel method providing better accuracy than the Friedewald equation in the estimation of LDL-C. Erik HANNAH et al. VANNESA. 2013;310(19): 2865-8827 (http://education.[employer].QA on Request/faq/LGM451) Non-HDL Cholesterol 139(H) <130 mg/dL (calc) [facility] Comment: For patients with diabetes plus 1 major ASCVD risk factor, treating to a non-HDL-C goal of <100 mg/dL (LDL-C of <70 mg/dL) is considered a therapeutic option. Triglycerides 162(H) <150 mg/dL [facility] 08/07/2020 3:36 PM EDT Frances Lua MD LAB BLOOD ORDERABLES Final Result [facility] [address] from Last 3 Months or Most Recently Relevant to Health Maintenance Insurance [facility] [employer]CI OPTIONS (O D-SNP) [place] [id number] [facility] Care Teams Key Carrier Relationship Specialty Start Date End Date Frances Osorio MD [address] [place] [address] PCP - General Family Medicine 04/03/20
[2024-12-31 17:59] LABS: Prostate Specific Antigen 0.29 ng/mL (<0.05-4.0)
== END 2024-12-31 16:00 | disposition home or self-care (01) ==
LOC: HO.LAB 15:59
PROVIDERS: PCP Internal Medicine; Visit Provider Student in an Organized Health Care Education/Training Program
DX: N40.1 Benign prostatic hyperplasia with lower urinary tract symptoms (principal); Z12.5 Encounter for screening for malignant neoplasm of prostate
CPT/HCPCS: 36415; 84153

== ENCOUNTER 2025-01-03 14:06 | Outpatient (AMB) | payer OTHER, SELFPAY ==
[2025-01-03 14:17] VITALS: BP 142/77; PULSE 70; BMI 28.2
--- NOTE | 2025-01-03 14:17 | A.OFFVIS_ITS ---
Vital Signs 01/03/25 14:17 Height 5 ft 6 in Weight 175 lb BMI 28.2 BP 142/77 H Blood Pressure Location Lt brachial Position Sitting Pulse 70 Intake Visit Reasons: Abd Pain Intake Note: Eladio presents to in office follow up of constipation. CC:Patient c/o constipation, abd pain after eating, and nausea sometimes. Marine Electronics Repairer Required: Yes Marine Electronics Repairer Language: Bruneian Accompanied by: Self / Same As Patient Allergies No Known Allergies (No Known Allergies*) Allergy (Verified 09/11/24 15:07) HPI HPI Abd Pain: Details: Assessment & Plan (1) Chronic idiopathic constipation: Code(s): K59.04 - Chronic idiopathic constipation Category: Medical (2) GERD (gastroesophageal reflux disease): Code(s): K21.9 - Gastro-esophageal reflux disease without esophagitis Category: Medical (3) Small bowel motility disorder: Code(s): K59.9 - Functional intestinal disorder, unspecified Category: Medical (4) Tubular adenoma of colon: Comment: 06/2022 scope equals 1 large TA repeat in 3 years Code(s): D12.6 - Benign neoplasm of colon, unspecified Category: Medical Plan [place]ian #V Live I don't have the exact report from the anorectal manometry, but the note from [facility] seems to indicate that he has paradoxical tightening of the rectum when bearing down instead of relaxing for a BM. This is usually treated via biofeedback therapy, but the pt is unwilling to have this. He wants to stay on his current regimen of Linzess, bisacodyl and reglan. He also is doing better on the esomeprazole bid than he did on the Dexilant. He is reassured that he does not have any severe, life threatoning illness. He also is doing better since his dental implants were removed. ROV 6 mos. Medications: Refilled esomeprazole magnesium 40 mg PO BID 60 caps 6RF K21.9 - Gastro-esophageal reflux disease without esophagitis linaclotide (Linzess) 290 mcg PO DAILY 30 caps 6RF metoclopramide HCl (Reglan) 10 mg PO QIDACHS 120 tabs 6RF K59.04 - Chronic idiopathic constipation, K59.9 - Functional intestinal disorder, unspecified docusate sodium 100 mg PO BID 60 caps 6RF 30 days Discontinued dexlansoprazole Discontinued Reason: Doctor's Order 60 mg PO BEDTIME 30 caps 6RF Laboratory Tests 06/05/24 07:28 WBC 5.3 Hgb 12.1 L Hct 35.1 L MCV 94.1 MCH 32.4 Plt Count 184 Total Bilirubin 0.5 AST 39 H ALT 52 H Alkaline Phosphatase 58 TODAY'S VISIt TRINIDADIAN Ankit Akhtar [facility] Medical History (Updated 01/03/25 @ 16:29 by SHANIKA Gallardo) Pre-op examination COVID-19 vaccine administered Arthritis History of BPH HTN (hypertension) GERD (gastroesophageal reflux disease) Hemorrhoids with complication Primary osteoarthritis of right hip Surgical History History of total right hip arthroplasty History of hemorrhoidectomy Hx of cataract extraction History of pterygium excision History of arthroplasty of left hip (11/09/16) History of prostate surgery (2004) History of colonoscopy History of esophagogastroduodenoscopy (EGD) Family History Brother Diabetes Blind Social History Household Members: None Are you a primary home visit field care manager to a significant other at home: No Do you presently have visiting nurse or other home services: Yes ([facility]) Alcohol intake: current Alcohol intake frequency: holidays/special occasions only Alcohol type: beer Patient Tobacco Use Status: Never used Tobacco Substance Use Type: Marijuana Current occupational status: disabled 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 Review of Systems Const Denies fatigue, Denies fever(s), Denies night sweats, Denies poor appetite and Denies weight loss ENT Reports Normal hearing present, Denies dental pain, Denies dysphagia, Denies hearing loss, Denies mouth pain, Denies odynophagia, Denies throat swelling, Denies tongue swelling and Reports other (Dentition adequate) Card Reports no additional complaints Resp Reports no additional complaints GI Details: Reports abdominal pain, Denies melena, Reports bloating, Denies hematochezia, Reports constipation, Denies GI cramping, Denies dysphagia, Denies excessive flatus, Denies early satiety, Reports heartburn, Denies diarrhea, Reports nausea, Denies odynophagia, Denies vomiting and Denies hematemesis Skin/Breast Denies pruritus, Denies lesions, Denies rash and Denies jaundice Neuro Reports Normal hearing present, Denies Abnormal speech present and Reports memory loss Psych Reports memory loss Endo Denies fatigue Aller/Immun Denies throat swelling and Denies tongue swelling Physical Exam Vital Signs: Last Vital Signs Pulse 70 01/03/25 14:17 BP 142/77 H 01/03/25 14:17 BMI result Body Mass Index 28.2 Const General: cooperative, no acute distress, well developed and well groomed Nutritional Appearance: well nourished and obese centrally obese Orientation/consciousness: oriented to person, oriented to place and oriented to time Limitations: language barrier and other limitations HEENT Head: Yes normocephalic and Yes atraumatic Eyes General: appearance normal, both eyes and all related structures Pupils: Equal, round and reactive pupils present Neck Neck: Yes normal visual inspection and Yes no lymphadenopathy Thyroid: Thyroid normal Resp Effort & Inspection: normal respiratory effort and able to speak in complete sentences Auscultation: clear to auscultation bilaterally Cardio Rate: regular rate Rhythm: regular rhythm Heart sounds: Normal, physiologic split S2 sound present Peripheral pulses: radial pulses present and posterior tibial pulses present GI Inspection: No distended, No Abdominal panniculus present and Yes obesity Palpation (GI): Soft to palpation, nontender, no guarding, not rigid and No hepatosplenomegaly present Percussion: Yes normal to percussion Auscultation: normal bowel sounds Rectal Exam - Male: Yes deferred Skin General skin exam: no rashes or lesions noted, turgor normal, skin not dry, no jaundice, No spider nevi and no striae Rashes: no rashes Nails: normal Neuro General: oriented to person, oriented to place and oriented to time Cranial nerves: Yes Equal, round and reactive pupils present and Yes Normal hearing present Speech: No Abnormal speech present Extrem General: Yes normal to inspection, No clubbing, No cyanosis and No edema Psych Appearance: grossly normal and well kempt Mental Status: mental status grossly normal Speech and movement: Normal speech and movement present Affect: normal affect Attitude: cooperative Thought process: Normal thought process present and not confabulating Thought content: Normal thought content present Insight: Poor insight present (Psych) Judgement: Poor judgement present (Psych) Results Reviewed Results Reviewed: Laboratory Tests 06/05/24 07:28 WBC 5.3 Hgb 12.1 L Hct 35.1 L MCV 94.1 MCH 32.4 Plt Count 184 Total Bilirubin 0.5 AST 39 H ALT 52 H Alkaline Phosphatase 58 Assessment & Plan Assessment & Plan (1) GERD (gastroesophageal reflux disease): Code(s): K21.9 - Gastro-esophageal reflux disease without esophagitis Category: Medical (2) Chronic idiopathic constipation: Code(s): K59.04 - Chronic idiopathic constipation Category: Medical (3) Small bowel motility disorder: Code(s): K59.9 - Functional intestinal disorder, unspecified Category: Medical (4) Therapeutic opioid induced constipation: Code(s): K59.03 - Drug induced constipation; T40.2X5A - Adverse effect of other opioids, initial encounter Category: Medical (5) Tubular adenoma of colon: Comment: 06/2022 scope equals 1 large TA repeat in 3 years Code(s): D12.6 - Benign neoplasm of colon, unspecified Category: Medical (6) Periumbilical abdominal pain: Comment: He says he has had no more pain since his constipation was controlled Code(s): R10.33 - Periumbilical pain Category: Medical (7) Pre-op examination: Code(s): Z01.818 - Encounter for other preprocedural examination Category: Medical Plan TRINIDADIAN #Elizabeth Hermilo Hendricks continues to complain of difficulty moving his bowels, accompanied by pain that moves around his belly and frequent nausea. He says he has these symptoms about 3 times a week. He really likes his Linzess but it does not always work to move his bowels right away sometimes it will not work till the next day. Unfortunately, either his psychiatric state or his educational state prevents us from making him understand that adding a medication such as bisacodyl to his Linzess would help him more. At this point we do not have any other interventions to try for him and he is understanding. He thinks that we have done quite a lot to help him so far so at least that is good. Because he complains mostly of symptoms with fatty foods I think it is probably a good idea do an ultrasound and make sure he does not have gallstones or gallbladder problems. He is agreeable to this. He is also due for colonoscopy due to his history of colon polyps. He is quite eager for this thinking that it will give some insight into his constipation which it likely will not. He denies any cardiac or respiratory problems. There are no prior problems with anesthesia or sedation. He denies any infectious disease problems. At this point I will see him after the ultrasound or the colonoscopy whichever happens 1st Orders: Orders US abdomen complete Today R10.33 - Periumbilical pain Referrals GI Procedure Notification K59.04 - Chronic idiopathic constipation Medications: New peg 3350-electrolytes 236-22.74-6.74 -5.86 gram (Golytely) until fecal effluent is clear; do not exceed a total volume of 2,000 mL 240 mL PO Q10M 4,000 mL 0RF 1 day Z12.11 - Encounter for screening for malignant neoplasm of colon bisacodyl (Dulcolax (bisacodyl)) 10 mg (2 x 5 mg) PO BEDTIME 4 tabs 0RF 2 days Refilled dicyclomine 20 mg PO TID PRN 20 tabs 0RF abdominal pain metoclopramide HCl (Reglan) 10 mg PO QIDACHS 120 tabs 6RF K59.04 - Chronic idiopathic constipation, K59.9 - Functional intestinal disorder, unspecified polyethylene glycol 3350 (Miralax) 17 grams PO DAILY 238 grams 0RF 14 days docusate sodium 100 mg PO BID 60 caps 6RF 30 days Coding Level of Care Code Est Pt Level 4 (16506) Diagnoses GERD (gastroesophageal reflux disease) K21.9 Chronic idiopathic constipation K59.04 Small bowel motility disorder K59.9 Therapeutic opioid induced constipation K59.03; T40.2X5A Tubular adenoma of colon D12.6 Periumbilical abdominal pain R10.33 Pre-op examination Z01.818 Time Spent (min) 37
--- OUTSIDE RECORDS SUMMARY | 2025-01-03 17:28 | XMS_ITS | Clinical Summary ---
Author Organization [employer] Address [address] [facility] 7t [place] [address] Care Team Providers Care Forge Shop Supervisor Name Role Phone Frances Osorio MD Primary Care Provide r Allergies No known active allergies Medications famotidine (Pepcid) 20 MG tabletIndicatio ns:Epigastric pain Take 1 tablet (20 mg) by mouth 2 times daily. 60 tablet 11 06/19/19 23 Active naloxone (Narcan) 4 mg/0.1 mL nasal sprayIndication s:Hip pain, unspecified laterality FOR SUSPECTED OPIOID OVERDOSE. SPRAY 0.1mL IN ONE NOSTRIL. REPEAT IN ALTERNATE NOSTRIL 2-3 MINUTES IF NEEDED. SEEK MEDICAL ATTENTION IMMEDIATELY EVEN IF PATIENT RESPONDS. 2 each 3 10/26/19 24 Active atorvastatin (Lipitor) 40 MG tablet TAKE 1 TABLET BY MOUTH EVERY DAY 90 tablet 10/31/19 24 Active lisinopril 20 MG tabletIndicatio ns:Essential hypertension TAKE 1 TABLET BY MOUTH EVERY MORNING 90 tablet 1 10/05/19 25 Active oxyCODONE-aceta minophen (Percocet) 5-325 MG tabletIndicatio ns:Bilateral hip pain Take 1 tablet by mouth if needed each day for severe pain for up to 28 days. 28 tablet 01/02/20 25 2024 Active oxyCODONE-aceta minophen (Percocet) 5-325 MG tabletIndicatio ns:Bilateral hip pain Take 1 tablet by mouth if needed each day for severe pain for up to 28 days. 28 tablet 12/01/19 25 2024 Discontinued(R eorder (will not trigger notification to Pharmacy)) Active Problems Problem Noted Date Diagnosed Date [...] miss appointment with for anal manometry at [facility] Asthenia 02/24/2012 Osteoarthritis 10/20/2011 Hypertriglyceridemia 10/20/2011 Gastroesophageal [...] Encounters Date Type Department Care Team Description 01/01/2025 Refill [facility] MEDICINE [address] [place] [address] Frances Osorio MD Bilateral hip pain 11/30/2024 Refill [facility] MED[facility]INE [address] [place] [address] Frances Osorio MD Bilateral hip pain 11/21/2024 2:00 PM EDT Clinical Support [facility] [address] [facility] [place] [address] Hailee Bhatia RN Long-term current use of opiate analgesic (Primary Dx) 11/21/2024 Travel 11/01/2024 Refill [facility] [place] [address] Frances Osorio MD Bilateral hip pain 10/03/2024 Refill [facility] MED[facility]INE [address] [place] [address] Frances Osorio MD Essential hypertension from Last [...] your housing situation today? I have skyla sukh 12/01/[address] you li [...] Description 02/25/2025 2:00 PM EST Clinical Support [facility] MED[facility] [address] [place] [address] Hailee Bhatia, RN Health Maintenance Due Date [...] Screening 07/21/2025 Depression Screening 07/27/2025 07/27/2024, 07/28/19 25 Tobacco Screening 07/27/2025 07/27/2024 Lipid Panel 08/07/2025 [...] - 11/21/2024 2:21 PM EDT [employer] cup Lot#[id number] Exp. 11/27/25 Internal Pass Control Frances Lua MD POINT OF CARE TEST EN TER/EDIT ORDERABLES Final Result * Hm Colonoscopy (07/21/2022) Historical Provider HEALTH MAINTENANCE Final Result * (ABNORMAL) LIPID PANEL, STANDARD (08/07/2020 3:36 PM EDT) Pathologist [facility] Chol/HDLC Ratio 4.1 <5.0 (calc) [facility] [...] factors. LDL-C is now calculated using the Igor calculation, which is a validated novel method providing better accuracy than the Friedewald equation in the estimation of LDL-C. Erik HANNAH et al. VANNESA. 2013;310(19): 4603-4161 (http://education.[employer].com/faq/QNZ332) Non-HDL Cholesterol 139(H) <130 mg/dL (calc) [facility] Comment: For patients with diabetes plus 1 major ASCVD risk factor, treating to a non-HDL-C goal of <100 mg/dL (LDL-C of <70 mg/dL) is considered a therapeutic option. Triglycerides 162(H) <150 mg/dL [facility] 08/07/2020 3:36 PM EDT us Frances Lua MD LAB BLOOD ORDERABLES Final Result [facility] [address] from Last 3 Months or Most Recently Relevant to Health Maintenance Insurance [employer] (O D-SNP) DENTAL [facility] Care Teams Forge Shop Supervisor Relationship Specialty Start Date End Date Frances Osorio MD [address] [place] [phone] PCP - General Family Medicine 04/03/20
--- OUTSIDE RECORDS SUMMARY | 2025-01-03 17:28 | XMS_ITS | Encounter Summary ---
Author Organization [employer] Address [address] [facility] 7t [place] [address] Care Team Providers Care Corpsman Name Role Phone Frances Osorio MD Primary Care Provide r Encounter Details Date Type Department Care Team (Late st Contact Info) Description 03/16/2023 Telephone [facility] MEDICINE [address] [place], [place] [phone] Frances Osorio MD [address] [place], [place] [phone] Social History Tobacco Use Types Packs/Day Years [...] Description 02/25/2025 2:00 PM EST Clinical Support [facility] MEDICINE [address] [place] [address] Hailee Bhatai, RN documented as of this encounter Visit Diagnoses Not on filedocumented in this encounter Additional Health Concerns Assessment Noted Time PHQ-9 Depression Total Score: 0 10/06/19 23 1:33 PM EDT documented as of this encounter Care Teams Corpsman Relationship Specialty Start Date End Date Frances Osorio MD [address] [place] [address] PCP - General Family Medicine 04/03/20 documented as of this encounter
--- OUTSIDE RECORDS SUMMARY | 2025-01-03 17:28 | XMS_ITS | Encounter Summary ---
Author Organization [employer] Address 75 [facility] 7t [place] [address] Care Team Providers Care Gas Leak Tester Name Role Phone Frances Osorio MD Primary Care Provide r Reason for Visit * Reason Comments Med Refill Encounter Details Date Type Department Care Team (Late st Contact Info) Description 05/11/2024 Refill [facility] MEDICINE [address] [place], [place] [phone] Frances Osorio MD [address] [place], [place] [phone] Bilateral hip pain Social History Tobacco Use [...] Description 02/25/2025 2:00 PM EST Clinical Support [facility] MEDICINE [address] [place] [address] Hailee Bhatia RN documented as of this encounter Visit Diagnoses Diagnosis Bilateral hip pain Pain in joint, pelvic region and thigh documented in this encounter Additional Health Concerns Assessment Noted Time PHQ-9 Depression Total Score: 0 10/06/19 23 1:33 PM EDT documented as of this encounter Care Teams Gas Leak Tester Relationship Specialty Start Date End Date Frances Osorio MD [address] [place] [address] PCP - General Family Medicine 04/03/20 documented as of this encounter
--- OUTSIDE RECORDS SUMMARY | 2025-01-03 17:28 | XMS_ITS | Encounter Summary ---
Author Organization [employer] Address 75 [facility] 7t [place] [address] Care Team Providers Care Boat Pilot Name Role Phone Frances Osorio MD Primary Care Provide r Reason for Visit * Reason Comments Med Refill Encounter Details Date Type Department Care Team (Late st Contact Info) Description 04/18/2024 Refill [facility] MEDICINE [address] [place], [place] [phone] Mary English MD 230 [place], [place] [phone] Hip pain, unspecified laterality Social History Tobacco [...] Description 02/25/2025 2:00 PM EST Clinical Support [facility] MEDICINE [address] [place] [address] Hailee Bhatia RN documented as of this encounter Visit Diagnoses Diagnosis Hip pain, unspecified laterality documented in this encounter Additional Health Concerns Assessment Noted Time PHQ-9 Depression Total Score: 0 10/06/19 23 1:33 PM EDT documented as of this encounter Care Teams Boat Pilot Relationship Specialty Start Date End Date Frances Osorio MD [address] [place] [address] PCP - General Family Medicine 04/03/20 documented as of this encounter
--- OUTSIDE RECORDS SUMMARY | 2025-01-03 17:28 | XMS_ITS | Encounter Summary ---
Author Organization [employer] Address 75 [facility] 7t [place] [address] Care Team Providers Care Assistant Director Of Residence Life Name Role Phone Frances Osorio MD Primary Care Provide r Encounter Details Date Type Department Care Team (Late st Contact Info) Description 03/13/2024 Orders Only [facility] MEDICINE 230 [place], [place] [phone] Frances Osorio MD [address] [place], [place] [phone] Social History Tobacco Use Types Packs/Day Years [...] Description 02/25/2025 2:00 PM EST Clinical Support [facility] MEDICINE [address] [place] [address] Hailee Bhatia RN documented as of this encounter Visit Diagnoses Not on filedocumented in this encounter Additional Health Concerns Assessment Noted Time PHQ-9 Depression Total Score: 0 10/06/19 23 1:33 PM EDT documented as of this encounter Care Teams Assistant Director Of Residence Life Relationship Specialty Start Date End Date Frances Osorio MD [address] [place] [address] PCP - General Family Medicine 04/03/20 documented as of this encounter
--- OUTSIDE RECORDS SUMMARY | 2025-01-03 17:28 | XMS_ITS | Encounter Summary ---
Author Organization [facility] Address [address] [facility] 7t [place] [address] Care Team Providers Care Litigation Claim Representative Name Role Phone Frances Osorio MD Primary Care Provide r Encounter Details Date Type Department Care Team ([facility] Contact Info) Description 11/02/2022 Orders Only [address] [phone] Provider, Historical, Social History Tobacco Use Types [...] Description 02/25/2025 2:00 PM EST Clinical Support [address] [address] Hailee Bhatia RN documented as of this [...] documented as of this encounter Care Teams Litigation Claim Representative Relationship Specialty Start Date End Date Frances Osorio MD [address] [place] [address] PCP - General Family Medicine 04/03/20 documented as of this encounter
--- OUTSIDE RECORDS SUMMARY | 2025-01-03 17:28 | XMS_ITS | Encounter Summary ---
Author Organization [employer] Address [address] [facility] 7t [place] [address] Care Team Providers Care Oven Worker Name Role Phone Frances Osorio MD Primary Care Provide r Reason for Visit * Reason Onset Date Comments Med Refill 01/01/2025 Encounter Details Date Type Department Care Team ([facility] st Contact Info) Description 01/01/2025 Refill [facility] MED[facility]INE [address] [place] [address] Frances Osorio MD [address] [place] [address] Bilateral hip pain Social History Tobacco Use Types Packs/Day Years Used Date Smoking Tobacco: Never Passive Smoke Exposure: Never Smokeless Tobacco: Never Alcohol Use Standard Drinks/Week Comments Never 0 [...] as of this encounter Miscellaneous Notes * Addendum Note - Hailee Bhatia RN - 01/01/2025 1:53 PM ESTAddended by: HAILEE BHATIA on: 01/01/2025 01:53 PM Modules accepted: Orders * Telephone Encounter - Manjula Martinez - 01/01/2025 1:29 PM EST Pt walked in requesting a refill for his medication Oxycodone. documented in this encounter Plan of Treatment Upcoming Encounters Date Type Department Care Team (Late st Contact Info) Description 02/25/2025 2:00 PM EST Clinical Support [facility] MEDICINE [address] [place] [address] Hailee Bhatia, RN documented as of this encounter Visit Diagnoses Diagnosis Bilateral hip pain Pain in joint, pelvic region and thigh documented in this encounter Additional Health Concerns Assessment Noted Time PHQ-9 Depression Total Score: 0 07/28/19 25 2:27 PM EDT documented as of this encounter Care Teams Oven Worker Relationship Specialty Start Date End Date Frances Osorio MD [address] [place] [address] PCP - General Family Medicine 04/03/20 documented as of this encounter
--- OUTSIDE RECORDS SUMMARY | 2025-01-03 17:28 | XMS_ITS | Encounter Summary ---
Author Organization [employer] [facility] Address [address] [facility] 7t [place] [address] Care Team Providers Care Drier Operator Head Name Role Phone Frances Osorio MD Primary Care Provide r Encounter Details Date Type Department Care Team (Late Contact Info) Description 03/15/2022 Telephone [facility] MEDICINE [address] [place] [phone] Frances Osorio MD [address] [place], [place] [phone] Social History Tobacco Use Types Packs/Day Years [...] check status on his dental procedure . Regional Business Manager informed pt that nurse has tried calling the dental for more information . documented in this encounter Plan of Treatment Upcoming Encounters Date Type Department Care Team (Late Contact Info) Description 02/25/2025 2:00 PM EST Clinical Support [facility] MEDICINE [address] [place] [address] [phone] Hailee Bhatia RN documented as of this encounter Visit Diagnoses Not on filedocumented in this encounter Care Teams Drier Operator Head Relationship Specialty Start Date End Date Frances Osorio MD [address] [place] [address] PCP - General Family Medicine 04/03/20 documented as of this encounter
== END 2025-01-03 16:11 | disposition home or self-care (01) ==
LOC: HO.HGI 14:06
PROVIDERS: PCP Internal Medicine; Visit Provider Nurse Practitioner
DX: K21.9 Gastro-esophageal reflux disease without esophagitis (principal); K59.04 Chronic idiopathic constipation; K59.9 Functional intestinal disorder, unspecified; K59.03 Drug induced constipation; Z86.0100 Personal history of colon polyps, unspecified; R10.33 Periumbilical pain
CPT/HCPCS: 99214

== ENCOUNTER → 2025-01-03 14:06 | Outpatient (BNVA) | payer OTHER, SELFPAY | PROVIDERS: PCP Internal Medicine; Visit Provider Nurse Practitioner | DX: Z01.818 Encounter for other preprocedural examination (principal); K21.9 Gastro-esophageal reflux disease without esophagitis; R10.33 Periumbilical pain; K59.04 Chronic idiopathic constipation; K59.03 Drug induced constipation; T40.2X5A Adverse effect of other opioids, initial encounter; K59.9 Functional intestinal disorder, unspecified; D12.6 Benign neoplasm of colon, unspecified | CPT/HCPCS: 99212 ==

== ENCOUNTER 2025-01-14 11:11 | Outpatient (REF) | payer OTHER, SELFPAY ==
--- NOTE | ~2025-01-14 | XR_ITS ---
EXAMINATION: X-ray bilateral hips CLINICAL INFORMATION: Pain COMPARISON: X-ray 12/07/2019] right knee Left knee x-ray 04/15/2014 TECHNIQUE: Pelvis 1 view. Bilateral hips each 2 views. FINDINGS: Left hip: Status post total hip arthroplasty. Hardware is intact. No acute fracture. No suspicious perihardware lucency. Chronic appearing ossification in the medial joint space. Right hip: Status post total hip arthroplasty. Expected position and alignment. Intact hardware. No acute fracture or suspicious perihardware lucencies. Pelvis: SI joints are intact. Mild symphysis pubis degeneration. No acute pelvic fractures. No suspicious bony lesions. No abnormal soft tissue calcification. XR/XR hip RT min 2V IMPRESSION: Status post bilateral total hip arthroplasty. No radiographic findings suggest hardware failure. No acute periprosthetic fractures. Additional findings as above. Electronically signed by: Casey Caro MD 01/14/2025 03:01 PM [facility]
--- NOTE | ~2025-01-14 | XR_ITS ---
EXAMINATION: X-ray bilateral hips CLINICAL INFORMATION: Pain COMPARISON: X-ray 12/07/2019] right knee Left knee x-ray 04/15/2014 TECHNIQUE: Pelvis 1 view. Bilateral hips each 2 views. FINDINGS: Left hip: Status post total hip arthroplasty. Hardware is intact. No acute fracture. No suspicious perihardware lucency. Chronic appearing ossification in the medial joint space. Right hip: Status post total hip arthroplasty. Expected position and alignment. Intact hardware. No acute fracture or suspicious perihardware lucencies. Pelvis: SI joints are intact. Mild symphysis pubis degeneration. No acute pelvic fractures. No suspicious bony lesions. No abnormal soft tissue calcification. XR/XR hip LT min 2V IMPRESSION: Status post bilateral total hip arthroplasty. No radiographic findings suggest hardware failure. No acute periprosthetic fractures. Additional findings as above. Electronically signed by: Casey Caro MD 01/14/2025 03:01 PM ANKUR
--- OUTSIDE RECORDS SUMMARY | 2025-01-14 14:30 | XMS_ITS | Encounter Summary ---
Author Organization [employer] Address 75 [facility] 7t [place] [address] Care Team Providers Care Pipelines Manager Name Role Phone Frances Osorio MD Primary Care Provide r Encounter Details Date Type Department Care Team (Late st Contact Info) Description 03/16/2023 Telephone [facility] MEDICINE [address] [place], [place] [phone] Frances Osorio MD [address] [place], [place] [phone] Social History Tobacco Use Types Packs/Day Years [...] Description 02/25/2025 2:00 PM EST Clinical Support [facility] MEDICINE [address] [place] [address] Hailee Bhatia, RN documented as of this encounter Visit Diagnoses Not on filedocumented in this encounter Additional Health Concerns Assessment Noted Time PHQ-9 Depression Total Score: 0 10/06/19 23 1:33 PM EDT documented as of this encounter Care Teams Pipelines Manager Relationship Specialty Start Date End Date Frances Osorio MD [address] [place] [address] PCP - General Family Medicine 04/03/20 documented as of this encounter
--- OUTSIDE RECORDS SUMMARY | 2025-01-14 14:30 | XMS_ITS | Encounter Summary ---
Author Organization [employer] [facility] Address 75 [facility] 7t [place] [address] Care Team Providers Care Police Sergeant Precinct Name Role Phone Frances Osorio MD Primary Care Provide r Encounter Details Date Type Department Care Team (Late Contact Info) Description 03/15/2022 Telephone [facility] MEDICINE [address] [place] [phone] Frances Osorio MD [address] [place], [place] [phone] Social History Tobacco Use Types Packs/Day Years [...] check status on his dental procedure . Fire Extinguisher Inspector informed pt that nurse has tried calling the dental for more information . documented in this encounter Plan of Treatment Upcoming Encounters Date Type Department Care Team (Late Contact Info) Description 02/25/2025 2:00 PM EST Clinical Support [facility] MEDICINE [address] [place] [address] [phone] Hailee Bhatia RN documented as of this encounter Visit Diagnoses Not on filedocumented in this encounter Care Teams Police Sergeant Precinct Relationship Specialty Start Date End Date Frances Osorio MD [address] [place] [address] PCP - General Family Medicine 04/03/20 documented as of this encounter
--- OUTSIDE RECORDS SUMMARY | 2025-01-14 14:30 | XMS_ITS | Encounter Summary ---
Author Organization [employer] [facility] Address 75 [facility] 7t [place] [address] Care Team Providers Care Network Architect Name Role Phone Frances Osorio MD Primary Care Provide r Encounter Details Date Type Department Care Team ([facility] Contact Info) Description 11/02/2022 Orders Only [address] [phone] Provider, Historical, Social History Tobacco Use Types [...] Description 02/25/2025 2:00 PM EST Clinical Support [address] [address] Hailee Bhatia RN documented as of this [...] documented as of this encounter Care Teams Network Architect Relationship Specialty Start Date End Date Frances Osorio MD [address] [place] [address] PCP - General Family Medicine 04/03/20 documented as of this encounter
--- OUTSIDE RECORDS SUMMARY | 2025-01-14 14:31 | XMS_ITS | Encounter Summary ---
Author Organization [employer] Address 75 [facility] 7t [place] [address] Care Team Providers Care Accounts Payable Accountant Name Role Phone Frances Osorio MD Primary Care Provide r Reason for Visit * Reason Comments Med Refill Encounter Details Date Type Department Care Team (Late st Contact Info) Description 04/18/2024 Refill [facility] MEDICINE [address] [place], [place] [phone] Mary English MD [address] [place], [place] [phone] Hip pain, unspecified laterality Social History Tobacco [...] [facility] [address] [place] [address] Hailee Bhatia RN documented as of this encounter Visit Diagnoses Diagnosis Hip pain, unspecified laterality documented in this encounter Additional Health Concerns Assessment Noted Time PHQ-9 Depression Total Score: 0 10/06/19 23 1:33 PM EDT documented as of this encounter Care Teams Accounts Payable Accountant Relationship Specialty Start Date End Date Frances Osorio MD [address] [place] [address] PCP - General Family Medicine 04/03/20 documented as of this encounter
--- OUTSIDE RECORDS SUMMARY | 2025-01-14 14:31 | XMS_ITS | Encounter Summary ---
Author Organization [employer] Address [address] [facility] [address] [place] [address] Care Team Providers Care Specialty Manufacturing Supervisor Name Role Phone Frances Osorio MD Primary Care Provide r Reason for Visit * Reason Comments Med Refill Encounter Details Date Type Department Care Team (Late st Contact Info) Description 05/11/2024 Refill [facility] [address] [place], [place] [phone] Fracnes Osorio MD [address] [place], [place] [phone] Bilateral hip pain Social History Tobacco Use [...] Description 02/25/2025 2:00 PM EST Clinical Support [facility] [address] [place] [address] Hailee Bhatia RN documented as of this encounter Visit Diagnoses Diagnosis Bilateral hip pain Pain in joint, pelvic region and thigh documented in this encounter Additional Health Concerns Assessment Noted Time PHQ-9 Depression Total Score: 0 10/06/19 23 1:33 PM EDT documented as of this encounter Care Teams Specialty Manufacturing Supervisor Relationship Specialty Start Date End Date Frances Osorio MD [address] [place] [address] PCP - General Family Medicine 04/03/20 documented as of this encounter
--- OUTSIDE RECORDS SUMMARY | 2025-01-14 14:31 | XMS_ITS | Encounter Summary ---
Author Organization [employer] Address [address] [facility] [address] [place] [address] Care Team Providers Care Document Clerk Name Role Phone Frances Osorio MD Primary Care Provide r Encounter Details Date Type Department Care Team (Late st Contact Info) Description 03/13/2024 Orders Only [facility] [address] [place], [place] [phone] Frances Osorio MD [address] [place], [place] [phone] Social History Tobacco Use Types Packs/Day Years [...] 2:00 PM EST Clinical Support [facility] [address] [place] [address] Hailee Bhatia RN documented as of this encounter Visit Diagnoses Not on filedocumented in this encounter Additional Health Concerns Assessment Noted Time PHQ-9 Depression Total Score: 0 10/06/19 23 1:33 PM EDT documented as of this encounter Care Teams Document Clerk Relationship Specialty Start Date End Date Frances Osorio MD [address] [place] [address] PCP - General Family Medicine 04/03/20 documented as of this encounter
--- OUTSIDE RECORDS SUMMARY | 2025-01-14 14:31 | XMS_ITS | Clinical Summary ---
Author Organization [employer] Address [address] [facility] [address] [place] [address] Care Team Providers Care [employer] Tutor Name Role Phone Frances Osorio MD Primary [...] up to 28 days. 28 tablet 5 5:20 PM EST 01/02/20 25 2024 Active oxyCODONE-aceta minophen (Percocet) [...] miss appointment with for anal manometry at [facility] Asthenia 02/24/2012 Osteoarthritis 10/20/2011 Hypertriglyceridemia 10/20/2011 [...] Type Department Care Team Description 01/01/2025 Refill [facility] [address] [place] [address] Frances Osorio MD Bilateral hip pain 11/30/2024 Refill [facility] [address] [place] [address] Frances Osorio MD Bilateral hip pain 11/21/2024 2:00 PM EDT Clinical Support [facility] [address] [place] [address] Hailee Bhatia RN Long-term current use of opiate analgesic (Primary Dx) 11/21/2024 Travel 11/01/2024 Refill [facility] [address] [place] [address] Frances Osorio MD Bilateral hip pain from Last 3 Months Immunizations Immunization Administration [...] Description 02/25/2025 2:00 PM EST Clinical Support [address] [address] Hailee Bhatia, RN Health Maintenance Due Date [...] Urine Drug Screen (11/21/2024 2:21 PM EDT) Pathologist [facility] Positive Negative Cocaine Screen, Urine Negative [...] - 11/21/2024 2:21 PM EDT [employer] cup Lot#[id number] Exp. 11/27/25 Internal Pass Control Frances Lua MD POINT OF CARE TEST EN TER/EDIT ORDERABLES Final Result * Hm Colonoscopy (07/21/2022) [facility] Provider HEALTH MAINTENANCE Final Result * (ABNORMAL) LIPID PANEL, STANDARD (08/07/2020 3:36 PM EDT) [facility] Chol/HDLC Ratio 4.1 <5.0 (calc) [facility] [...] LDL-C. Erik HANNAH et al. VANNESA. 2013;310(19): 1153-9780 (http://education.[employer]/faq/UOZ941) Non-HDL Cholesterol 139(H) <130 mg/dL (calc) [facility] Comment: For patients with diabetes plus 1 major ASCVD risk factor, treating to a non-HDL-C goal of <100 mg/dL (LDL-C of <70 mg/dL) is considered a therapeutic option. Triglycerides 162(H) <150 mg/dL [facility] 08/07/2020 3:36 PM EDT us Frances Lua MD LAB BLOOD ORDERABLES Final Result [facility] [address] [place] [address], from Last 3 Months or Most Recently Relevant to Health Maintenance Insurance [facility] [employer] OPTIONS (O D-SNP) [facility] Care Teams Elementary [employer] Tutor Relationship Specialty Start Date End Date Frances Osorio MD [address] [place] [id number] PCP - General Family Medicine 04/03/20
== END 2025-01-14 11:12 | disposition home or self-care (01) ==
LOC: HO.HOSX 11:11
PROVIDERS: Visit Provider Physician Assistant
DX: M70.62 Trochanteric bursitis, left hip (principal); Z96.642 Presence of left artificial hip joint
CPT/HCPCS: 73502; 99202

== ENCOUNTER 2025-01-14 11:36 | Outpatient (AMB) | payer OTHER, SELFPAY ==
--- NOTE | 2025-01-14 11:52 | A.OFFVIS_ITS ---
Intake Visit Reasons: OV- Bilateral Hip Pain, Left Hip - Hx of RT MERISSA Intake Note: Eladio is a 74 year old male who presents today as a follow up for his Bilateral Hip Pain, Left greater than right. At last visit on 11/20/20 we discussed the follow up from his PO- RT MERISSA 10/15/20 NE, never made a follow up. At today's visit he states that for the past two to three years he has had constant dullache radiating from his left hip, no numbness or tingling. He states that he has not tried physical therapy or injections for the left hip. Joinery Patternmaker Required: Yes Joinery Patternmaker Services: Joinery Patternmaker Present Joinery Patternmaker Name: Marialuisa [id number] Allergies No Known Allergies (No Known Allergies*) Allergy (Verified 09/11/24 15:07) HPI HPI OV- Bilateral Hip Pain, Left Hip - Hx of RT MERISSA: Details: Mr. Vega is a 74-year-old male with a history of a left total hip arthroplasty performed in 2016 and right total hip arthroplasty performed [place] [address] Manzo. Patient reports that he has had lateral sided left hip pain for greater than 1 year. He does not want to proceed with any cortisone injection or physical therapy. He reports that he is ?too old ?for physical therapy and does not wish to attend. 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 However, the patient reports that he does get pain relief with Percocet. [facility] Medical History (Updated 01/14/25 @ 15:02 by Margoth Sadler PA-C) Pre-op examination COVID-19 vaccine administered Arthritis History of BPH HTN (hypertension) GERD (gastroesophageal reflux disease) Hemorrhoids with complication Primary osteoarthritis of right hip Surgical History History of total right hip arthroplasty History of hemorrhoidectomy Hx of cataract extraction History of pterygium excision History of arthroplasty of left hip (11/09/16) History of prostate surgery (2004) History of colonoscopy History of esophagogastroduodenoscopy (EGD) Family History Brother Diabetes Blind Social History (Reviewed 09/11/24 @ 15:07 by HARSHAD CamejoBraden Household Members: None Are you a primary home care associate to a significant other at home: No Do you presently have visiting nurse or other home services: Yes ([facility]) Alcohol intake: current Alcohol intake frequency: holidays/special occasions only Alcohol type: beer Patient Tobacco Use Status: Never used Tobacco Substance Use Type: Marijuana Current occupational status: disabled 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 Review of Systems Const All systems reviewed & are unremarkable except as noted in HPI and below Physical Exam Const General: cooperative, healthy appearing and no acute distress Resp Effort & Inspection: normal respiratory effort and able to speak in complete sentences Extrem Other: Left hip: Full hip ROM in all planes. Tenderness to palpation over the greater trochanteric bursa. 5/5 strength with resisted hip flexion, knee extension, abduction, and abduction. Able to perform straight leg raise. NVI. Psych Appearance: grossly normal Mental Status: mental status grossly normal Attitude: cooperative Assessment & Plan Assessment & Plan (1) Greater trochanteric bursitis of left hip: Code(s): M70.62 - Trochanteric bursitis, left hip Category: Medical Plan Mr. Vega is a 74-year-old male with a history of a left total hip arthroplasty performed in 2016 and right total hip arthroplasty performed [place] [address] Manzo. Patient reports that he has had lateral sided left hip pain for greater than 1 year. He does not want to proceed with any cortisone injection or physical therapy. He reports that he is ?too old ?for physical therapy and does not wish to attend. 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 However, the patient reports that he does get pain relief with Percocet. While the office today, I have discussed conservative treatment options that include oral anti-inflammatories, physical therapy and cortisone injection. Again, patient has declined physical therapy and cortisone injection. Reviewed patient history including no GI ulcer/bleed, CKD, CHF, CAD, liver disease, bleeding disorders, or NSAID allergy. Current medications reviewed with no interactions or duplicate NSAID use. Discussed orthopedic considerations, including short-term use being appropriate for soft-tissue pain and potential effects on fracture healing if applicable. Reviewed risks: GI irr itation/bleeding, renal impairment, cardiovascular risk, and avoiding multiple NSAIDs. Instructed patient to take with food, avoid alcohol, and monitor for red-flag symptoms (black stools, hematemesis, severe abdominal pain, decreased urination, chest pain, SOB, worsening pain). Patient verbalized understanding. I sent a prescription for Celebrex to the patient's pharmacy to be taken 200 mg p.o. b.i.d. for 2 weeks and then PRN thereafter. He will follow up with Orthopedics p.r.n., sooner if needed. X-rays of bilateral hips which were obtained while in the office today and were reviewed by me, Margoth Sadler PA-C, revealed intact total hip arthroplasties with no evidence of hardware loosening or periprosthetic fracture. Orders: Orders XR hip RT min 2V Today M25.559 - Pain in unspecified hip XR hip LT min 2V Today M25.559 - Pain in unspecified hip Medications: New celecoxib (Celebrex) 200 mg PO BID 60 caps 0RF 30 days Coding Level of Care Code New Pt Level 3 (98212) Diagnoses Greater trochanteric bursitis of left hip M70.62
== END 2025-01-14 13:19 | disposition home or self-care (01) ==
PROVIDERS: PCP Internal Medicine; Visit Provider Physician Assistant
DX: M25.552 Pain in left hip (principal); Z47.89 Encounter for other orthopedic aftercare
CPT/HCPCS: 99203

== ENCOUNTER → 2025-01-14 11:43 | Outpatient (BNV) | payer OTHER, SELFPAY | PROVIDERS: Visit Provider Radiology Diagnostic Ultrasound | DX: M25.552 Pain in left hip (principal); M25.551 Pain in right hip | CPT/HCPCS: 73502 ==